=== PATIENT | female | born 1935 | race Caucasian/White ===

== ENCOUNTER 2019-02-21 07:50 | Inpatient (IN) ==
--- NOTE | 2019-02-21 08:10 | Emergency Department Note ---
Female Urogenital HPI - General Chief complaint: Urogenital-Female Stated complaint: Urinary frequency since friday Time Seen by Provider: 02/21/19 07:59 Source: patient Mode of arrival: wheelchair - History of Present Illness HPI Narrative: History of urinary frequency this morning. Symptoms started last night. She does have history of gout., Difficulty getting around. Generalized weakness. Associated nausea this morning she vomited up her tablets that she usually takes every morning. Didn't feel well. Denies abdominal pain but she was up all night every 20 minutes going to the bathroom. Feverish although temperature is normal today. Did have chills. Denies diarrhea, denies abdominal pain except burning with urination. MD Complaint: dysuria - Related Data Home Medications Medication Instructions Recorded Confirmed ketoconazole 2 % topical cream 1 applic TOPICAL BID g 03/09/15 10/02/18 omeprazole 20 mg capsule,delayed 20 mg PO QDAY cap 03/09/15 01/15/19 release spironolactone 25 mg tablet 25 mg PO QDAY tab 03/09/15 01/15/19 Cholesterol Formula See Dose Instructions PO 03/31/15 01/15/19 Flexcin See Dose Instructions PO 03/31/15 01/15/19 black branch See Dose Instructions PO 03/31/15 01/15/19 lactobacillus combination no.8 PO .QD 03/31/15 01/15/19 multivitamin,ik-rxxj-bhiubkar 1 tab PO QDAY 03/31/15 01/15/19 tablet Lou-C tablet PO QDAY 08/13/17 01/15/19 calcium mag d3 See Rx Instructions PO .COMPLEX 08/13/17 01/15/19 clobetasol 0.05 % scalp solution 1 applic TOPICAL ONCE PRN 08/13/17 10/02/18 esterified estrogens 0.625 mg 1 mg PO QDAY tab 08/13/17 01/15/19 tablet fluticasone 250 mcg-salmeterol 50 1 inh INHALATION Q12H PRN 08/13/17 01/15/19 mcg/dose blistr powdr for inhalation garlic lecthin PO BID 08/13/17 01/15/19 acetaminophen 500 mg capsule 1,000 mg PO TID cap 01/09/18 01/15/19 olmesartan 40 mg tablet See Rx Instructions .ROUTE 01/09/18 01/15/19 .COMPLEX tab omega 3 600 mg-dha 216 mg-epa 324 1 cap PO QDAY cap 01/09/18 01/15/19 mg-fish oil 1,200 mg capsule,del rel sennosides 8.6 mg tablet 25.8 mg PO QDAY tab 01/09/18 10/02/18 Previous Rx's Medication Instructions Recorded mupirocin 2 % topical ointment 1 applic TOPICAL BID #22 g 10/09/17 methylprednisolone 4 mg tablets in See Rx Instructions PO PER PKG DIR 06/05/18 a dose pack PRN #21 tab prednisone 5 mg tablet 5 mg PO QDAY #90 tab 01/08/19 febuxostat 80 mg tablet 80 mg PO QDAY #30 tab 01/11/19 Allergies Allergy/AdvReac Type Severity Reaction Status Date / Time MONTY Inhibitors Allergy Severe Unknown Unverified 02/21/19 07:55 albuterol Allergy Severe Unknown Unverified 02/21/19 07:55 [From Proventil HFA] allopurinol Allergy Severe Unknown Unverified 02/21/19 07:55 amlodipine [From Norvasc] Allergy Severe Unknown Unverified 02/21/19 07:55 ARB-Angiotensin Receptor Allergy Severe Unknown Unverified 02/21/19 07:55 Antagonist aspirin Allergy Severe Unknown Unverified 02/21/19 07:55 Beta-Blockers Allergy Severe Unknown Unverified 02/21/19 07:55 (Beta-Adrenergic Bloc Calcium Channel Blocking Allergy Severe Unknown Unverified 02/21/19 07:55 Agents-Chetan Carbetapentane Allergy Severe Unknown Unverified 02/21/19 07:55 [From Carba-XP] celecoxib [From Celebrex] Allergy Severe Unknown Unverified 02/21/19 07:55 clonidine Allergy Severe Unknown Unverified 02/21/19 07:55 codeine Allergy Severe Unknown Unverified 02/21/19 07:55 colchicine Allergy Severe Unknown Unverified 02/21/19 07:55 diltiazem [From Cardizem] Allergy Severe Unknown Unverified 02/21/19 07:55 doxycycline Allergy Severe Unknown Unverified 02/21/19 07:55 enalaprilat [From Vasotec] Allergy Severe Unknown Unverified 02/21/19 07:55 epoxy resin Allergy Severe Unknown Unverified 02/21/19 07:55 formaldehyde Allergy Severe Unknown Unverified 02/21/19 07:55 guaifenesin [From Carba-XP] Allergy Severe Unknown Unverified 02/21/19 07:55 hydrochlorothiazide Allergy Severe Unknown Unverified 02/21/19 07:55 [From Maxzide] hydrocodone Allergy Severe Unknown Unverified 02/21/19 07:55 iodine Allergy Severe Unknown Unverified 02/21/19 07:55 isradipine [From DynaCirc] Allergy Severe Unknown Unverified 02/21/19 07:55 lansoprazole [From Prevacid] Allergy Severe Unknown Unverified 02/21/19 07:55 nadolol [From Corgard] Allergy Severe Unknown Unverified 02/21/19 07:55 naproxen [From Naprosyn] Allergy Severe Unknown Unverified 02/21/19 07:55 Penicillins Allergy Severe Unknown Unverified 02/21/19 07:55 piroxicam [From Feldene] Allergy Severe Unknown Unverified 02/21/19 07:55 potassium Allergy Severe Unknown Unverified 02/21/19 07:55 salmeterol [From Serevent] Allergy Severe Unknown Unverified 02/21/19 07:55 Terazosin [From Hytrin] Allergy Severe Unknown Unverified 02/21/19 07:55 theophylline Allergy Severe Unknown Unverified 02/21/19 07:55 trandolapril [From Mavik] Allergy Severe Unknown Unverified 02/21/19 07:55 Triamterene [From Maxzide] Allergy Severe Unknown Unverified 02/21/19 07:55 Verapamil [From Isoptin] Allergy Severe Unknown Unverified 02/21/19 07:55 acetaminophen [From Vicodin] Allergy Intermediate Unknown Unverified 02/21/19 07:55 methocarbamol Allergy Intermediate Unknown Unverified 02/21/19 07:55 quinapril [From Accupril] Allergy Intermediate Unknown Unverified 02/21/19 07:55 cetirizine [From Zyrtec] Allergy Mild Unknown Unverified 02/21/19 07:55 doxazosin [From Cardura] Allergy Mild Unknown Unverified 02/21/19 07:55 atorvastatin [From Lipitor] Allergy Unknown Unknown Unverified 02/21/19 07:55 olmesartan Allergy Unknown Severe Verified 02/21/19 07:55 Edema Review of Systems Constitutional: Reports: fever, chills ENT ED: Reports: other (dry mouth). Denies: throat pain Cardiovascular: Denies: chest pain, palpitations Respiratory: Denies: shortness of breath Gastrointestinal: Reports: nausea, vomiting. Denies: abdominal pain Genitourinary: Reports: dysuria, urgency, frequency Past Medical History - Past Medical History Source: nursing notes reviewed Medical history: Reports: arthritis, asthma, GERD, hypertension, renal disease, other Surgical history ED: Reports: appendectomy, hysterectomy, tonsillectomy Family history: Reports: no significant family history - Social History smoking status: Never smoker Alcohol use: Reports: None Drug use: Reports: none Physical Exam Limitations: no limitations General appearance: alert, in no apparent distress, lethargic, obese Head: atraumatic, normocephalic, normal inspection Eye: Present: normal appearance, PERRL, EOMI. Absent: conjunctival injection ENT: Present: mucous membranes dry, TM's normal bilaterally, normal external ear exam. Absent: dental caries Neck: Present: normal inspection, full ROM, trachea midline. Absent: tenderness, meningismus Chest: Present: normal inspection, symmetric chest wall rise, tenderness Respiratory: Present: normal lung sounds bilaterally. Absent: respiratory distress, rales/crackles, wheezes Cardiovascular: Present: regular rate, normal rhythm, normal heart sounds Abdominal: Present: soft, normal bowel sounds. Absent: distention, tenderness, guarding Extremities: Present: normal inspection, full ROM, other (deformity of the MCPs both sides.). Absent: tenderness, pedal edema, joint swelling, calf tenderness Back: Present: normal inspection, other (thoracic kyphosis.). Absent: CVA tenderness (R), CVA tenderness (L) Neurological: Present: alert, oriented X3, CN II-XII intact, other (generally weak appearing). Absent: motor sensory deficit Psychiatric: Present: normal affect Skin: Present: warm, dry, normal color. Absent: rash Course - Reevaluation(s) Reevaluation #1: Signed out to Dr. peters 9 AM. Vital Signs Temperature 97.8 F 02/21/19 07:51 Pulse Rate 97 H 02/21/19 07:51 Respiratory Rate 20 02/21/19 07:51 Blood Pressure 154/82 02/21/19 07:51 Pulse Oximetry (%) 94 02/21/19 07:51 Temperature 97.8 F 02/21/19 07:51 Pulse Rate 97 H 02/21/19 07:51 Respiratory Rate 20 02/21/19 07:51 Blood Pressure 154/82 02/21/19 07:51 Pulse Oximetry (%) 94 02/21/19 07:51 Urogenital-Female - Lab Data Result diagrams: 02/21/19 08:23 02/21/19 08:23 Disposition Pt seen by DETECTOR CAR OPERATOR/PA only: No Clinical Impression: Urinary tract infection Disposition: Still a Patient Condition: Undetermined Referrals: Yohana Feliciano MD [Primary Care Provider] -
[2019-02-21] MEDS ORDERED: ONDANSETRON 4 MG/2 ML VIAL IV ONE (08:12)
[2019-02-21] MEDS ORDERED: LACTATED RINGERS 1,000 ML IV ONE (08:12)
[2019-02-21] MEDS ORDERED: ACETAMINOPHEN 325 MG TABLET PO ONE ×2 (08:16→13:17)
[2019-02-21 09:03] LABS: Basophils # (Auto) 0 K/mcL (0.0-0.3); Basophils % (Auto) 0 % (0.0-2.0); Eosinophils # (Auto) 0.1 K/mcL (0.0-0.7); Eosinophils % (Auto) 0.7 % (0.0-7.0); Granulocytes % (Auto) 94.1 % (38.0-78.0); Hematocrit 41.8 % (36.0-48.0); Hemoglobin 14.1 g/dL (12.0-15.0); Lymphocytes # (Auto) 0.5 K/mcL (1.5-4.8); Lymphocytes % (Auto) 4.8 % (15.5-49.0); Mean Cell Volume 90.3 fL (80.0-100.0); Mean Corpuscular HGB Conc 33.8 g/dL (31.0-36.0); Mean Platelet Volume 7.4 fL (7.4-10.4); Monocytes # (Auto) 0 K/mcL (0.1-0.9); Monocytes % (Auto) 0.4 % (1.0-12.0); Platelet Count 121 K/mcL (140-440); RBC 4.63 M/mcL (4.00-5.20); Red Cell Distribution Width 14.4 % (11.5-14.5); WBC 10.4 K/mcL (4.5-11.0)
[2019-02-21 09:12] LABS: ALT/SGPT 29 U/l (0-40); AST/SGOT 35 U/l (0-37); Albumin/Globulin Ratio 1.5 (1.0-2.3); Alkaline Phosphatase 49 U/L (39-117); Bilirubin,Total 1.1 mg/dL (0.0-1.0); Blood Urea Nitrogen 16 mg/dl (8-23); C-Reactive Protein 7.2 mg/dl (0.0-0.8); Calcium 9.5 mg/dl (8.6-10.4); Carbon Dioxide 25 mmol/L (22-30); Chloride 96 mmol/L (96-108); Globulin 2.7 gm/dL (2.2-3.7); Glomerular Filtration Rate 46; Glucose 140 mg/dL (70-105)
[2019-02-21 10:00] LABS: Appearance,Urine CLOUDY; Bacteria,Urine FEW /hpf (0); Bilirubin,Urine NEG (NEG); Color,Urine YELLOW; Culture Indicated,Urine YES; Glucose,Urine (UA) NEGATIVE (NEG); Ketones,Urine 5/TR mg/dL (NEG); Leukocyte Esterase,Urine 500 /uL (NEG); Mucus,Urine FEW /hpf (0); Nitrate,Urine NEG (NEG); Protein,Urine 100 mg/dL (NEG); Specific Gravity,Urine 1.014 (1.000-1.035); Urine Blood >=1.0 mg/dL (<0.03); Urine RBC 110 /hpf (0-1); Urine Squamous Epithelial Cell 1 /hpf (0-4); Urine WBC > 182 /hpf (0-4); Urobilinogen,Urine NEG (NEG)
[2019-02-21] MEDS ORDERED: LEVOFLOXACIN 750 MG/150 ML BAG IV ONE (10:18)
[2019-02-21] MEDS ORDERED: 0.9 % SODIUM CHLORIDE 1,000 ML IV ONE ×2 (12:03→13:44)
--- NOTE | 2019-02-21 13:57 | Emergency Department Note ---
General Adult HPI - General Chief complaint: Urogenital-Female Stated complaint: Urinary frequency since friday Time Seen by Provider: 02/21/19 07:59 Source: patient Mode of arrival: wheelchair Limitations: no limitations - Related Data Home Medications Medication Instructions Recorded Confirmed ketoconazole 2 % topical cream 1 applic TOPICAL BID g 03/09/15 10/02/18 omeprazole 20 mg capsule,delayed 20 mg PO QDAY cap 03/09/15 01/15/19 release spironolactone 25 mg tablet 25 mg PO QDAY tab 03/09/15 01/15/19 Cholesterol Formula See Dose Instructions PO 03/31/15 01/15/19 Flexcin See Dose Instructions PO 03/31/15 01/15/19 black branch See Dose Instructions PO 03/31/15 01/15/19 lactobacillus combination no.8 PO .QD 03/31/15 01/15/19 multivitamin,rm-dmbt-iprbajmw 1 tab PO QDAY 03/31/15 01/15/19 tablet Lou-C tablet PO QDAY 08/13/17 01/15/19 calcium mag d3 See Rx Instructions PO .COMPLEX 08/13/17 01/15/19 clobetasol 0.05 % scalp solution 1 applic TOPICAL ONCE PRN 08/13/17 10/02/18 esterified estrogens 0.625 mg 1 mg PO QDAY tab 08/13/17 01/15/19 tablet fluticasone 250 mcg-salmeterol 50 1 inh INHALATION Q12H PRN 08/13/17 01/15/19 mcg/dose blistr powdr for inhalation garlic lecthin PO BID 08/13/17 01/15/19 acetaminophen 500 mg capsule 1,000 mg PO TID cap 01/09/18 01/15/19 olmesartan 40 mg tablet See Rx Instructions .ROUTE 01/09/18 01/15/19 .COMPLEX tab omega 3 600 mg-dha 216 mg-epa 324 1 cap PO QDAY cap 01/09/18 01/15/19 mg-fish oil 1,200 mg capsule,del rel sennosides 8.6 mg tablet 25.8 mg PO QDAY tab 01/09/18 10/02/18 Previous Rx's Medication Instructions Recorded mupirocin 2 % topical ointment 1 applic TOPICAL BID #22 g 10/09/17 methylprednisolone 4 mg tablets in See Rx Instructions PO PER PKG DIR 06/05/18 a dose pack PRN #21 tab prednisone 5 mg tablet 5 mg PO QDAY #90 tab 01/08/19 febuxostat 80 mg tablet 80 mg PO QDAY #30 tab 01/11/19 Allergies Allergy/AdvReac Type Severity Reaction Status Date / Time MONTY Inhibitors Allergy Severe Unknown Unverified 02/21/19 07:55 albuterol Allergy Severe Unknown Unverified 02/21/19 07:55 [From Proventil HFA] allopurinol Allergy Severe Unknown Unverified 02/21/19 07:55 amlodipine [From Norvasc] Allergy Severe Unknown Unverified 02/21/19 07:55 ARB-Angiotensin Receptor Allergy Severe Unknown Unverified 02/21/19 07:55 Antagonist aspirin Allergy Severe Unknown Unverified 02/21/19 07:55 Beta-Blockers Allergy Severe Unknown Unverified 02/21/19 07:55 (Beta-Adrenergic Bloc Calcium Channel Blocking Allergy Severe Unknown Unverified 02/21/19 07:55 Agents-Chetan Carbetapentane Allergy Severe Unknown Unverified 02/21/19 07:55 [From Carba-XP] celecoxib [From Celebrex] Allergy Severe Unknown Unverified 02/21/19 07:55 clonidine Allergy Severe Unknown Unverified 02/21/19 07:55 codeine Allergy Severe Unknown Unverified 02/21/19 07:55 colchicine Allergy Severe Unknown Unverified 02/21/19 07:55 diltiazem [From Cardizem] Allergy Severe Unknown Unverified 02/21/19 07:55 doxycycline Allergy Severe Unknown Unverified 02/21/19 07:55 enalaprilat [From Vasotec] Allergy Severe Unknown Unverified 02/21/19 07:55 epoxy resin Allergy Severe Unknown Unverified 02/21/19 07:55 formaldehyde Allergy Severe Unknown Unverified 02/21/19 07:55 guaifenesin [From Carba-XP] Allergy Severe Unknown Unverified 02/21/19 07:55 hydrochlorothiazide Allergy Severe Unknown Unverified 02/21/19 07:55 [From Maxzide] hydrocodone Allergy Severe Unknown Unverified 02/21/19 07:55 iodine Allergy Severe Unknown Unverified 02/21/19 07:55 isradipine [From DynaCirc] Allergy Severe Unknown Unverified 02/21/19 07:55 lansoprazole [From Prevacid] Allergy Severe Unknown Unverified 02/21/19 07:55 nadolol [From Corgard] Allergy Severe Unknown Unverified 02/21/19 07:55 naproxen [From Naprosyn] Allergy Severe Unknown Unverified 02/21/19 07:55 Penicillins Allergy Severe Unknown Unverified 02/21/19 07:55 piroxicam [From Feldene] Allergy Severe Unknown Unverified 02/21/19 07:55 potassium Allergy Severe Unknown Unverified 02/21/19 07:55 salmeterol [From Serevent] Allergy Severe Unknown Unverified 02/21/19 07:55 Terazosin [From Hytrin] Allergy Severe Unknown Unverified 02/21/19 07:55 theophylline Allergy Severe Unknown Unverified 02/21/19 07:55 trandolapril [From Mavik] Allergy Severe Unknown Unverified 02/21/19 07:55 Triamterene [From Maxzide] Allergy Severe Unknown Unverified 02/21/19 07:55 Verapamil [From Isoptin] Allergy Severe Unknown Unverified 02/21/19 07:55 acetaminophen [From Vicodin] Allergy Intermediate Unknown Unverified 02/21/19 07:55 methocarbamol Allergy Intermediate Unknown Unverified 02/21/19 07:55 quinapril [From Accupril] Allergy Intermediate Unknown Unverified 02/21/19 07:55 cetirizine [From Zyrtec] Allergy Mild Unknown Unverified 02/21/19 07:55 doxazosin [From Cardura] Allergy Mild Unknown Unverified 02/21/19 07:55 atorvastatin [From Lipitor] Allergy Unknown Unknown Unverified 02/21/19 07:55 olmesartan Allergy Unknown Severe Verified 02/21/19 07:55 Edema Review of Systems Constitutional: Reports: fever, chills ENT ED: Reports: other (dry mouth). Denies: throat pain Cardiovascular: Denies: chest pain, palpitations Respiratory: Denies: shortness of breath Gastrointestinal: Reports: nausea, vomiting. Denies: abdominal pain Genitourinary: Reports: dysuria, urgency, frequency Past Medical History - Past Medical History Medical history: Reports: arthritis, asthma, GERD, hypertension, renal disease, other Surgical history ED: Reports: appendectomy, hysterectomy, tonsillectomy - Social History smoking status: Never smoker Alcohol use: Reports: None Drug use: Reports: none Physical Exam Limitations: no limitations General appearance: alert, in no apparent distress, lethargic, obese Course Vital Signs Temperature 97.8 F 02/21/19 07:51 Pulse Rate 97 H 02/21/19 07:51 Respiratory Rate 20 02/21/19 07:51 Blood Pressure 154/82 02/21/19 07:51 Pulse Oximetry (%) 94 02/21/19 07:51 Temperature 101 F H 02/21/19 13:24 Pulse Rate 78 02/21/19 13:30 Respiratory Rate 21 02/21/19 13:30 Blood Pressure 120/97 02/21/19 13:30 Pulse Oximetry (%) 100 02/21/19 13:50 Medical Decision Making - MDM Narrative Medical decision making narrative: Patient's initial note lab work was suggestive of UTI. He was treated with IV Levaquin. Her lactic acid was slightly elevated at 2.4 and she was hydrated. After receiving the antibiotic she developed fever and chills and her temperature went from 97-101. Her O2 saturation dropped slightly. However chest x-ray looks normal. She will be admitted to the hospital for potential urosepsis. - Lab Data Lab results reviewed: Yes I reviewed the patient's lab results. Result diagrams: 02/21/19 08:23 02/21/19 08:23 Lab Results 02/21/19 02/21/19 02/21/19 Range/Units 08:14 08:23 08:23 WBC 10.4 (4.5-11.0) K/mcL RBC 4.63 (4.00-5.20) M/mcL Hgb 14.1 (12.0-15.0) g/dL Hct 41.8 (36.0-48.0) % MCV 90.3 (80.0-100.0) fL MCH 30.5 (26.0-34.0) pg MCHC 33.8 (31.0-36.0) g/dL RDW 14.4 (11.5-14.5) % Plt Count 121 L (140-440) K/mcL MPV 7.4 (7.4-10.4) fL Gran % 94.1 H (38.0-78.0) % Lymph % (Auto) 4.8 L (15.5-49.0) % Kidder % (Auto) 0.4 L (1.0-12.0) % Eos % (Auto) 0.7 (0.0-7.0) % Baso % (Auto) 0 (0.0-2.0) % Gran # 9.8 H (1.8-8.0) K/mcL Lymph # (Auto) 0.5 L (1.5-4.8) K/mcL Kidder # (Auto) 0 L (0.1-0.9) K/mcL Eos # (Auto) 0.1 (0.0-0.7) K/mcL Baso # (Auto) 0 (0.0-0.3) K/mcL VBG Lactic Acid (0.5-2.0) mmol/L Sodium 137 (133-145) mmol/L Potassium 4.4 (3.3-5.1) mmol/L Chloride 96 (96-108) mmol/L Carbon Dioxide 25 (22-30) mmol/L Anion Gap 16.0 (8-16) BUN 16 (8-23) mg/dl Creatinine 1.1 (0.6-1.1) mg/dl GFR Calculation 46 Glucose 140 H (70-105) mg/dL Calcium 9.5 (8.6-10.4) mg/dl Total Bilirubin 1.1 H (0.0-1.0) mg/dL AST 35 (0-37) U/l ALT 29 (0-40) U/l Alkaline Phosphatase 49 (39-117) U/L C-Reactive Protein 7.2 H (0.0-0.8) mg/dl Total Protein 6.7 (5.9-8.4) gm/dL Albumin 4.0 (3.2-5.2) gm/dL Globulin 2.7 (2.2-3.7) gm/dL Albumin/Globulin Ratio 1.5 (1.0-2.3) Urine Color Yellow Urine Appearance Cloudy Urine pH 5.0 (5.0-9.0) Ur Specific Micro 1.014 (1.000-1.035) Urine Protein 100 A (NEG) mg/dL Urine Glucose (UA) Negative (NEG) mg/dL Urine Ketones 5/tr A (NEG) mg/dL Urine Occult Blood >=1.0 A (<0.03) mg/dL Urine Nitrate Neg (NEG) Urine Bilirubin Neg (NEG) mg/dL Urine Urobilinogen Neg (NEG) mg/dL Ur Leukocyte Esterase 500 A (NEG) /uL Urine RBC 110 H (0-1) /hpf Urine WBC > 182 H (0-4) /hpf Ur Squamous Epith Cells 1 (0-4) /hpf Urine Bacteria Few A (0) /hpf Urine Mucus Few (0) /hpf Ur Culture Indicated? Yes 02/21/19 02/21/19 Range/Units 08:23 12:26 WBC (4.5-11.0) K/mcL RBC (4.00-5.20) M/mcL Hgb (12.0-15.0) g/dL Hct (36.0-48.0) % MCV (80.0-100.0) fL MCH (26.0-34.0) pg MCHC (31.0-36.0) g/dL RDW (11.5-14.5) % Plt Count (140-440) K/mcL MPV (7.4-10.4) fL Gran % (38.0-78.0) % Lymph % (Auto) (15.5-49.0) % Kidder % (Auto) (1.0-12.0) % Eos % (Auto) (0.0-7.0) % Baso % (Auto) (0.0-2.0) % Gran # (1.8-8.0) K/mcL Lymph # (Auto) (1.5-4.8) K/mcL Kidder # (Auto) (0.1-0.9) K/mcL Eos # (Auto) (0.0-0.7) K/mcL Baso # (Auto) (0.0-0.3) K/mcL VBG Lactic Acid 2.4 H 1.8 (0.5-2.0) mmol/L Sodium (133-145) mmol/L Potassium (3.3-5.1) mmol/L Chloride (96-108) mmol/L Carbon Dioxide (22-30) mmol/L Anion Gap (8-16) BUN (8-23) mg/dl Creatinine (0.6-1.1) mg/dl GFR Calculation Glucose (70-105) mg/dL Calcium (8.6-10.4) mg/dl Total Bilirubin (0.0-1.0) mg/dL AST (0-37) U/l ALT (0-40) U/l Alkaline Phosphatase (39-117) U/L C-Reactive Protein (0.0-0.8) mg/dl Total Protein (5.9-8.4) gm/dL Albumin (3.2-5.2) gm/dL Globulin (2.2-3.7) gm/dL Albumin/Globulin Ratio (1.0-2.3) Urine Color Urine Appearance Urine pH (5.0-9.0) Ur Specific Micro (1.000-1.035) Urine Protein (NEG) mg/dL Urine Glucose (UA) (NEG) mg/dL Urine Ketones (NEG) mg/dL Urine Occult Blood (<0.03) mg/dL Urine Nitrate (NEG) Urine Bilirubin (NEG) mg/dL Urine Urobilinogen (NEG) mg/dL Ur Leukocyte Esterase (NEG) /uL Urine RBC (0-1) /hpf Urine WBC (0-4) /hpf Ur Squamous Epith Cells (0-4) /hpf Urine Bacteria (0) /hpf Urine Mucus (0) /hpf Ur Culture Indicated? - Radiology Data Radiology results reviewed: Yes I reviewed the patient's radiology results. Disposition Pt seen by STAMPING BENCH DIE MAKER/PA only: No Clinical Impression: Urinary tract infection Disposition: Xfer As Inpt ([facility]) Condition: Good Referrals: Yohana Feliciano MD [Primary Care Provider] - Time of Disposition: 13:57
--- NOTE | 2019-02-21 14:00 | XRay Report ---
CLINICAL INFORMATION: Hypoxia COMPARISON: 10/07/2018 FINDINGS: Film taken a suboptimal inspiratory result shows normal heart size, mediastinum and pulmonary vessels. Lungs are clear. No effusions. IMPRESSION: Normal Interpreted and Authenticated by: Jovon Ford 02/21/19
--- NOTE | 2019-02-21 14:56 | Internal Med History&Physical ---
Medical - H&P: HPI Patient information: Note initiated : 02/21/19 at 2:53 pm Service Date, if different from initiated Date: [] Patient: Idalia Holloway 83 y/o F admitted on for Urinary Frequency Since Friday. Chief Complaint: [] History of present illness: Ms. Holloway is a 83 year old F Patient presents to the ED with urinary frequency dysuria generalized malaise and chills. Take her morning medication this morning and had episode of nausea and vomiting. In the ED she was evaluated and found to have urinary tract infection. He was given a dose of Levaquin. 15 to 20 minutes after that she developed increased temperature some hypoxia and shaking. Lactate was also elevated initially. There was concern that this was developing sepsis. Hospitalist was contacted blood pressure started trending down towards the end of the ED stay. Patient complains of dysuria and urinary frequency. She was up most of the night last night urinating. Review of Systems: Pertinent positives as above. Denies headache/chest or abdominal pain/cough/dyspnea/diarrhea. Remaining 10 point review of system reviewed negative Medical - H&P: PMH Medical history: Medical History (Last Reviewed 10/02/18 @ 08:11 by Alma Delia Gillespie RN) senior care (current) use of systemic steroids (Acute) Left shoulder pain (Acute) Hyperuricemia (Chronic) Encounter for long-term (current) use of high-risk medication (Acute) Tophaceous gout (Acute) Hypertensive renal disease (Chronic) CKD (chronic kidney disease), stage III (Chronic) History of hysterectomy (Chronic) Hormone replacement therapy (Chronic) GERD (gastroesophageal reflux disease) (Chronic) Asthma (Chronic) Raynaud's syndrome (Chronic) Hyperlipidemia (Chronic) Right shoulder pain (Chronic) Osteoarthritis (Chronic) Tailor's bunion (Chronic) Social History (Last Updated 01/15/19 @ 09:38 by Don Spencer MD) No Social History Section defined Metatarsalgia (Chronic) Hyperkeratosis (Chronic) Porokeratosis (Chronic) 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) Gout (Chronic) Hypertension, essential (Chronic) Dysuria (Chronic) Past Surgical History (Last Reviewed 10/02/18 @ 08:11 by Alma Delia Gillespie RN) History of adenoidectomy (Chronic) History of tonsillectomy (Chronic) History of appendectomy (Chronic) Social history: Never smoker but exposed to secondhand smoke No alcohol use Ambulates independently Lives with daughter Medical - H&P: Meds Home Medications Medication Instructions Recorded Confirmed Type ketoconazole 2 % topical cream 1 applic TOPICAL BID g 03/09/15 10/02/18 History omeprazole 20 mg capsule,delayed 20 mg PO QDAY cap 03/09/15 01/15/19 History release spironolactone 25 mg tablet 25 mg PO QDAY tab 03/09/15 01/15/19 History Cholesterol Formula See Dose Instructions PO 03/31/15 01/15/19 History Flexcin See Dose Instructions PO 03/31/15 01/15/19 History black branch See Dose Instructions PO 03/31/15 01/15/19 History lactobacillus combination no.8 PO .QD 03/31/15 01/15/19 History multivitamin,[id number]-[id number] 1 tab PO QDAY 03/31/15 01/15/19 History tablet Lou-C tablet PO QDAY 08/13/17 01/15/19 History calcium mag d3 See Rx Instructions PO .COMPLEX 08/13/17 01/15/19 History clobetasol 0.05 % scalp solution 1 applic TOPICAL ONCE PRN 08/13/17 10/02/18 History esterified estrogens 0.625 mg 1 mg PO QDAY tab 08/13/17 01/15/19 History tablet fluticasone 250 mcg-salmeterol 50 1 inh INHALATION Q12H PRN 08/13/17 01/15/19 History mcg/dose blistr powdr for inhalation garlic lecthin PO BID 08/13/17 01/15/19 History mupirocin 2 % topical ointment 1 applic TOPICAL BID #22 g 10/09/17 10/02/18 Rx acetaminophen 500 mg capsule 1,000 mg PO TID cap 01/09/18 01/15/19 History olmesartan 40 mg tablet See Rx Instructions .ROUTE 01/09/18 01/15/19 History .COMPLEX tab omega 3 600 mg-dha 216 mg-epa 324 1 cap PO QDAY cap 01/09/18 01/15/19 History mg-fish oil 1,200 mg capsule,del rel sennosides 8.6 mg tablet 25.8 mg PO QDAY tab 01/09/18 10/02/18 History methylprednisolone 4 mg tablets in See Rx Instructions PO PER PKG DIR 06/05/18 01/15/19 Rx a dose pack PRN #21 tab prednisone 5 mg tablet 5 mg PO QDAY #90 tab 01/08/19 Rx febuxostat 80 mg tablet 80 mg PO QDAY #30 tab 01/11/19 01/15/19 Rx Allergies Allergy/AdvReac Type Severity Reaction Status Date / Time MONTY Inhibitors Allergy Severe Unknown Unverified 02/21/19 07:55 albuterol Allergy Severe Unknown Unverified 02/21/19 07:55 [From Proventil HFA] allopurinol Allergy Severe Unknown Unverified 02/21/19 07:55 amlodipine [From Norvasc] Allergy Severe Unknown Unverified 02/21/19 07:55 ARB-Angiotensin Receptor Allergy Severe Unknown Unverified 02/21/19 07:55 Antagonist aspirin Allergy Severe Unknown Unverified 02/21/19 07:55 Beta-Blockers Allergy Severe Unknown Unverified 02/21/19 07:55 (Beta-Adrenergic Bloc Calcium Channel Blocking Allergy Severe Unknown Unverified 02/21/19 07:55 Agents-Chetan Carbetapentane Allergy Severe Unknown Unverified 02/21/19 07:55 [From Carba-XP] celecoxib [From Celebrex] Allergy Severe Unknown Unverified 02/21/19 07:55 clonidine Allergy Severe Unknown Unverified 02/21/19 07:55 codeine Allergy Severe Unknown Unverified 02/21/19 07:55 colchicine Allergy Severe Unknown Unverified 02/21/19 07:55 diltiazem [From Cardizem] Allergy Severe Unknown Unverified 02/21/19 07:55 doxycycline Allergy Severe Unknown Unverified 02/21/19 07:55 enalaprilat [From Vasotec] Allergy Severe Unknown Unverified 02/21/19 07:55 epoxy resin Allergy Severe Unknown Unverified 02/21/19 07:55 formaldehyde Allergy Severe Unknown Unverified 02/21/19 07:55 guaifenesin [From Carba-XP] Allergy Severe Unknown Unverified 02/21/19 07:55 hydrochlorothiazide Allergy Severe Unknown Unverified 02/21/19 07:55 [From Maxzide] hydrocodone Allergy Severe Unknown Unverified 02/21/19 07:55 iodine Allergy Severe Unknown Unverified 02/21/19 07:55 isradipine [From DynaCirc] Allergy Severe Unknown Unverified 02/21/19 07:55 lansoprazole [From Prevacid] Allergy Severe Unknown Unverified 02/21/19 07:55 nadolol [From Corgard] Allergy Severe Unknown Unverified 02/21/19 07:55 naproxen [From Naprosyn] Allergy Severe Unknown Unverified 02/21/19 07:55 Penicillins Allergy Severe Unknown Unverified 02/21/19 07:55 piroxicam [From Feldene] Allergy Severe Unknown Unverified 02/21/19 07:55 potassium Allergy Severe Unknown Unverified 02/21/19 07:55 salmeterol [From Serevent] Allergy Severe Unknown Unverified 02/21/19 07:55 Terazosin [From Hytrin] Allergy Severe Unknown Unverified 02/21/19 07:55 theophylline Allergy Severe Unknown Unverified 02/21/19 07:55 trandolapril [From Mavik] Allergy Severe Unknown Unverified 02/21/19 07:55 Triamterene [From Maxzide] Allergy Severe Unknown Unverified 02/21/19 07:55 Verapamil [From Isoptin] Allergy Severe Unknown Unverified 02/21/19 07:55 acetaminophen [From Vicodin] Allergy Intermediate Unknown Unverified 02/21/19 07:55 methocarbamol Allergy Intermediate Unknown Unverified 02/21/19 07:55 quinapril [From Accupril] Allergy Intermediate Unknown Unverified 02/21/19 07:55 cetirizine [From Zyrtec] Allergy Mild Unknown Unverified 02/21/19 07:55 doxazosin [From Cardura] Allergy Mild Unknown Unverified 02/21/19 07:55 atorvastatin [From Lipitor] Allergy Unknown Unknown Unverified 02/21/19 07:55 olmesartan Allergy Unknown Severe Verified 02/21/19 07:55 Edema Medical - H&P: Exam - Constitutional Vitals: Temp Pulse Resp BP Pulse Ox 99.4 F H 92 H 20 94/70 90 02/21/19 14:09 02/21/19 14:01 02/21/19 14:01 02/21/19 14:39 02/21/19 14:15 Exam: General: Alert, Awake, No acute Distress, obese Eyes/N/T: EOMI, PEERL, DMM Head/Neck: neck supple, normocephalic atraumatic CV: RRR, No murmurs, normal s1/s2 Pulm: Clear b/l, no wheezing/rhonchi/rales Abd: soft, nontender, +BS x4 Ext: no clubbing/cyanosis/edema Neuro: Alert, no focal deficits, moves all extremities, CN 2-12 grossly intact, symmetrical strength b/l upper/lower, sensations intact b/l upper/lower Skin: warm/dry Medical - H&P: Reslt - Labs CBC & Chem 7: 02/21/19 08:23 02/21/19 08:23 Labs: Short CBC 02/21/19 Range/Units 08:23 WBC 10.4 (4.5-11.0) K/mcL Hgb 14.1 (12.0-15.0) g/dL Hct 41.8 (36.0-48.0) % Plt Count 121 L (140-440) K/mcL BMP 02/21/19 08:23 Sodium 137 Potassium 4.4 Chloride 96 Carbon Dioxide 25 BUN 16 Creatinine 1.1 Glucose 140 H Calcium 9.5 Liver Function 02/21/19 Range/Units 08:23 Total Bilirubin 1.1 H (0.0-1.0) mg/dL AST 35 (0-37) U/l ALT 29 (0-40) U/l Alkaline Phosphatase 49 (39-117) U/L Albumin 4.0 (3.2-5.2) gm/dL Urine 02/21/19 Range/Units 08:14 Urine Color Yellow Urine Appearance Cloudy Urine pH 5.0 (5.0-9.0) Ur Specific Loop 1.014 (1.000-1.035) Urine Protein 100 A (NEG) mg/dL Urine Glucose (UA) Negative (NEG) mg/dL - Impressions Chest x-ray unremarkable Medical - H&P: A/P - Narrative A/P Narrative: A: *UTI: *SIRS: *Likely Allergic Rxn to Levaquin *lactic acidosis: improved *CKD III: Follows with nephrology *HTN: *GERD: *Gout: Follows with Dr. Calixto -On prednisone 5mg daily and Uloric *Immunosuppressed: see above *Asthma: P: -Rocephin, pending UC/BC -IVF's -cont ARB -home IH's, prn neb -Continue home prednisone -clarify home meds -ppx: Lovenox/home PPI DNR
[2019-02-21] MEDS ORDERED: ONDANSETRON 4 MG/2 ML VIAL IV PRN (17:09)
[2019-02-21] MEDS ORDERED: PROMETHAZINE 25 MG/ML VIAL IV PRN (17:09)
[2019-02-21] MEDS ORDERED: ALBUTEROL SULFATE 2.5 MG/3 ML NEBULIZER NEB PRN (17:09)
[2019-02-21] MEDS ORDERED: predniSONE 20 MG TABLET PO ONE (17:09)
[2019-02-21] MEDS ORDERED: cefTRIAXone 1 GM in DEXTROSE 5% IN WATER 50 ML IV SCH (17:09)
[2019-02-21] MEDS ORDERED: ACETAMINOPHEN 325 MG TABLET PO PRN (17:09)
[2019-02-21] MEDS ORDERED: BISACODYL 10 MG SUPP.RECT PR PRN (17:09)
[2019-02-21] MEDS ORDERED: 0.9 % SODIUM CHLORIDE 500 ML IV SCH (17:09)
[2019-02-21] MEDS: cefTRIAXone 1 GM VIAL IV SCH (19:07)
[2019-02-21] MEDS: 0.9 % SODIUM CHLORIDE 10 ML SYRINGE IV SCH (21:10)
[2019-02-21] MEDS: FAMOTIDINE 20 MG TABLET PO SCH (21:10)
[2019-02-22] MEDS: 0.9 % SODIUM CHLORIDE 10 ML SYRINGE IV SCH ×3 (06:21→20:19)
[2019-02-22 06:36] LABS: Basophils # (Auto) 0 K/mcL (0.0-0.3); Basophils % (Auto) 0 % (0.0-2.0); Eosinophils # (Auto) 0 K/mcL (0.0-0.7); Eosinophils % (Auto) 0 % (0.0-7.0); Granulocytes % (Auto) 93.4 % (38.0-78.0); Hematocrit 38.9 % (36.0-48.0); Hemoglobin 12.9 g/dL (12.0-15.0); Lymphocytes # (Auto) 0.8 K/mcL (1.5-4.8); Lymphocytes % (Auto) 4.9 % (15.5-49.0); Mean Cell Volume 92.8 fL (80.0-100.0); Mean Corpuscular HGB Conc 33.3 g/dL (31.0-36.0); Monocytes # (Auto) 0.3 K/mcL (0.1-0.9); Monocytes % (Auto) 1.7 % (1.0-12.0); Platelet Count 105 K/mcL (140-440); RBC 4.19 M/mcL (4.00-5.20); Red Cell Distribution Width 14.7 % (11.5-14.5); WBC 16.6 K/mcL (4.5-11.0)
[2019-02-22 06:54] LABS: ALT/SGPT 29 U/l (0-40); AST/SGOT 49 U/l (0-37); Albumin 3.2 gm/dL (3.2-5.2); Albumin/Globulin Ratio 1.1 (1.0-2.3); Alkaline Phosphatase 47 U/L (39-117); Bilirubin,Direct 0.3 mg/dL (0.0-0.3); Bilirubin,Total 0.6 mg/dL (0.0-1.0); Blood Urea Nitrogen 19 mg/dl (8-23); Calcium 8.5 mg/dl (8.6-10.4); Carbon Dioxide 21 mmol/L (22-30); Chloride 107 mmol/L (96-108); Globulin 2.8 gm/dL (2.2-3.7); Glomerular Filtration Rate 41; Glucose 167 mg/dL (70-105); Lactate Dehydrogenase 271 U/L (94-250); Phosphorous 2.3 mg/dL (2.7-4.5); Triglycerides 78 mg/dl (<150); Uric Acid 4.7 mg/dL (2.5-8.0)
[2019-02-22] MEDS ORDERED: CLOBETASOL PROPIONATE TOPICAL PRN (08:05)
--- NOTE | 2019-02-22 08:07 | Internal Med Progress Note ---
Medical - PN: Subj Patient information: Note initiated : 02/22/19 at 8:06 am Service Date, if different from initiated Date: [] Patient: Idalia Holloway 83 y/o F admitted on 02/21/19 for Urinary Frequency Since Friday. Chief Complaint: [] Interval history: Ms. Holloway is a 83 year old F Patient presents to the ED with urinary frequency dysuria generalized malaise and chills. Take her morning medication this morning and had episode of nausea and vomiting. In the ED she was evaluated and found to have urinary tract infection. He was given a dose of Levaquin. 15 to 20 minutes after that she developed increased temperature some hypoxia and shaking. Lactate was also elevated initially. There was concern that this was developing sepsis. Hospitalist was contacted blood pressure started trending down towards the end of the ED stay. Patient complains of dysuria and urinary frequency. She was up most of the night last night urinating. 02/22 Poor sleep is she has occasionally difficulty sleeping anyway. Otherwise no complaints of feeling little better. Review of Systems: denies headache/fever/chills/nausea/vomiting/chest or abdominal pain/cough/dyspnea/diarrhea. Otherwise see above. - Constitutional Vitals: Vital Signs Temp Pulse Resp BP Pulse Ox 97.6 F 60 16 133/61 95 02/22/19 04:00 02/22/19 04:00 02/22/19 04:00 02/22/19 04:00 02/21/19 23:14 Period Temp Pulse Resp BP Sys/Crane Pulse Ox Last 24 Hr 97.6 F-101 F 55-120 16-25 78-163/54-116 83-100 Intake and Output 02/21/19 02/22/19 02/22/19 21:59 05:59 13:59 Intake Total 1240 240 Output Total 200 780 125 Balance 1040 -540 -125 Weight 94.982 kg Intake & Output: Intake & Output 02/21/19 02/22/19 02/22/19 21:59 05:59 13:59 Intake Total 1240 240 Output Total 200 780 125 Balance 1040 -540 -125 Weight 94.982 kg Intake: IV 1000 Sodium Chloride 0.9% 1,000 ml @ 1000 Wide Open IV BOLUS ONE Rx#: [id number] Oral 240 240 Output: Void Amount 200 780 125 Other: Urine Appearance Clear Clear Urine Color Light Rabia Light Rabia Urine Odor Normal Normal Exam: General: Alert, Awake, No acute Distress, obese Eyes/N/T: EOMI, Head/Neck: neck supple, CV: RRR, No murmurs, Pulm: Clear b/l, no wheezing/rhonchi/rales Abd: soft, nontender, +BS x4 Ext: no clubbing/cyanosis/edema Neuro: Alert, no focal deficits, moves all extremities, Skin: warm/dry Medical - PN: Obj Da - Labs CBC & Chem 7: 02/22/19 04:35 02/22/19 04:35 Labs: Abnormal Lab Results 02/22/19 02/22/19 02/21/19 04:35 04:35 08:23 WBC 16.6 H RDW 14.7 H Plt Count 105 L Gran % 93.4 H Lymph % (Auto) 4.9 L [place] % (Auto) Gran # 15.5 H Lymph # (Auto) 0.8 L [place] # (Auto) VBG Lactic Acid 2.4 H Carbon Dioxide 21 L Creatinine 1.2 H Glucose 167 H Calcium 8.5 L Phosphorus 2.3 L Magnesium 1.5 L Total Bilirubin GGT 181 H AST 49 H Lactate Dehydrogenase 271 H C-Reactive Protein Urine Protein Urine Ketones Urine Occult Blood Ur Leukocyte Esterase Urine RBC Urine WBC Urine Bacteria 02/21/19 02/21/19 02/21/19 08:23 08:23 08:14 WBC RDW Plt Count 121 L Gran % 94.1 H Lymph % (Auto) 4.8 L [place] % (Auto) 0.4 L Gran # 9.8 H Lymph # (Auto) 0.5 L [place] # (Auto) 0 L VBG Lactic Acid Carbon Dioxide Creatinine Glucose 140 H Calcium Phosphorus Magnesium Total Bilirubin 1.1 H GGT AST Lactate Dehydrogenase C-Reactive Protein 7.2 H Urine Protein 100 A Urine Ketones 5/tr A Urine Occult Blood >=1.0 A Ur Leukocyte Esterase 500 A Urine RBC 110 H Urine WBC > 182 H Urine Bacteria Few A Meds: Medications Acetaminophen (Tylenol) 650 mg PO Q6HP PRN PRN Reason: PAIN/FEVER > 101 Albuterol Sulfate (Ventolin) 2.5 mg NEB Q2HP PRN PRN Reason: Shortness Of Breath Bisacodyl (Dulcolax) 10 mg [place] Q2-3DAYS PRN PRN Reason: Constipation Ceftriaxone Sodium (Rocephin) 1 gm IV Q24H [facility] Last Admin: 02/21/19 19:07 Dose: 1 gm Documented by: Enoxaparin Sodium (Lovenox) 40 mg SQ DAILY [facility] Famotidine (Pepcid) 20 mg PO BID [facility] Last Admin: 02/21/19 21:10 Dose: 20 mg Documented by: Ondansetron HCl (Zofran) 4 mg IV Q6HP PRN PRN Reason: Nausea And Vomiting Promethazine HCl (Phenergan) 12.5 mg IV Q6HP PRN PRN Reason: Nausea And Vomiting Sodium Chloride (Saline Flush) 10 ml IV Q8 [facility] Last Admin: 02/22/19 06:21 Dose: Not Given Documented by: Medical - PN: A/P - Time Spent With Patient Total time spent is greater than 50% in coordination of care (as documented) at patient's floor/unit and/or counseling patient: - Narrative A/P Narrative: A: *UTI: *SIRS: leukocytosis from steroid effect *Possible Allergic Rxn to Levaquin *lactic acidosis: improved *CKD III: Follows with nephrology *HTN: *GERD: *Gout: Follows with Dr. Calixto -On prednisone 5mg daily and Uloric *Immunosuppressed: see above *Asthma: *Hypo-mag: *Obese P: -Rocephin, pending UC/BC -mag replace -?is on home ARB, -clarify home meds -home IH's, prn neb -Continue home prednisone -ppx: Lovenox/home PPI DNR Medical - PN: Qual - VTE Deep Vein Thrombosis/Pulmonary Embolism Present on Admission: No
[2019-02-22] MEDS ORDERED: MAGNESIUM SULFATE 8.12 MEQ in DEXTROSE 5% IN WATER 50 ML IV ONE (08:09)
[2019-02-22] MEDS ORDERED: FLUTICASONE/SALMETEROL 250/50 INHALER #14 INH SCH (09:00)
[2019-02-22] MEDS: cefTRIAXone 1 GM VIAL IV SCH (09:45)
[2019-02-22] MEDS: ACETAMINOPHEN 500 MG TABLET PO SCH ×3 (09:45→20:17)
[2019-02-22] MEDS: FAMOTIDINE 20 MG TABLET PO SCH ×2 (09:46→20:18)
[2019-02-22] MEDS: SPIRONOLACTONE 25 MG TABLET PO SCH (09:46)
[2019-02-22] MEDS: ENOXAPARIN 40 MG/0.4 ML SYRINGE SQ SCH (09:46)
[2019-02-22] MEDS: ESTROGENS ESTERIFIED PO SCH (10:17)
[2019-02-22] MEDS: Febuxostat [Uloric] 80 mg Tab PO SCH (10:19)
[2019-02-22] MEDS: FLUTICASONE/SALMETEROL 250/50 INHALER #14 INH SCH ×3 (10:19→20:23)
[2019-02-22] MEDS: predniSONE 5 MG TABLET PO SCH (10:19)
[2019-02-22] MEDS: OLMESARTAN MEDOXOMIL 20 MG TABLET PO SCH (10:20)
[2019-02-22] MEDS ORDERED: MELATONIN 3 MG TABLET PO SCH (21:00)
[2019-02-23] MEDS: 0.9 % SODIUM CHLORIDE 10 ML SYRINGE IV SCH (05:10)
[2019-02-23 05:58] LABS: Basophils # (Auto) 0 K/mcL (0.0-0.3); Basophils % (Auto) 0 % (0.0-2.0); Eosinophils # (Auto) 0 K/mcL (0.0-0.7); Eosinophils % (Auto) 0.2 % (0.0-7.0); Granulocytes % (Auto) 84.3 % (38.0-78.0); Hematocrit 37.7 % (36.0-48.0); Hemoglobin 12.5 g/dL (12.0-15.0); Lymphocytes # (Auto) 1.1 K/mcL (1.5-4.8); Lymphocytes % (Auto) 8.9 % (15.5-49.0); Mean Corpuscular HGB Conc 33.1 g/dL (31.0-36.0); Monocytes # (Auto) 0.8 K/mcL (0.1-0.9); Monocytes % (Auto) 6.6 % (1.0-12.0); Platelet Count 119 K/mcL (140-440); RBC 4.05 M/mcL (4.00-5.20); Red Cell Distribution Width 14.9 % (11.5-14.5); WBC 12.6 K/mcL (4.5-11.0)
[2019-02-23 06:34] LABS: ALT/SGPT 34 U/l (0-40); AST/SGOT 53 U/l (0-37); Albumin 3.4 gm/dL (3.2-5.2); Albumin/Globulin Ratio 1.2 (1.0-2.3); Alkaline Phosphatase 55 U/L (39-117); Bilirubin,Direct < 0.2 mg/dL (0.0-0.3); Bilirubin,Total 0.4 mg/dL (0.0-1.0); Blood Urea Nitrogen 27 mg/dl (8-23); Calcium 8.6 mg/dl (8.6-10.4); Carbon Dioxide 26 mmol/L (22-30); Chloride 102 mmol/L (96-108); Globulin 2.8 gm/dL (2.2-3.7); Glomerular Filtration Rate 41; Glucose 105 mg/dL (70-105); Lactate Dehydrogenase 267 U/L (94-250); Phosphorous 2.4 mg/dL (2.7-4.5); Triglycerides 101 mg/dl (<150); Uric Acid 4.7 mg/dL (2.5-8.0)
--- NOTE | 2019-02-23 08:18 | Discharge Summary ---
Medical - DS: Prov Patient information: Note initiated : 02/23/19 at 8:15 am Service Date, if different from initiated Date: [] Patient: Idalia Holloway 83 y/o F admitted on 02/21/19 for Urinary Frequency Since Friday. Chief Complaint: [] Date of admission: 02/21/19 16:31 Discharge date: 02/23/19 Primary care physician: Yohana Feliciano Consults: 02/21/19 Consult to Physician [CONS] Stat Comment: Consulting Provider: Mekhi Lagos Reason For Exam: Physician to Consult Medical - DS: Meds - Discharge Medications Prescriptions: Cephalexin [Keflex] 500 mg PO BID #6 cap Active and Home Medications: Home Medications omeprazole 20 mg capsule,delayed release 20 mg PO QDAY cap 03/09/15 [History Confirmed 02/21/19 Last Taken Unknown] spironolactone 25 mg tablet 25 mg PO QDAY tab 03/09/15 [History Confirmed 02/21/19 Last Taken 02/21/19 25 mg] Cholesterol Formula See Dose Instructions PO BID 03/31/15 [History Confirmed 01/15/19 Last Taken 02/21/19 4 Capsules] Flexcin See Dose Instructions PO DAILY 03/31/15 [History Confirmed 01/15/19 Last Taken 02/21/19 2 Capsules] black branch See Dose Instructions PO 03/31/15 [History Confirmed 01/15/19 Last Taken 02/21/19 4] lactobacillus combination no.8 1 PO DAILY 03/31/15 [History Confirmed 01/15/19 Last Taken 02/21/19] Lou-C tablet 1 PO DAILY 08/13/17 [History Confirmed 01/15/19 Last Taken 02/21/19 1] calcium mag d3 See Rx Instructions PO DAILY 08/13/17 [History Confirmed 02/21/19 Last Taken 02/21/19 2 Tabs] clobetasol 0.05 % scalp solution 1 applic TOPICAL ONCE PRN 08/13/17 [History Confirmed 02/21/19 Last Taken Unknown] esterified estrogens 0.625 mg tablet 1 mg PO QDAY tab 08/13/17 [History Confirmed 02/21/19 Last Taken 02/21/19 1 mg] fluticasone 250 mcg-salmeterol 50 mcg/dose blistr powdr for inhalation 1 inh INHALATION DAILY 08/13/17 [History Confirmed 02/21/19 Last Taken 02/21/19 1 Puff] garlic lecthin PO BID 08/13/17 [History Confirmed 01/15/19 Last Taken 02/21/19 4 capsules] acetaminophen 500 mg capsule 1,000 mg PO TID cap 01/09/18 [History Confirmed 02/21/19 Last Taken 02/21/19 1000] sennosides 8.6 mg tablet 25.8 mg PO QDAY tab 01/09/18 [History Confirmed 02/21/19 Last Taken 02/21/19 4 Tabs] prednisone 5 mg tablet 5 mg PO QDAY #90 tab 01/08/19 [Rx Confirmed 02/21/19 Last Taken Unknown] Benicar 20 mg PO DAILY 02/21/19 [History Confirmed 02/21/19 Last Taken 02/21/19 20 mg] Gray-3 Fish Oil 1,000 mg Sfgl 1,000 mg PO BID 02/21/19 [History Confirmed 02/21/19 Last Taken Unknown] One Daily Womens 50 Plus Tab 1 tab PO DAILY 02/21/19 [History Confirmed 02/21/19 Last Taken 02/21/19 1 Tab] Vitamin D3 800 mg PO DAILY 02/21/19 [History Confirmed 02/21/19 Last Taken 02/21/19 800 mg] febuxostat 80 mg tablet 80 mg PO QDAY #90 tab 02/22/19 [Rx Last Taken Unknown] Medical - DS: Hosp Hospital Course: Ms. Holloway is a 83 year old F Patient presents to the ED with urinary frequency dysuria generalized malaise and chills. Take her morning medication this morning and had episode of nausea and vomiting. In the ED she was evaluated and found to have urinary tract infection. He was given a dose of Levaquin. 15 to 20 minutes after that she developed increased temperature some hypoxia and shaking. Lactate was also elevated initially. There was concern that this was developing sepsis. Hospitalist was contacted blood pressure started trending down towards the end of the ED stay. Patient complains of dysuria and urinary frequency. She was up most of the night last night urinating. 02/22 Poor sleep is she has occasionally difficulty sleeping anyway. Otherwise no complaints of feeling little better. 02/23 Well. No new complaints. Urine culture growing E. coli. She grew E. coli out in July as well that was pansensitive. Patient stable for discharge Discharge diagnosis: UTI Sirs possible allergic reaction Levaquin lactic acidosis chronic kidney Secondary discharge diagnosis: GERD gout immunosuppression with prednisone asthma obesity - Time Spent with Patient Total time spent providing and/or coordinating discharge services: Greater than 30 minutes Medical - DS: Exam - Constitutional Vitals: Vital Signs Temp Pulse Resp BP Pulse Ox 02/23/19 08:00 97.4 F 56 L 18 136/65 94 02/23/19 03:07 97.1 F 58 L 20 159/73 97 02/22/19 23:27 97.5 F 62 18 139/76 95 02/22/19 20:00 66 16 94 02/22/19 19:02 97.3 F 66 16 129/73 94 02/22/19 16:00 97.7 F 58 L 18 115/62 94 02/22/19 12:00 98.0 F 64 18 141/64 93 Intake and Output 02/22/19 02/23/19 02/23/19 21:59 05:59 13:59 Intake Total 1000 350 Output Total 251 875 101 Balance 749 -525 -101 Intake: Oral 1000 350 Output: Void Amount 250 875 100 # of times incontinent of urine 1 1 Other: Meal Lunch Percent of Meal Consumed 100% Feeding Ability Assist with Tray Set Up Urine Appearance Clear Clear Urine Color Dark Yellow Dark Yellow Urine Odor Normal Normal # Voids 2 1 Weight 94.982 kg 94.665 kg Medical - DS: Data Labs on day of discharge: Labs from last 24 hours 02/23/19 02/23/19 04:27 04:27 WBC 12.6 H RBC 4.05 Hgb 12.5 Hct 37.7 MCV 93.0 MCH 30.8 MCHC 33.1 RDW 14.9 H Plt Count 119 L MPV 8.0 Gran % 84.3 H Lymph % (Auto) 8.9 L [place] % (Auto) 6.6 Eos % (Auto) 0.2 Baso % (Auto) 0 Gran # 10.7 H Lymph # (Auto) 1.1 L [place] # (Auto) 0.8 Eos # (Auto) 0 Baso # (Auto) 0 Sodium 139 Potassium 4.2 Chloride 102 Carbon Dioxide 26 Anion Gap 11.0 BUN 27 H Creatinine 1.2 H GFR Calculation 41 Glucose 105 Uric Acid 4.7 Calcium 8.6 Phosphorus 2.4 L Magnesium 2.0 Total Bilirubin 0.4 Direct Bilirubin < 0.2 GGT 190 H AST 53 H ALT 34 Alkaline Phosphatase 55 Lactate Dehydrogenase 267 H Total Protein 6.2 Albumin 3.4 Globulin 2.8 Albumin/Globulin Ratio 1.2 Triglycerides 101 Preliminary micro results at discharge 02/21/19 20:30 Blood Culture - Preliminary Blood 02/21/19 18:20 Blood Culture - Preliminary Blood 02/21/19 08:14 Urine Culture - Preliminary Urine - Catheterized Escherichia coli Medical - DS: A/P - Patient/Caregiver Discharge Instructions Activity: increase activity as tolerated Diet: Regular Diet Prescriptions: Cephalexin [Keflex] 500 mg PO BID #6 cap - Follow up Plan Follow up with: Yohana Feliciano MD [Primary Care Provider] - Disposition: Home, Self-Care Prognosis: Good Rehab Potential: Good Overall status at discharge: patient is back to baseline Medical - DS: Qual - VTE Deep Vein Thrombosis/Pulmonary Embolism Present on Admission: No
[2019-02-23] MEDS: ACETAMINOPHEN 500 MG TABLET PO SCH (08:21)
[2019-02-23] MEDS: OLMESARTAN MEDOXOMIL 20 MG TABLET PO SCH (08:22)
[2019-02-23] MEDS: Febuxostat [Uloric] 80 mg Tab PO SCH (08:22)
[2019-02-23] MEDS: ESTROGENS ESTERIFIED PO SCH (08:23)
[2019-02-23] MEDS: SPIRONOLACTONE 25 MG TABLET PO SCH (08:24)
[2019-02-23] MEDS: FAMOTIDINE 20 MG TABLET PO SCH (08:24)
[2019-02-23] MEDS: predniSONE 5 MG TABLET PO SCH (08:24)
[2019-02-23] MEDS: ENOXAPARIN 40 MG/0.4 ML SYRINGE SQ SCH (08:26)
[2019-02-23] MEDS: FLUTICASONE/SALMETEROL 250/50 INHALER #14 INH SCH (08:38)
[2019-02-23] MEDS ORDERED: cefTRIAXone 1 GM VIAL IM SCH ×2 (08:54→09:15)
== END 2019-02-23 13:05 | disposition home or self-care (01) | DRG 690 ==
LOC: ED 07:50 → MEDSUR 16:20
PROVIDERS: ADMIT Internal Medicine; ATTEND Internal Medicine

== ENCOUNTER 2019-06-28 17:56 | Inpatient (IN) ==
[2019-06-28] MEDS ORDERED: ATROPINE SULFATE 1 MG/10 ML SYRINGE IV ONE (18:51)
[2019-06-28] MEDS ORDERED: 0.9 % SODIUM CHLORIDE 1,000 ML IV ONE (18:52)
--- NOTE | 2019-06-28 19:15 | Emergency Department Note ---
General Adult HPI - General Chief complaint: Arrhythmia/Palpitations Stated complaint: Decreased Heart Rate Time Seen by Provider: 06/28/19 18:04 Source: patient, EMS Mode of arrival: ambulatory Limitations: no limitations - History of Present Illness HPI Narrative: This pleasant 83-year-old female is here with her daughter, Carolyn, who lives with her. New onset right hip discomfort. She is always a little bit unsteady. It feels like she pulled it or it is going to give out and this happened about 2 hours prior to coming here. This occurs with walking. There is no dizziness. EMS was summoned and helped to get her in the car and then helped her get out of the car and into the emergency room. She also has a yeast infection that is being treated that is quite sore that even was so severe that there was bleeding. Was seen for this yesterday. 5 days ago was also seen here due to weeping fluid and fluid overload/edema above her compression hose that was weeping downward. She does drink water regularly sometimes or often 316 o unces per day. Is on furosemide since 5 days ago. Also takes salmeterol/fluticasone for asthma. Is on omeprazole for GERD. Is on olmesartan for blood pressure. Takes prednisone 5 mg once daily. Takes estradiol 1 mg daily. REVIEW OF SYSTEMS: Has poor appetite. No fevers, chills, sweats. No chest pain or palpitations No cough or shortness of breath Has had some mild nausea. No vomiting No dysuria or frequency urgency Has generally felt weak. No dizziness No anxiety but has some depression partially related or mostly related to her inabilities to do things she used to be able to do. Has an ecchymosis or bruise on the left flank area that she is uncertain how she got it. No falls. - Related Data Home Medications Medication Instructions Recorded Confirmed omeprazole 20 mg capsule,delayed 20 mg PO QDAY cap 03/09/15 06/28/19 release spironolactone 25 mg tablet 25 mg PO QDAY tab 03/09/15 06/28/19 Cholesterol Formula See Dose Instructions PO BID 03/31/15 05/21/19 Flexcin See Dose Instructions PO DAILY 03/31/15 05/21/19 lactobacillus combination no.8 1 PO DAILY 03/31/15 05/21/19 Lou-C tablet 1 PO DAILY 08/13/17 05/21/19 calcium mag d3 See Rx Instructions PO DAILY 08/13/17 05/21/19 clobetasol 0.05 % scalp solution 1 applic TOPICAL ONCE PRN 08/13/17 05/21/19 esterified estrogens 0.625 mg 1 mg PO QDAY tab 08/13/17 05/21/19 tablet garlic lecthin PO BID 08/13/17 05/21/19 acetaminophen 500 mg capsule 1,000 mg PO TID cap 01/09/18 05/21/19 sennosides 8.6 mg tablet 25.8 mg PO QDAY tab 01/09/18 05/21/19 Benicar 20 mg PO DAILY 02/21/19 05/21/19 Leland-3 Fish Oil 1,000 mg Sfgl 1,000 mg PO BID 02/21/19 05/21/19 One Daily Womens 50 Plus Tab 1 tab PO DAILY 02/21/19 05/21/19 cholecalciferol (vitamin D3) 400 800 unit PO QDAY cap 05/21/19 unit capsule estradiol 1 mg tablet 1 mg PO QDAY tab 05/21/19 06/28/19 fluticasone 250 mcg-salmeterol 50 1 inh INHALATION BID 05/21/19 06/28/19 mcg/dose blistr powdr for inhalation furosemide 20 mg tablet 20 mg PO QDAY tab 05/21/19 06/28/19 ketoconazole 2 % topical cream 1 applic TOPICAL QDAY 05/21/19 05/21/19 Previous Rx's Medication Instructions Recorded prednisone 5 mg tablet See Rx Instructions .ROUTE 04/05/19 .COMPLEX #90 tablet Uloric 80 mg tablet See Rx Instructions .ROUTE 05/03/19 .COMPLEX #30 tablet NS Fluconazole [Diflucan] 100 mg PO DAILY #5 tab 06/27/19 Allergies Allergy/AdvReac Type Severity Reaction Status Date / Time MONTY Inhibitors Allergy Severe Unknown Verified 06/23/19 16:37 albuterol Allergy Severe Unknown Verified 06/23/19 16:37 [facility] allopurinol Allergy Severe Unknown Verified 06/23/19 16:37 ARB-Angiotensin Receptor Allergy Severe Unknown Verified 06/23/19 16:37 Antagonist aspirin Allergy Severe Unknown Verified 06/23/19 16:37 Beta-Blockers Allergy Severe Unknown Verified 06/23/19 16:37 (Beta-Adrenergic Bloc Calcium Channel Blocking Allergy Severe Unknown Verified 06/23/19 16:37 Agents-Chetan Carbetapentane Allergy Severe Unknown Verified 06/23/19 16:37 [From Carba-XP] clonidine Allergy Severe Unknown Verified 06/23/19 16:37 colchicine Allergy Severe Unknown Verified 06/23/19 16:37 doxycycline Allergy Severe Unknown Verified 06/23/19 16:37 epoxy resin Allergy Severe Unknown Verified 06/23/19 16:37 formaldehyde Allergy Severe Unknown Verified 06/23/19 16:37 guaifenesin [From Carba-XP] Allergy Severe Unknown Verified 06/23/19 16:37 hydrochlorothiazide Allergy Severe Unknown Verified 06/23/19 16:37 [From Maxzide] iodine Allergy Severe Unknown Verified 06/23/19 16:37 isradipine [From DynaCirc] Allergy Severe Unknown Verified 06/23/19 16:37 NSAIDS (Non-Steroidal Allergy Severe Unknown Verified 06/23/19 16:37 Anti-Inflamma Opioids - Morphine Analogues Allergy Severe Unknown Verified 06/23/19 16:37 Penicillins Allergy Severe Unknown Verified 06/23/19 16:37 piroxicam [From Feldene] Allergy Severe Unknown Verified 06/23/19 16:37 potassium Allergy Severe Unknown Verified 06/23/19 16:37 Proton Pump Inhibitors Allergy Severe Unknown Verified 06/23/19 16:37 salmeterol [From Serevent] Allergy Severe Unknown Verified 06/23/19 16:37 Terazosin [From Hytrin] Allergy Severe Unknown Verified 06/23/19 16:37 theophylline Allergy Severe Unknown Verified 06/23/19 16:37 Triamterene [From Maxzide] Allergy Severe Unknown Verified 06/23/19 16:37 acetaminophen [From Vicodin] Allergy Intermediate Unknown Verified 06/23/19 16:37 methocarbamol Allergy Intermediate Unknown Verified 06/23/19 16:37 cetirizine [From Zyrtec] Allergy Mild Unknown Verified 06/23/19 16:37 doxazosin [From Cardura] Allergy Mild Unknown Verified 06/23/19 16:37 Pvssbtt-Tnp-Qsg Reductase Allergy Unknown Unknown Verified 06/23/19 16:37 Inhibitor Past Medical History - Past Medical History Medical history: Reports: arthritis, asthma, GERD, hypertension, renal disease, other (gout) Surgical history ED: Reports: appendectomy, hysterectomy, tonsillectomy - Social History smoking status: Never smoker Alcohol use: Reports: None Drug use: Reports: none Physical Exam Limitations: no limitations General appearance: alert, in no apparent distress Head: atraumatic, normocephalic Eye: Present: PERRL, EOMI Neck: Present: trachea midline. Absent: lymphadenopathy, thyromegaly Chest: Present: symmetric chest wall rise Respiratory: Present: normal lung sounds bilaterally. Absent: respiratory distress, wheezes, stridor, accessory muscle use, prolonged expiratory phase Cardiovascular: Present: regular rate, bradycardia. Absent: systolic murmur, diastolic murmur Abdominal: Present: soft. Absent: distention, tenderness, guarding, rebound, rigidity, organomegaly, mass Extremities: Present: pretibial edema, other (On the right anterior tibial region is a trapezoidal appearing skin defect superficial with moist yellow- white base. There is no surrounding significant erythema.). Absent: calf tenderness (Trace bilaterally.) Back: Absent: CVA tenderness (R), CVA tenderness (L) Neurological: Present: alert, oriented X3 Psychiatric: Present: anxious (Later became a little bit tremulous and agitated.), flat affect. Absent: agitated Skin: Present: cool, dry Course Vital Signs Pulse Rate 55 L 06/28/19 18:00 Respiratory Rate 18 06/28/19 18:00 Blood Pressure 127/105 06/28/19 18:00 Pulse Oximetry (%) 98 06/28/19 18:00 Pulse Rate 63 06/28/19 23:47 Respiratory Rate 16 06/28/19 23:47 Blood Pressure 111/53 06/28/19 23:47 Pulse Oximetry (%) 100 06/28/19 23:47 Medical Decision Making - [facility] Narrative Medical decision making narrative: 6:05 PM - patient interviewed and examined. Progressive weakness with left hip pain. Will do imaging and multiple labs. Labs demonstrate elevated BUN of over 100 with creatinine 2.3 and potassium 7.3. 5 units of insulin and 1 amp of D50 ordered. Repeat Chem-8 ordered as well. Repeat Chem-8 demonstrates some her BUN at 102, creatinine down to 2.0, potassium down to 6.5. BNP 2096 (no prior for comparison). 9:01 PM - asked by nursing staff to reevaluate this patient due to shaky/agitation and not seeming to be doing all that well on exam she has some red eyes from crying. She reports that they blood pressure cuff on her right upper extremity was uncomfortable and cutting into her and was moved to her right forearm and this seems to improve but she seems still somewhat shaky and emotional. She was nauseated but not now. She has a little bit of a crackle in the right base. Will do chest x-ray and add troponin. Chest x-ray without specific infiltrate, pleural fluid, or CHF. Troponin 0.04. 10:28 PM approximately - I spoke with Dr. Jane, who is willing to accept this patient for acute renal failure, hyperkalemia, etc. He request that I speak with private mortgage banker safe, Dr. Spencer, regarding management of patient's fluids, potassium, renal function with the uremic BUN of 103, etc. 10:35 PM approximately - I spoke with Dr. Spencer. He reviews the information given and recommends going ahead with bicarbonate 3 amps in 1 L of D5 at 100 cc/h. He asked for Kayexalate 30 g. Labs to be repeated at 4 AM. No spironolactone (pt was also on this), of course, because of the hyperkalemia. Not necessary at this point to use albuterol or furosemide. 10:40 PM approximately - second troponin was requested by Dr. Jane and is to be drawn in 20 minutes. 12:26 AM - repeat troponin is 0.05, minimal change from 0.04. 12:27 AM - chest x-ray preliminary read from [facility] is unremarkable. 12:45 AM approximately - repeat troponin comes back 0.05. This was communicated to hospitalist who requests that there be a consultation with cardiology for consideration of transfer versus reassurance. 1:31 AM - I spoke with Dr. rAenas, breaker hand, [facility], who believes that the change from 0.04-0.05 the creatinine of 2.3 with prerenal azotemia is insignificant, does not represent myocardial damage and can be safely monitored. - Lab Data Lab results reviewed: Yes I reviewed the patient's lab results. Result diagrams: 06/28/19 19:28 06/28/19 19:28 Lab Results 06/28/19 06/28/19 06/28/19 Range/Units 19:28 19:28 19:28 WBC 14.2 H (4.50-11.00) K/mcL RBC 4.45 (3.59-5.38) M/mcL Hgb 13.2 (11.2-15.7) g/dL Hct 40.4 (34.1-44.9) % POC Hct (36.0-48.0) % MCV 90.8 (80.0-100.0) fL MCH 29.7 (26.0-34.0) pg MCHC 32.7 (31.0-36.0) g/dL RDW 15.2 H (11.5-14.5) % Plt Count 173 (140-440) K/mcL MPV 11.1 H (7.4-10.4) fL Gran % 81.8 H (38.0-78.0) % Lymph % (Auto) 11.3 L (15.5-49.0) % [place] % (Auto) 6.6 (1.0-12.0) % Eos % (Auto) 0.1 (0.0-7.0) % Baso % (Auto) 0.2 (0.0-2.0) % Gran # 11.57 H (1.80-8.00) K/mcL Lymph # (Auto) 1.60 (1.50-4.80) K/mcL [place] # (Auto) 0.94 H (0.10-0.90) K/mcL Eos # (Auto) 0.01 (0.00-0.70) K/mcL Baso # (Auto) 0.03 (0.00-0.30) K/mcL POC Sodium (133-145) mmol/L Sodium 129 L (133-145) mmol/L POC Potassium (3.3-5.1) mmol/L Potassium 7.3 H* (3.3-5.1) mmol/L POC Chloride (96-108) mmol/L Chloride 99 (96-108) mmol/L Carbon Dioxide 15 L (22-30) mmol/L POC Total CO2 (22-30) mmol/L Anion Gap 15.0 (8-16) POC BUN (8-23) mg/dl BUN 103 H* (8-23) mg/dl Creatinine 2.3 H (0.6-1.1) mg/dl POC Creatinine (0.6-1.1) mg/dl GFR Calculation 19 Glucose 157 H (70-105) mg/dL POC Glucose (70-105) mg/dL Calcium 9.6 (8.6-10.4) mg/dl POC WB Ioniz Calcium (1.16-1.32) mmol/L Total Bilirubin 0.3 (0.0-1.0) mg/dL AST 61 H (0-37) U/l ALT 51 H (0-40) U/l Alkaline Phosphatase 46 (39-117) U/L Troponin T (0-0.03) ng/ml C-Reactive Protein 2.6 H (0.0-0.8) mg/dl NT-Pro-B Natriuret Pep 2096.0 H (0-450) pg/ml Total Protein 7.5 (5.9-8.4) gm/dL Albumin 4.3 (3.2-5.2) gm/dL Globulin 3.2 (2.2-3.7) gm/dL Albumin/Globulin Ratio 1.3 (1.0-2.3) TSH 4.14 (0.27-5.01) uIU/ml Urine Color Urine Appearance Urine pH (5.0-9.0) Ur Specific [place] (1.000-1.035) Urine Protein (NEG) mg/dL Urine Glucose (UA) (NEG) mg/dL Urine Ketones (NEG) mg/dL Urine Occult Blood (<0.03) mg/dL Urine Nitrate (NEG) Urine Bilirubin (NEG) mg/dL Urine Urobilinogen (NEG) mg/dL Ur Leukocyte Esterase (NEG) /uL Urine RBC (0-1) /hpf Urine WBC (0-4) /hpf Ur Squamous Epith Cells (0-4) /hpf Urine Bacteria (0) /hpf Urine Mucus (0) /hpf Ur Culture Indicated? 06/28/19 06/28/19 06/28/19 Range/Units 19:28 21:00 21:34 WBC (4.50-11.00) K/mcL RBC (3.59-5.38) M/mcL Hgb (11.2-15.7) g/dL Hct (34.1-44.9) % POC Hct 34.0 L (36.0-48.0) % MCV (80.0-100.0) fL MCH (26.0-34.0) pg MCHC (31.0-36.0) g/dL RDW (11.5-14.5) % Plt Count (140-440) K/mcL MPV (7.4-10.4) fL Gran % (38.0-78.0) % Lymph % (Auto) (15.5-49.0) % [place] % (Auto) (1.0-12.0) % Eos % (Auto) (0.0-7.0) % Baso % (Auto) (0.0-2.0) % Gran # (1.80-8.00) K/mcL Lymph # (Auto) (1.50-4.80) K/mcL [place] # (Auto) (0.10-0.90) K/mcL Eos # (Auto) (0.00-0.70) K/mcL Baso # (Auto) (0.00-0.30) K/mcL POC Sodium 134 (133-145) mmol/L Sodium (133-145) mmol/L POC Potassium 6.5 H* (3.3-5.1) mmol/L Potassium (3.3-5.1) mmol/L POC Chloride 111 H (96-108) mmol/L Chloride (96-108) mmol/L Carbon Dioxide (22-30) mmol/L POC Total CO2 17 L (22-30) mmol/L Anion Gap (8-16) POC BUN 102 H* (8-23) mg/dl BUN (8-23) mg/dl Creatinine (0.6-1.1) mg/dl POC Creatinine 2.0 H (0.6-1.1) mg/dl GFR Calculation Glucose (70-105) mg/dL POC Glucose 128 H (70-105) mg/dL Calcium (8.6-10.4) mg/dl POC WB Ioniz Calcium 1.12 L (1.16-1.32) mmol/L Total Bilirubin (0.0-1.0) mg/dL AST (0-37) U/l ALT (0-40) U/l Alkaline Phosphatase (39-117) U/L Troponin T 0.04 H* (0-0.03) ng/ml C-Reactive Protein (0.0-0.8) mg/dl NT-Pro-B Natriuret Pep (0-450) pg/ml Total Protein (5.9-8.4) gm/dL Albumin (3.2-5.2) gm/dL Globulin (2.2-3.7) gm/dL Albumin/Globulin Ratio (1.0-2.3) TSH (0.27-5.01) uIU/ml Urine Color Yellow Urine Appearance Hazy Urine pH 5.0 (5.0-9.0) Ur Specific [place] 1.013 (1.000-1.035) Urine Protein Neg (NEG) mg/dL Urine Glucose (UA) Negative (NEG) mg/dL Urine Ketones Neg (NEG) mg/dL Urine Occult Blood Neg (<0.03) mg/dL Urine Nitrate Neg (NEG) Urine Bilirubin Neg (NEG) mg/dL Urine Urobilinogen Neg (NEG) mg/dL Ur Leukocyte Esterase 25 A (NEG) /uL Urine RBC < 1 (0-1) /hpf Urine WBC 5 H (0-4) /hpf Ur Squamous Epith Cells 16 H (0-4) /hpf Urine Bacteria Mod A (0) /hpf Urine Mucus Few (0) /hpf Ur Culture Indicated? No 06/28/19 Range/Units 23:00 WBC (4.50-11.00) K/mcL RBC (3.59-5.38) M/mcL Hgb (11.2-15.7) g/dL Hct (34.1-44.9) % POC Hct (36.0-48.0) % MCV (80.0-100.0) fL MCH (26.0-34.0) pg MCHC (31.0-36.0) g/dL RDW (11.5-14.5) % Plt Count (140-440) K/mcL MPV (7.4-10.4) fL Gran % (38.0-78.0) % Lymph % (Auto) (15.5-49.0) % [place] % (Auto) (1.0-12.0) % Eos % (Auto) (0.0-7.0) % Baso % (Auto) (0.0-2.0) % Gran # (1.80-8.00) K/mcL Lymph # (Auto) (1.50-4.80) K/mcL [place] # (Auto) (0.10-0.90) K/mcL Eos # (Auto) (0.00-0.70) K/mcL Baso # (Auto) (0.00-0.30) K/mcL POC Sodium (133-145) mmol/L Sodium (133-145) mmol/L POC Potassium (3.3-5.1) mmol/L Potassium (3.3-5.1) mmol/L POC Chloride (96-108) mmol/L Chloride (96-108) mmol/L Carbon Dioxide (22-30) mmol/L POC Total CO2 (22-30) mmol/L Anion Gap (8-16) POC BUN (8-23) mg/dl BUN (8-23) mg/dl Creatinine (0.6-1.1) mg/dl POC Creatinine (0.6-1.1) mg/dl GFR Calculation Glucose (70-105) mg/dL POC Glucose (70-105) mg/dL Calcium (8.6-10.4) mg/dl POC WB Ioniz Calcium (1.16-1.32) mmol/L Total Bilirubin (0.0-1.0) mg/dL AST (0-37) U/l ALT (0-40) U/l Alkaline Phosphatase (39-117) U/L Troponin T 0.05 H* (0-0.03) ng/ml C-Reactive Protein (0.0-0.8) mg/dl NT-Pro-B Natriuret Pep (0-450) pg/ml Total Protein (5.9-8.4) gm/dL Albumin (3.2-5.2) gm/dL Globulin (2.2-3.7) gm/dL Albumin/Globulin Ratio (1.0-2.3) TSH (0.27-5.01) uIU/ml Urine Color Urine Appearance Urine pH (5.0-9.0) Ur Specific [place] (1.000-1.035) Urine Protein (NEG) mg/dL Urine Glucose (UA) (NEG) mg/dL Urine Ketones (NEG) mg/dL Urine Occult Blood (<0.03) mg/dL Urine Nitrate (NEG) Urine Bilirubin (NEG) mg/dL Urine Urobilinogen (NEG) mg/dL Ur Leukocyte Esterase (NEG) /uL Urine RBC (0-1) /hpf Urine WBC (0-4) /hpf Ur Squamous Epith Cells (0-4) /hpf Urine Bacteria (0) /hpf Urine Mucus (0) /hpf Ur Culture Indicated? - Radiology Data Radiology results reviewed: Yes I reviewed the patient's radiology results. Disposition Pt seen by SNOWBOARDER/PA only: No Clinical Impression: Hyperkalemia, Acute prerenal azotemia, Bradycardia, Hyponatremia Disposition: Xfer As Inpt ([facility]) Condition: Serious Referrals: Yohana Feliciano MD [Primary Care Provider] -
[2019-06-28 20:36] LABS: Basophils # (Auto) 0.03 K/mcL (0.00-0.30); Basophils % (Auto) 0.2 % (0.0-2.0); Eosinophils # (Auto) 0.01 K/mcL (0.00-0.70); Eosinophils % (Auto) 0.1 % (0.0-7.0); Granulocytes % (Auto) 81.8 % (38.0-78.0); Hematocrit 40.4 % (34.1-44.9); Hemoglobin 13.2 g/dL (11.2-15.7); Lymphocytes % (Auto) 11.3 % (15.5-49.0); Mean Cell Volume 90.8 fL (80.0-100.0); Mean Corpuscular HGB Conc 32.7 g/dL (31.0-36.0); Mean Platelet Volume 11.1 fL (7.4-10.4); Monocytes # (Auto) 0.94 K/mcL (0.10-0.90); Monocytes % (Auto) 6.6 % (1.0-12.0); Platelet Count 173 K/mcL (140-440); RBC 4.45 M/mcL (3.59-5.38); Red Cell Distribution Width 15.2 % (11.5-14.5); WBC 14.2 K/mcL (4.50-11.00)
[2019-06-28 21:15] LABS: ALT/SGPT 51 U/l (0-40); AST/SGOT 61 U/l (0-37); Albumin 4.3 gm/dL (3.2-5.2); Albumin/Globulin Ratio 1.3 (1.0-2.3); Alkaline Phosphatase 46 U/L (39-117); Bilirubin,Total 0.3 mg/dL (0.0-1.0); C-Reactive Protein 2.6 mg/dl (0.0-0.8); Calcium 9.6 mg/dl (8.6-10.4); Carbon Dioxide 15 mmol/L (22-30); Chloride 99 mmol/L (96-108); Globulin 3.2 gm/dL (2.2-3.7); Glomerular Filtration Rate 19; Glucose 157 mg/dL (70-105); Thyroid Stimulating Hormone 4.14 uIU/ml (0.27-5.01)
[2019-06-28 21:23] LABS: Blood Urea Nitrogen 103 mg/dl (8-23)
[2019-06-28 21:27] LABS: Appearance,Urine HAZY; Bacteria,Urine MOD /hpf (0); Bilirubin,Urine NEG (NEG); Color,Urine YELLOW; Culture Indicated,Urine NO; Glucose,Urine (UA) NEGATIVE (NEG); Ketones,Urine NEG (NEG); Leukocyte Esterase,Urine 25 /uL (NEG); Mucus,Urine FEW /hpf (0); Nitrate,Urine NEG (NEG); Protein,Urine NEG (NEG); Specific Gravity,Urine 1.013 (1.000-1.035); Urine Blood NEG mg/dL (<0.03); Urine RBC < 1 /hpf (0-1); Urine Squamous Epithelial Cell 16 /hpf (0-4); Urine WBC 5 /hpf (0-4); Urobilinogen,Urine NEG (NEG)
[2019-06-28] MEDS ORDERED: INSULIN REGULAR, HUMAN 1 UNIT/0.01 ML UNIT IV ONE (21:31)
[2019-06-28] MEDS ORDERED: DEXTROSE 50% 50 ML VIAL IV ONE (21:31)
[2019-06-28 21:47] LABS: POC Blood Urea Nitrogen 102 mg/dl (8-23); POC CO2 17 mmol/L (22-30); POC Calcium, Ionized 1.12 mmol/L (1.16-1.32); POC Chloride 111 mmol/L (96-108); POC Glucose, Random 128 mg/dL (70-105); POC Potassium 6.5 mmol/L (3.3-5.1); POC Sodium 134 mmol/L (133-145)
[2019-06-28] MEDS ORDERED: SODIUM POLYSTYRENE SULFONATE 15 GM/60 ML SUSPENSION PO ONE (22:36)
[2019-06-28] MEDS ORDERED: SODIUM BICARBONATE VIAL 150 MEQ in DEXTROSE 5% IN WATER 850 ML IV STA (22:37)
[2019-06-28] MEDS ORDERED: SODIUM BICARBONATE 50 MEQ/50 ML VIAL ONE (22:44)
[2019-06-29] MEDS ORDERED: ACETAMINOPHEN 325 MG TABLET PO ONE (02:02)
--- NOTE | 2019-06-29 02:18 | XRay Report ---
CLINICAL INFORMATION: pain, new COMPARISON: None. FINDINGS: There is mild degenerative change both SI and hip joints. Moderate L4-5 and L5-S1 degenerative disc disease also noted. No osseous abnormality. Soft tissues are normal. IMPRESSION: Mild bilateral hip and SI degenerative change. Moderate L4-5 and L5-S1 degenerative disc disease. Interpreted and Authenticated by: Jovon Ford 06/29/19
--- NOTE | 2019-06-29 02:24 | XRay Report ---
CLINICAL INFORMATION: agitation, short of breath, crackles right base COMPARISON: 02/21/2019 FINDINGS: Heart size, mediastinum and pulmonary vessels are normal. Lungs are there are. No effusions. Marked bilateral humeral head superior subluxation is compatible with chronic rotator cuff tear/impingement IMPRESSION: No acute disease Interpreted and Authenticated by: Jovon Ford 06/29/19
[2019-06-29 05:19] LABS: ALT/SGPT 45 U/l (0-40); AST/SGOT 50 U/l (0-37); Albumin/Globulin Ratio 1.3 (1.0-2.3); Alkaline Phosphatase 44 U/L (39-117); Bilirubin,Total 0.4 mg/dL (0.0-1.0); Blood Urea Nitrogen 86 mg/dl (8-23); Calcium 9.5 mg/dl (8.6-10.4); Carbon Dioxide 20 mmol/L (22-30); Chloride 105 mmol/L (96-108); Glomerular Filtration Rate 25; Glucose 151 mg/dL (70-105)
--- NOTE | 2019-06-29 07:33 | Nephrology Consult Note ---
History of Present Illness - Reason for Consult Patient information: Note initiated : 06/29/19 at 7:31 am Service Date, if different from initiated Date: [] Patient: Idalia Holloway 83 y/o F admitted on 06/29/19 for Decreased Heart Rate. Chief Complaint: [] Consult date: 06/28/19 acute renal failure, chronic renal failure, hyperkalemia - Chief Complaint Weakness - History of Present Illness This patient is well-known to me. She is an 83-year-old woman with chronic kidney disease level 3, chronic lower extremity edema, admitted with hyperkalemia, weakness, bradycardia and ARF on CKD3. I last saw the patient on 05/21/2019 and she had a stable GFR, HCO3 and K level on benicar and aldactone. My notes were are as follows: "Ms Holloway is a 82 y/o pleasant white female with PMH of HTN, Gout, asthma, dyslipidemia and other medical issues who is here for follow up She has h/o non proteinuric CKD in the context of HTN She also has issues with gout in the setting of allergy to allopurinol and colcrys states had gout flare again, uloric dose increased to 80mg and prednisone ct at 5mg pod aily, symptoms better, continues to follow with rheumatology LE edema stable BP control good, states home readings fine, home cuff checked in the past compared fine, she will get this checked again, ensure she brings BP log no SOB, CP no new urinary symptoms states has been feeling better Labs for today's visit are as follows: Laboratory Tests 05/11/19 05/11/19 05/11/19 09:07 09:07 09:20 WBC 9.0 Hgb 12.6 Hct 38.1 MCV 91.6 Plt Count 159 Sodium 139 Potassium 5.0 Chloride 102 Carbon Dioxide 24 BUN 41 H Creatinine 1.2 H GFR Calculation 41 Glucose 141 H Uric Acid 5.4 Calcium 9.8 Phosphorus 2.9 Albumin 4.3 U [place] Prot/Creat Ratio 0.07 UTI with sepsis earlier in the year. Followed 3 weeks later by a fall and avulsion injury of right leg requiring wound care and skin graft of leg. On dual RASSI therapy and furosemide. Selected Entries Blood Pressure 150/80 127/74 176/95 I discussed blood pressure control with the patient we agreed to continue to monitor at this time as she is undergoing further wound care and skin grafting. She does have some evidence of volume expansion and lower extremity edema on just once a day low-dose furosemide. At follow-up I will consider increasing the furosemide to twice a day dosing to maintain a day long diuresis and aid in blood pressure control. There is been no significant change in her GFR despite an episode of urinary tract related infection her sepsis the fall at home with a evulsion of a rather large section of skin and subcutaneous tissue in her right leg that is taking quite well to heal. Laboratory Tests 06/28/19 06/28/19 06/28/19 19:28 19:28 19:28 Sodium 129 L Potassium 7.3 H* Chloride 99 Carbon Dioxide 15 L Anion Gap 15.0 BUN 103 H* Creatinine 2.3 H GFR Calculation 19 Glucose 157 H Calcium 9.6 AST 61 H ALT 51 H Troponin T 0.04 H* NT-Pro-B Natriuret Pep 2096.0 H Total Protein 7.5 Albumin 4.3 Globulin 3.2 TSH 4.14 06/28/19 06/29/19 06/29/19 23:00 04:12 04:12 Sodium 140 Potassium 5.8 H Chloride 105 Carbon Dioxide 20 L Anion Gap 15.0 BUN 86 H Creatinine 1.8 H GFR Calculation 25 Glucose 151 H Calcium 9.5 AST ALT Troponin T 0.05 H* 0.04 H* NT-Pro-B Natriuret Pep Total Protein Albumin Globulin TSH What appears hifferert is the development of an acidosis and ARF on CKD 3 leading to a marked elevation in serum potassium and probably bradycardia, leading to decreased cardiac output and worsening renal failure and hyperkalemia. This was treated in the standard fashion with insulin and glucose containing fluids and 1 amp of atropine prior to knowing what the serum potassium was above 7. I recommended IV bicarbonate to correct the acid-base status and 1 dose of oral Kayexalate. Since she was on Benicar and spironolactone I would expect that in 24 to 72 hours her GFR and her potassium should both normalized. As shown above her baseline creatinine is 1.2 mg/dL, GFR is 40 cc/min, and potassium was 5.0 on losartan and spironolactone and has been that way for quite some time. serum creatinine Looking through the EMR I do not see a recent echocardiogram. Review of Systems Constitutional: anorexia, fatigue, weight gain Cardiovascular: edema, leg edema, leg ulcers, slow heart rate Respiratory: cough Gastrointestinal: nausea Genitourinary: difficulty voiding Musculoskeletal: muscle weakness Integumentary: sores, swelling Neurological: dizziness Hematologic/Lymphatic: easy bruising Past History Past medical history: Past Medical History Medical history: Reports: arthritis, asthma, GERD, hypertension, renal disease, other (gout) Surgical history ED: Reports: appendectomy, hysterectomy, tonsillectomy - Social History smoking status: Never smoker Alcohol use: Reports: None Drug use: Reports: none Medications and Allergies Home Medications Medication Instructions Recorded Confirmed Type omeprazole 20 mg capsule,delayed 20 mg PO QDAY cap 03/09/15 06/29/19 History release spironolactone 25 mg tablet 25 mg PO QDAY tab 03/09/15 06/29/19 History Cholesterol Formula See Dose Instructions PO BID 03/31/15 05/21/19 History Flexcin See Dose Instructions PO DAILY 03/31/15 05/21/19 History lactobacillus combination no.8 1 PO DAILY 03/31/15 05/21/19 History Lou-C tablet 1 PO DAILY 08/13/17 05/21/19 History calcium mag d3 See Rx Instructions PO DAILY 08/13/17 05/21/19 History clobetasol 0.05 % scalp solution 1 applic TOPICAL ONCE PRN 08/13/17 05/21/19 History esterified estrogens 0.625 mg 1 mg PO QDAY tab 08/13/17 05/21/19 History tablet garlic lecthin PO BID 08/13/17 05/21/19 History sennosides 8.6 mg tablet 25.8 mg PO QDAY tab 01/09/18 05/21/19 History [place]-3 Fish Oil 1,000 mg Sfgl 1,000 mg PO BID 02/21/19 05/21/19 History One Daily Womens 50 Plus Tab 1 tab PO DAILY 02/21/19 05/21/19 History prednisone 5 mg tablet See Rx Instructions .ROUTE 04/05/19 06/29/19 Rx .COMPLEX #90 tablet Uloric 80 mg tablet See Rx Instructions .ROUTE 05/03/19 06/29/19 Rx .COMPLEX #30 tablet NS estradiol 1 mg tablet 1 mg PO QDAY tab 05/21/19 06/29/19 History fluticasone 250 mcg-salmeterol 50 1 inh INHALATION BID 05/21/19 06/29/19 History mcg/dose blistr powdr for inhalation furosemide 20 mg tablet 20 mg PO QDAY tab 05/21/19 06/29/19 History ketoconazole 2 % topical cream 1 applic TOPICAL QDAY 05/21/19 05/21/19 History Fluconazole [Diflucan] 100 mg PO DAILY #5 tab 06/27/19 06/29/19 Rx Acetaminophen [Pain Reliever] 1,000 mg PO TID 06/29/19 06/29/19 History Olmetec 20 mg PO DAILY 06/29/19 06/29/19 History Allergies Allergy/AdvReac Type Severity Reaction Status Date / Time MONTY Inhibitors Allergy Unknown Unknown Verified 06/29/19 06:51 albuterol Allergy Unknown Unknown Verified 06/29/19 06:51 [From Proventil HFA] allopurinol Allergy Unknown Unknown Verified 06/29/19 06:51 Beta-Blockers Allergy Unknown Unknown Verified 06/29/19 06:51 (Beta-Adrenergic Bloc Calcium Channel Blocking Allergy Unknown Unknown Verified 06/29/19 06:51 Agents-Chetan Carbetapentane Allergy Unknown Unknown Verified 06/29/19 06:51 [From Carba-XP] cetirizine [From Zyrtec] Allergy Unknown Unknown Verified 06/29/19 06:51 clonidine Allergy Unknown Unknown Verified 06/29/19 06:51 colchicine Allergy Unknown Unknown Verified 06/29/19 06:51 doxazosin [From Cardura] Allergy Unknown Unknown Verified 06/29/19 06:51 doxycycline Allergy Unknown Unknown Verified 06/29/19 06:51 epoxy resin Allergy Unknown Unknown Verified 06/29/19 06:51 formaldehyde Allergy Unknown Unknown Verified 06/29/19 06:51 guaifenesin [From Carba-XP] Allergy Unknown Unknown Verified 06/29/19 06:51 hydrochlorothiazide Allergy Unknown Unknown Verified 06/29/19 06:51 [From Maxzide] iodine Allergy Unknown Unknown Verified 06/29/19 06:51 isradipine [From DynaCirc] Allergy Unknown Unknown Verified 06/29/19 06:51 methocarbamol Allergy Unknown Unknown Verified 06/29/19 06:51 NSAIDS (Non-Steroidal Allergy Unknown Unknown Verified 06/29/19 06:51 Anti-Inflamma Opioids - Morphine Analogues Allergy Unknown Unknown Verified 06/29/19 06:51 Penicillins Allergy Unknown Unknown Verified 06/29/19 06:51 potassium Allergy Unknown Unknown Verified 06/29/19 06:51 salmeterol [From Serevent] Allergy Unknown Unknown Verified 06/29/19 06:51 Zouglkk-Dwc-Ues Reductase Allergy Unknown Unknown Verified 06/23/19 16:37 Inhibitor Terazosin [From Hytrin] Allergy Unknown Unknown Verified 06/29/19 06:51 theophylline Allergy Unknown Unknown Verified 06/29/19 06:51 Triamterene [From Maxzide] Allergy Unknown Unknown Verified 06/29/19 06:51 Exam - Vital Signs Vital signs: Temp Pulse Resp BP Pulse Ox 36.8 C 76 13 128/102 98 06/29/19 04:01 06/29/19 04:01 06/29/19 06:14 06/29/19 05:01 06/29/19 04:01 - General Appearance General appearance: moderate distress, chronically ill EENT: ATNC, PERRL Neck: JVD Respiratory: kyphosis, course breath sounds, rhonchi Cardiology: no rub, no gallops, edema, regular rhythm, normal S1, normal S2 Gastrointestinal: normoactive bowel sounds, no tenderness, no guarding, no organomegaly Integumentary: warm and dry, ulcer, ecchymotic Neurologic: no focal deficit Musculoskeletal: erythema Psychiatric: mood/affect appropriate Results - Lab Results 06/28/19 19:28 06/29/19 04:12 Most recent lab results Calcium 9.5 mg/dl (8.6-10.4) 06/29/19 04:12 Assessment and Plan (1) Acute prerenal azotemia 1. prerenal azotemia superimposed on CKD 3 with baseline SCr 1.2-1.4 mg/dl Diuretics Decreased po intake 2. Improving with volume and holding ARB/loop and aldosterone antagonist Tomorrow, based on clinical exam, Echo and proBNP will restart loop diuretic +/- aldactone. I'd avoid other RAASI like olmsartan. Status: Acute Priority: High (2) Bradycardia 1. Metabolic in origin (high K+) 2. Monitor / tele 3. No B-blockers / NDHP-CCB / digoxin / or agents which promote elevation in K levels Status: Acute Priority: High (3) Hyperkalemia 1. With EKG changes of QRS wide and bradycardia 2. Appropriate treatment emergently by staff in ED 3. Avoid MORE THAN ONE RAASI Rx at a time even though she tolerated B4. GFR improvingenicar and Aldactone for yrs. 4. GFR improving Status: Acute Priority: High (4) Hyponatremia 1. Too much free water with combination loop and aldactone antagonist diuretics 2. Do not force fluids Status: Acute Priority: High (5) Hypertensive renal disease 1. Has an impressive list of Rx "allergies" 2. Cannot combine 2 different RASSI in the patient 3. If EF is low, SILVIO may be useful as the dose of ARB is low Status: Chronic Priority: Medium (6) CHF (congestive heart failure) 1. Echo and proBNP levels are pending 2. Restart loop diuretics BID tomorrow 3. SODIUM RESTRICTION IS SUAZO Status: Acute Priority: High Qualifiers: Heart failure type: unspecified Heart failure chronicity: acute on chronic Qualified Code(s): I50.9 - Heart failure, unspecified - Narrative A/P Narrative: Improved with appropriate management of brandycardia, hyperkalemia and acute on chronic renal failure Need to know what the LVEF is and the degree of diastolic dysfunction Med changes in AM based on todays studies.
--- NOTE | 2019-06-29 09:23 | Internal Med History&Physical ---
Medical - H&P: HPI Patient information: Note initiated : 06/29/19 at 9:20 am Service Date, if different from initiated Date: [] Patient: Idalia Holloway 83 y/o F admitted on 06/29/19 for Decreased Heart Rate. Chief Complaint: [] Chief complaint: Weakness fatigue History of present illness: Ms. Holloway is a 83 year old F with known history of chronic kidney disease stage III, lower external lymphedema who presents to the ER with progressive weakness/fatigue. During initial evaluation in the ER work-up was consistent with hyperkalemia at 7.3, BUN over 100, patient was promptly started on hyperkalemia protocol and nephrology was consulted. Subsequently hospitalist service was requested for admission At the time of my evaluation patient is alert and oriented. She denies recent NSAID intake or changes in medication. She has been on spironolactone/ARB. She also has been on diuretic for lower extremity swelling which in the recent past has been oozing fluid due to extensive lymphedema however with diuretics her symptoms have improved and lymphedema has since been in control. She denies lightheadedness dizziness, fever, diarrhea, dysuria. She was recently diagnosed with UTI. She regularly follows up with nephrology for management of CKD. She endorses to loss of appetite. She has not been able to function over the last couple of days due to profound weakness and lethargy. Review of systems A 10 point review of system was performed and is negative except for ones cussed above Medical - H&P: PMH Medical history: senior care (current) use of systemic steroids (Acute) Left shoulder pain (Acute) Hyperuricemia (Chronic) Encounter for long-term (current) use of high-risk medication (Acute) Tophaceous gout (Acute) Intolerant of colchicine and allopurinol Tolerates Uloric at 80 mg a day Prednisone for acute flare of the gout and to decrease inflammation Hypertensive renal disease (Chronic) CKD (chronic kidney disease), stage III (Chronic) Stable and probably due to hypertension and/or hyperuricemia Hormone replacement therapy (Chronic) GERD (gastroesophageal reflux disease) (Chronic) Asthma (Chronic) Raynaud's syndrome (Chronic) Hyperlipidemia (Chronic) Right shoulder pain (Chronic) Osteoarthritis (Chronic) Tailor's bunion (Chronic) Metatarsalgia (Chronic) Hyperkeratosis (Chronic) Porokeratosis (Chronic) 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) Gout (Chronic) Hypertension, essential (Chronic) well controlled ct olemsartan and spironolactone follow low sodium diet Dysuria (Chronic) Surgical History History of adenoidectomy (Chronic) History of tonsillectomy (Chronic) History of hysterectomy (Chronic) History of appendectomy (Chronic) Social History smoking status: Never smoker alcohol intake frequency: does not drink substance use type: does not use Medical - H&P: Meds Home Medications Medication Instructions Recorded Confirmed Type omeprazole 20 mg capsule,delayed 20 mg PO QDAY cap 03/09/15 06/29/19 History release spironolactone 25 mg tablet 25 mg PO QDAY tab 03/09/15 06/29/19 History Cholesterol Formula See Dose Instructions PO BID 03/31/15 05/21/19 History Flexcin See Dose Instructions PO DAILY 03/31/15 05/21/19 History lactobacillus combination no.8 1 PO DAILY 03/31/15 05/21/19 History Lou-C tablet 1 PO DAILY 08/13/17 05/21/19 History calcium mag d3 See Rx Instructions PO DAILY 08/13/17 05/21/19 History clobetasol 0.05 % scalp solution 1 applic TOPICAL ONCE PRN 08/13/17 05/21/19 History esterified estrogens 0.625 mg 1 mg PO QDAY tab 08/13/17 05/21/19 History tablet garlic lecthin PO BID 08/13/17 05/21/19 History sennosides 8.6 mg tablet 25.8 mg PO QDAY tab 01/09/18 05/21/19 History [place]-3 Fish Oil 1,000 mg Sfgl 1,000 mg PO BID 02/21/19 05/21/19 History One Daily Womens 50 Plus Tab 1 tab PO DAILY 02/21/19 05/21/19 History prednisone 5 mg tablet See Rx Instructions .ROUTE 04/05/19 06/29/19 Rx .COMPLEX #90 tablet Uloric 80 mg tablet See Rx Instructions .ROUTE 05/03/19 06/29/19 Rx .COMPLEX #30 tablet NS estradiol 1 mg tablet 1 mg PO QDAY tab 05/21/19 06/29/19 History fluticasone 250 mcg-salmeterol 50 1 inh INHALATION BID 05/21/19 06/29/19 History mcg/dose blistr powdr for inhalation furosemide 20 mg tablet 20 mg PO QDAY tab 05/21/19 06/29/19 History ketoconazole 2 % topical cream 1 applic TOPICAL QDAY 05/21/19 05/21/19 History Fluconazole [Diflucan] 100 mg PO DAILY #5 tab 06/27/19 06/29/19 Rx Acetaminophen [Pain Reliever] 1,000 mg PO TID 06/29/19 06/29/19 History Olmetec 20 mg PO DAILY 06/29/19 06/29/19 History Allergies Allergy/AdvReac Type Severity Reaction Status Date / Time MONTY Inhibitors Allergy Unknown Unknown Verified 06/29/19 06:51 albuterol Allergy Unknown Unknown Verified 06/29/19 06:51 [From Proventil HFA] allopurinol Allergy Unknown Unknown Verified 06/29/19 06:51 Beta-Blockers Allergy Unknown Unknown Verified 06/29/19 06:51 (Beta-Adrenergic Bloc Calcium Channel Blocking Allergy Unknown Unknown Verified 06/29/19 06:51 Agents-Chetan Carbetapentane Allergy Unknown Unknown Verified 06/29/19 06:51 [From Carba-XP] cetirizine [From Zyrtec] Allergy Unknown Unknown Verified 06/29/19 06:51 clonidine Allergy Unknown Unknown Verified 06/29/19 06:51 colchicine Allergy Unknown Unknown Verified 06/29/19 06:51 doxazosin [From Cardura] Allergy Unknown Unknown Verified 06/29/19 06:51 doxycycline Allergy Unknown Unknown Verified 06/29/19 06:51 epoxy resin Allergy Unknown Unknown Verified 06/29/19 06:51 formaldehyde Allergy Unknown Unknown Verified 06/29/19 06:51 guaifenesin [From Carba-XP] Allergy Unknown Unknown Verified 06/29/19 06:51 hydrochlorothiazide Allergy Unknown Unknown Verified 06/29/19 06:51 [From Maxzide] iodine Allergy Unknown Unknown Verified 06/29/19 06:51 isradipine [From DynaCirc] Allergy Unknown Unknown Verified 06/29/19 06:51 methocarbamol Allergy Unknown Unknown Verified 06/29/19 06:51 NSAIDS (Non-Steroidal Allergy Unknown Unknown Verified 06/29/19 06:51 Anti-Inflamma Opioids - Morphine Analogues Allergy Unknown Unknown Verified 06/29/19 06:51 Penicillins Allergy Unknown Unknown Verified 06/29/19 06:51 potassium Allergy Unknown Unknown Verified 06/29/19 06:51 salmeterol [From Serevent] Allergy Unknown Unknown Verified 06/29/19 06:51 Kjgecjv-Vfh-Gbr Reductase Allergy Unknown Unknown Verified 06/23/19 16:37 Inhibitor Terazosin [From Hytrin] Allergy Unknown Unknown Verified 06/29/19 06:51 theophylline Allergy Unknown Unknown Verified 06/29/19 06:51 Triamterene [From Maxzide] Allergy Unknown Unknown Verified 06/29/19 06:51 Medical - H&P: Exam - Constitutional Vitals: Temp Pulse Resp BP Pulse Ox 98.2 F 76 20 148/87 98 06/29/19 04:01 06/29/19 04:01 06/29/19 06:22 06/29/19 07:17 06/29/19 04:01 General appearance: morbidly obese Exam: Alert and oriented Head normocephalic Oral cavity dry No ear nose discharge Neck no lymphadenopathy Eye movement symmetrical S1-S2 regular rhythm, ESM grade 1 Bilateral symmetrical breath sounds, diminished at bases Abdomen soft nontender Lower extremity lymphedema noted but no evidence of cellulitis Skin no suspicious lesion Psych alert cooperative Neuro nonfocal Medical - H&P: Reslt - Labs CBC & Chem 7: 06/30/19 04:46 06/30/19 04:46 Labs: Short CBC 06/28/19 Range/Units 19:28 WBC 14.2 H (4.50-11.00) K/mcL Hgb 13.2 (11.2-15.7) g/dL Hct 40.4 (34.1-44.9) % Plt Count 173 (140-440) K/mcL BMP 06/28/19 06/29/19 19:28 04:12 Sodium 129 L 140 Potassium 7.3 H* 5.8 H Chloride 99 105 Carbon Dioxide 15 L 20 L BUN 103 H* 86 H Creatinine 2.3 H 1.8 H Glucose 157 H 151 H Calcium 9.6 9.5 Cardiac Enzymes 06/28/19 06/28/19 06/29/19 Range/Units 19:28 23:00 04:12 Troponin T 0.04 H* 0.05 H* 0.04 H* (0-0.03) ng/ml Liver Function 06/28/19 06/29/19 Range/Units 19:28 04:12 Total Bilirubin 0.3 0.4 (0.0-1.0) mg/dL AST 61 H 50 H (0-37) U/l ALT 51 H 45 H (0-40) U/l Alkaline Phosphatase 46 44 (39-117) U/L Albumin 4.3 4.0 (3.2-5.2) gm/dL Urine 06/28/19 Range/Units 21:00 Urine Color Yellow Urine Appearance Hazy Urine pH 5.0 (5.0-9.0) Ur Specific [place] 1.013 (1.000-1.035) Urine Protein Neg (NEG) mg/dL Urine Glucose (UA) Negative (NEG) mg/dL Medical - H&P: A/P (1) Hyperkalemia Current visit: Yes Status: Acute * Acute hyperkalemia in the setting of CKD/spironolactone/ARB use. Started on hyperkalemia protocol. Nephrology consulted * Acute on chronic disease with prerenal azotemia greater than 100, nephrology consulted. * Weakness and fatigue secondary to overdiuresis. 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 Use as needed steroid for flare * Hypertension usually on home dose spironolactone/Benicar/Lasix , spironolactone and ARB held in light of hyperkalemia. Will be managed per nephrology * DNR * Prophylaxis heparin Plan * Inpatient telemetry admission * Hyperkalemia management per nephrology * Renal failure management per nephrology * Pre-existing medical condition management and home meds * PT OT/nutrition support * Discharge planning Medical - H&P: Qual - VTE Deep Vein Thrombosis/Pulmonary Embolism Present on Admission: No
[2019-06-29] MEDS: ACETAMINOPHEN 500 MG TABLET PO SCH ×2 (14:32→20:20)
--- NOTE | 2019-06-29 17:38 | General Surgery Consult Note ---
History of Present Illness Patient information: Note initiated : 06/29/19 at 5:33 pm Service Date, if different from initiated Date: [] Patient: Idalia Holloway 83 y/o F admitted on 06/29/19 for Decreased Heart Rate. Chief Complaint: [] Consult date: 06/29/19 Requesting physician: Wallace Smart (Wound Care / Management) History of present illness: I saw this patient in room 118 ( telemetry ) along with LEE ANN Heath Inpatient wound care nurse. I know this patient from before. She is an established patient at wound care center for treatment of wounds to RIGHT leg. I reviewed the notes of Hospitalist Physician, Site Leader. Following her current progress since emergency hospitalization for Acid-Base Imbalance, ARF and EKG abnormalities. She is improving clinically. and her Electrolyte abnormalities ( Hyperkalemia ) and Acidosis is resolving. I examined her wounds. See detailed wound care orders by wound care nurse. Medications and Allergies Home Medications Medication Instructions Recorded Confirmed Type omeprazole 20 mg capsule,delayed 20 mg PO QDAY cap 03/09/15 06/29/19 History release spironolactone 25 mg tablet 25 mg PO QDAY tab 03/09/15 06/29/19 History Cholesterol Formula See Dose Instructions PO BID 03/31/15 05/21/19 History Flexcin See Dose Instructions PO DAILY 03/31/15 05/21/19 History lactobacillus combination no.8 1 PO DAILY 03/31/15 05/21/19 History Lou-C tablet 1 PO DAILY 08/13/17 05/21/19 History calcium mag d3 See Rx Instructions PO DAILY 08/13/17 05/21/19 History clobetasol 0.05 % scalp solution 1 applic TOPICAL ONCE PRN 08/13/17 05/21/19 History esterified estrogens 0.625 mg 1 mg PO QDAY tab 08/13/17 05/21/19 History tablet garlic lecthin PO BID 08/13/17 05/21/19 History sennosides 8.6 mg tablet 25.8 mg PO QDAY tab 01/09/18 05/21/19 History [place]-3 Fish Oil 1,000 mg Sfgl 1,000 mg PO BID 02/21/19 05/21/19 History One Daily Womens 50 Plus Tab 1 tab PO DAILY 02/21/19 05/21/19 History prednisone 5 mg tablet See Rx Instructions .ROUTE 04/05/19 06/29/19 Rx .COMPLEX #90 tablet Uloric 80 mg tablet See Rx Instructions .ROUTE 05/03/19 06/29/19 Rx .COMPLEX #30 tablet NS estradiol 1 mg tablet 1 mg PO QDAY tab 05/21/19 06/29/19 History fluticasone 250 mcg-salmeterol 50 1 inh INHALATION BID 05/21/19 06/29/19 History mcg/dose blistr powdr for inhalation furosemide 20 mg tablet 20 mg PO QDAY tab 05/21/19 06/29/19 History ketoconazole 2 % topical cream 1 applic TOPICAL QDAY 05/21/19 05/21/19 History Fluconazole [Diflucan] 100 mg PO DAILY #5 tab 06/27/19 06/29/19 Rx Acetaminophen [Pain Reliever] 1,000 mg PO TID 06/29/19 06/29/19 History Olmetec 20 mg PO DAILY 06/29/19 06/29/19 History Allergies Allergy/AdvReac Type Severity Reaction Status Date / Time MONTY Inhibitors Allergy Unknown Unknown Verified 06/29/19 06:51 albuterol Allergy Unknown Unknown Verified 06/29/19 06:51 [From Proventil HFA] allopurinol Allergy Unknown Unknown Verified 06/29/19 06:51 Beta-Blockers Allergy Unknown Unknown Verified 06/29/19 06:51 (Beta-Adrenergic Bloc Calcium Channel Blocking Allergy Unknown Unknown Verified 06/29/19 06:51 Agents-Chetan Carbetapentane Allergy Unknown Unknown Verified 06/29/19 06:51 [From Carba-XP] cetirizine [From Zyrtec] Allergy Unknown Unknown Verified 06/29/19 06:51 clonidine Allergy Unknown Unknown Verified 06/29/19 06:51 colchicine Allergy Unknown Unknown Verified 06/29/19 06:51 doxazosin [From Cardura] Allergy Unknown Unknown Verified 06/29/19 06:51 doxycycline Allergy Unknown Unknown Verified 06/29/19 06:51 epoxy resin Allergy Unknown Unknown Verified 06/29/19 06:51 formaldehyde Allergy Unknown Unknown Verified 06/29/19 06:51 guaifenesin [From Carba-XP] Allergy Unknown Unknown Verified 06/29/19 06:51 hydrochlorothiazide Allergy Unknown Unknown Verified 06/29/19 06:51 [From Maxzide] iodine Allergy Unknown Unknown Verified 06/29/19 06:51 isradipine [From DynaCirc] Allergy Unknown Unknown Verified 06/29/19 06:51 methocarbamol Allergy Unknown Unknown Verified 06/29/19 06:51 NSAIDS (Non-Steroidal Allergy Unknown Unknown Verified 06/29/19 06:51 Anti-Inflamma Opioids - Morphine Analogues Allergy Unknown Unknown Verified 06/29/19 06:51 Penicillins Allergy Unknown Unknown Verified 06/29/19 06:51 potassium Allergy Unknown Unknown Verified 06/29/19 06:51 salmeterol [From Serevent] Allergy Unknown Unknown Verified 06/29/19 06:51 Chqeqxs-Hse-Aqj Reductase Allergy Unknown Unknown Verified 06/23/19 16:37 Inhibitor Terazosin [From Hytrin] Allergy Unknown Unknown Verified 06/29/19 06:51 theophylline Allergy Unknown Unknown Verified 06/29/19 06:51 Triamterene [From Maxzide] Allergy Unknown Unknown Verified 06/29/19 06:51 Exam Temp Pulse Resp BP Pulse Ox 96.9 F L 71 18 128/71 97 06/29/19 16:02 06/29/19 12:46 06/29/19 16:02 06/29/19 16:02 06/29/19 16:02 - General physical appearance well developed, no distress, chronically ill - Eyes PERRL, normal ocular movement - ENT normal pinna, normal mucosa, no congestion - Head Head exam IM: Present: atraumatic, normal inspection - Neck trachea midline, no venous distension - Cardiovascular Cardiovascular exam IM: Present: irregular rhythm - Respiratory clear to auscultation - Abdomen Abdomen: Present: non tender, bowel sounds - Integumentary Present: other (Stable skin ulcers Grade 2, Right leg lower hernández and calf region.) - Neurologic Present: normal coordination, other (No focal neurological deficits.) - Musculoskeletal Present: normal posture - Psychiatric Present: oriented to time, oriented to person, oriented to place, speech is normal, memory intact Results - Labs 06/30/19 04:46 06/30/19 04:46 Abnormal lab results 06/28/19 06/28/19 06/28/19 Range/Units 19:28 19:28 19:28 WBC 14.2 H (4.50-11.00) K/mcL POC Hct (36.0-48.0) % RDW 15.2 H (11.5-14.5) % MPV 11.1 H (7.4-10.4) fL Gran % 81.8 H (38.0-78.0) % Lymph % (Auto) 11.3 L (15.5-49.0) % Gran # 11.57 H (1.80-8.00) K/mcL Finney # (Auto) 0.94 H (0.10-0.90) K/mcL Sodium 129 L (133-145) mmol/L POC Potassium (3.3-5.1) mmol/L Potassium 7.3 H* (3.3-5.1) mmol/L POC Chloride (96-108) mmol/L Carbon Dioxide 15 L (22-30) mmol/L POC Total CO2 (22-30) mmol/L POC BUN (8-23) mg/dl BUN 103 H* (8-23) mg/dl Creatinine 2.3 H (0.6-1.1) mg/dl POC Creatinine (0.6-1.1) mg/dl Glucose 157 H (70-105) mg/dL POC Glucose (70-105) mg/dL POC WB Ioniz Calcium (1.16-1.32) mmol/L AST 61 H (0-37) U/l ALT 51 H (0-40) U/l Troponin T (0-0.03) ng/ml C-Reactive Protein 2.6 H (0.0-0.8) mg/dl NT-Pro-B Natriuret Pep 2096.0 H (0-450) pg/ml Ur Leukocyte Esterase (NEG) /uL Urine WBC (0-4) /hpf Ur Squamous Epith Cells (0-4) /hpf Urine Bacteria (0) /hpf 06/28/19 06/28/19 06/28/19 Range/Units 19:28 21:00 21:34 WBC (4.50-11.00) K/mcL POC Hct 34.0 L (36.0-48.0) % RDW (11.5-14.5) % MPV (7.4-10.4) fL Gran % (38.0-78.0) % Lymph % (Auto) (15.5-49.0) % Gran # (1.80-8.00) K/mcL Finney # (Auto) (0.10-0.90) K/mcL Sodium (133-145) mmol/L POC Potassium 6.5 H* (3.3-5.1) mmol/L Potassium (3.3-5.1) mmol/L POC Chloride 111 H (96-108) mmol/L Carbon Dioxide (22-30) mmol/L POC Total CO2 17 L (22-30) mmol/L POC BUN 102 H* (8-23) mg/dl BUN (8-23) mg/dl Creatinine (0.6-1.1) mg/dl POC Creatinine 2.0 H (0.6-1.1) mg/dl Glucose (70-105) mg/dL POC Glucose 128 H (70-105) mg/dL POC WB Ioniz Calcium 1.12 L (1.16-1.32) mmol/L AST (0-37) U/l ALT (0-40) U/l Troponin T 0.04 H* (0-0.03) ng/ml C-Reactive Protein (0.0-0.8) mg/dl NT-Pro-B Natriuret Pep (0-450) pg/ml Ur Leukocyte Esterase 25 A (NEG) /uL Urine WBC 5 H (0-4) /hpf Ur Squamous Epith Cells 16 H (0-4) /hpf Urine Bacteria Mod A (0) /hpf 06/28/19 06/29/19 06/29/19 Range/Units 23:00 04:12 04:12 WBC (4.50-11.00) K/mcL POC Hct (36.0-48.0) % RDW (11.5-14.5) % MPV (7.4-10.4) fL Gran % (38.0-78.0) % Lymph % (Auto) (15.5-49.0) % Gran # (1.80-8.00) K/mcL Finney # (Auto) (0.10-0.90) K/mcL Sodium (133-145) mmol/L POC Potassium (3.3-5.1) mmol/L Potassium 5.8 H (3.3-5.1) mmol/L POC Chloride (96-108) mmol/L Carbon Dioxide 20 L (22-30) mmol/L POC Total CO2 (22-30) mmol/L POC BUN (8-23) mg/dl BUN 86 H (8-23) mg/dl Creatinine 1.8 H (0.6-1.1) mg/dl POC Creatinine (0.6-1.1) mg/dl Glucose 151 H (70-105) mg/dL POC Glucose (70-105) mg/dL POC WB Ioniz Calcium (1.16-1.32) mmol/L AST 50 H (0-37) U/l ALT 45 H (0-40) U/l Troponin T 0.05 H* 0.04 H* (0-0.03) ng/ml C-Reactive Protein (0.0-0.8) mg/dl NT-Pro-B Natriuret Pep (0-450) pg/ml Ur Leukocyte Esterase (NEG) /uL Urine WBC (0-4) /hpf Ur Squamous Epith Cells (0-4) /hpf Urine Bacteria (0) /hpf Diabetes panel 06/28/19 06/29/19 Range/Units 19:28 04:12 Sodium 129 L 140 (133-145) mmol/L Potassium 7.3 H* 5.8 H (3.3-5.1) mmol/L Chloride 99 105 (96-108) mmol/L Carbon Dioxide 15 L 20 L (22-30) mmol/L BUN 103 H* 86 H (8-23) mg/dl Creatinine 2.3 H 1.8 H (0.6-1.1) mg/dl Glucose 157 H 151 H (70-105) mg/dL Calcium 9.6 9.5 (8.6-10.4) mg/dl AST 61 H 50 H (0-37) U/l ALT 51 H 45 H (0-40) U/l Alkaline Phosphatase 46 44 (39-117) U/L Total Protein 7.5 7.0 (5.9-8.4) gm/dL Albumin 4.3 4.0 (3.2-5.2) gm/dL Thyroid panel 06/28/19 Range/Units 19:28 TSH 4.14 (0.27-5.01) uIU/ml Calcium panel 06/28/19 06/29/19 Range/Units 19:28 04:12 Calcium 9.6 9.5 (8.6-10.4) mg/dl Albumin 4.3 4.0 (3.2-5.2) gm/dL Pituitary panel 06/28/19 06/29/19 Range/Units 19:28 04:12 Sodium 129 L 140 (133-145) mmol/L Potassium 7.3 H* 5.8 H (3.3-5.1) mmol/L Chloride 99 105 (96-108) mmol/L Carbon Dioxide 15 L 20 L (22-30) mmol/L BUN 103 H* 86 H (8-23) mg/dl Creatinine 2.3 H 1.8 H (0.6-1.1) mg/dl Glucose 157 H 151 H (70-105) mg/dL Calcium 9.6 9.5 (8.6-10.4) mg/dl TSH 4.14 (0.27-5.01) uIU/ml Adrenal panel 06/28/19 06/29/19 Range/Units 19:28 04:12 Sodium 129 L 140 (133-145) mmol/L Potassium 7.3 H* 5.8 H (3.3-5.1) mmol/L Chloride 99 105 (96-108) mmol/L Carbon Dioxide 15 L 20 L (22-30) mmol/L BUN 103 H* 86 H (8-23) mg/dl Creatinine 2.3 H 1.8 H (0.6-1.1) mg/dl Glucose 157 H 151 H (70-105) mg/dL Calcium 9.6 9.5 (8.6-10.4) mg/dl Total Bilirubin 0.3 0.4 (0.0-1.0) mg/dL AST 61 H 50 H (0-37) U/l ALT 51 H 45 H (0-40) U/l Alkaline Phosphatase 46 44 (39-117) U/L Total Protein 7.5 7.0 (5.9-8.4) gm/dL Albumin 4.3 4.0 (3.2-5.2) gm/dL All other labs normal. Assessment and Plan (1) Encounter for wound care Status: Chronic Priority: Low Comment: Patient emergently admitted via ER with Acid-Base abnormalities, Hyperkalemia and Hypnatremia with a background of Hypertensive CKD. Responding to ongoing medical management. WOUND CARE orders as entered. F/U at the wound care cnetre after discharge.
[2019-06-30] MEDS: ACETAMINOPHEN 500 MG TABLET PO SCH ×4 (02:50→20:29)
[2019-06-30 06:24] LABS: Hematocrit 36.8 % (34.1-44.9); Hemoglobin 11.7 g/dL (11.2-15.7); Mean Cell Volume 90.4 fL (80.0-100.0); Mean Corpuscular HGB Conc 31.8 g/dL (31.0-36.0); Mean Platelet Volume 10.8 fL (7.4-10.4); Platelet Count 153 K/mcL (140-440); RBC 4.07 M/mcL (3.59-5.38); Red Cell Distribution Width 15.3 % (11.5-14.5); WBC 8.8 K/mcL (4.50-11.00)
[2019-06-30 06:56] LABS: proBNP 893.4 pg/ml (0-450)
[2019-06-30 07:11] LABS: ALT/SGPT 42 U/l (0-40); AST/SGOT 57 U/l (0-37); Albumin 3.7 gm/dL (3.2-5.2); Albumin/Globulin Ratio 1.4 (1.0-2.3); Alkaline Phosphatase 43 U/L (39-117); Bilirubin,Direct < 0.2 mg/dL (0.0-0.3); Bilirubin,Total 0.4 mg/dL (0.0-1.0); Calcium 8.9 mg/dl (8.6-10.4); Carbon Dioxide 22 mmol/L (22-30); Chloride 103 mmol/L (96-108); Globulin 2.7 gm/dL (2.2-3.7); Glucose 118 mg/dL (70-105); Lactate Dehydrogenase 362 U/L (94-250); Phosphorous 2.9 mg/dL (2.7-4.5); Triglycerides 69 mg/dl (<150); Uric Acid 5.3 mg/dL (2.5-8.0)
[2019-06-30 07:15] LABS: Blood Urea Nitrogen 48 mg/dl (8-23); Glomerular Filtration Rate 41
[2019-06-30 07:52] LABS: Lymphocytes % 13 % (15-49); Monocytes % (Manual) 5 % (1-12); Platelet Estimate NORMAL (NORMAL); RBC Morphology NORMAL (NORMAL); Segmented Neutrophils % 82 % (38-78)
[2019-06-30] MEDS: methylPREDNISolone 1 PACKET TABLET PO SCH ×3 (08:32→22:40)
[2019-06-30] MEDS: OMEPRAZOLE 20 MG CAPSULE PO SCH (08:32)
[2019-06-30] MEDS: ESTRADIOL 1 MG TABLET PO SCH (08:32)
--- NOTE | 2019-06-30 08:57 | Nephrology Progress Note ---
Subjective Patient information: Note initiated : 06/30/19 at 8:54 am Service Date, if different from initiated Date: [] Patient: Idalia Holloway 83 y/o F admitted on 06/29/19 for Decreased Heart Rate. Chief Complaint: [] Principal diagnosis: Acute on Chronic CHF, hyperkalemia, acidosis Interval history: Patient was seen and examined on morning rounds, concerns and cares were discussed with daughter at the bedside as well as the patient. Complaining of some pain involving the Achilles tendon or beneath it that she thinks is related to her gout. She had been on Uloric as she had an adverse reaction (thrombocytopenia) while taking allopurinol and some other gout medication. She is hemodynamically stable and today's labs are as follows: Pertinent ROS: Nothing new Additional PMFSH (Level 3 Only): N/A Objective - Vital Signs Vital signs: Vital Signs Temp Pulse Pulse Resp BP BP Pulse Ox 06/30/19 08:00 37.0 C 88 20 125/80 97 06/30/19 04:30 36.1 C 22 132/76 94 06/30/19 00:15 36.2 C 20 138/63 98 06/29/19 20:22 36.3 C 16 109/60 98 06/29/19 18:05 78 97 06/29/19 16:17 103/64 06/29/19 16:02 36.1 C L 18 128/71 97 06/29/19 16:01 128/71 06/29/19 15:46 101/73 06/29/19 15:31 101/91 06/29/19 15:01 121/77 06/29/19 14:46 113/64 06/29/19 14:31 127/69 06/29/19 14:16 70/60 06/29/19 14:01 92/81 06/29/19 13:47 116/64 06/29/19 13:31 120/70 06/29/19 13:16 116/69 06/29/19 12:46 71 126/115 97 06/29/19 12:33 72 134/73 98 06/29/19 12:16 76 20 127/70 99 06/29/19 12:01 75 130/100 100 06/29/19 11:46 69 117/78 98 06/29/19 11:31 148/84 06/29/19 11:17 76 123/65 96 06/29/19 11:10 78 127/110 98 06/29/19 10:25 82 110/70 98 Intake and Output 06/29/19 06/30/19 06/30/19 21:59 05:59 13:59 Intake Total 1165 360 700 Output Total 720 600 150 Balance 445 -240 550 Intake: IV 615 Sodium Bicarbonate Vial 150 Meq 615 In Dextrose 5% in Water 850 ml @ 100 mls/hr IV NOW STA Rx#: [id number] Oral 550 360 700 Output: Void Amount 720 600 150 Other: Meal Dinner Breakfast Percent of Meal Consumed 75% 75% Feeding Ability Independent Independent Urine Appearance Clear Clear Urine Color Dark Yellow Dark Yellow Stool Size Smear Small Stool Color Brown Brown Stool Consistency Soft Soft # Bowel Movements 1 Weight 93.531 kg Intake & Output: Intake & Output 06/29/19 06/30/19 06/30/19 21:59 05:59 13:59 Intake Total 1165 360 700 Output Total 720 600 150 Balance 445 -240 550 Weight 93.531 kg Intake: IV 615 Sodium Bicarbonate Vial 150 Meq 615 In Dextrose 5% in Water 850 ml @ 100 mls/hr IV NOW STA Rx#: [id number] Oral 550 360 700 Output: Void Amount 720 600 150 Other: Meal Dinner Breakfast Percent of Meal Consumed 75% 75% Feeding Ability Independent Independent Urine Appearance Clear Clear Urine Color Dark Yellow Dark Yellow Stool Size Smear Small Stool Color Brown Brown Stool Consistency Soft Soft # Bowel Movements 1 - General Appearance General appearance: appears started age, chronically ill EENT: ATNC, PERRL Neck: no JVD, no thyromegaly, no carotid bruit Respiratory: kyphosis Cardiology: no gallops, edema Gastrointestinal: normoactive bowel sounds, no tenderness Integumentary: no rash, warm and dry, erythema Neurologic: no focal deficit Musculoskeletal: no deformities, no erythema Psychiatric: mood/affect appropriate - Lab 06/30/19 04:46 06/30/19 04:46 Most recent lab results Calcium 8.9 mg/dl (8.6-10.4) 06/30/19 04:46 Phosphorus 2.9 mg/dL (2.7-4.5) 06/30/19 04:46 Magnesium 2.2 mg/dL (1.6-2.5) 06/30/19 04:46 Assessment and Plan (1) Acute prerenal azotemia 1. Back to baseline GFR 2. RAASI Tx not needed 3. Start BID furosemide 20 mg po 4. Home soon Status: Acute Priority: High (2) Bradycardia 1. Resolved with tx of hyperkalemia Status: Acute Priority: High (3) Hyperkalemia 1. Avoid Dual RAASI therapy 2. No Olsartan on spironolactone for now Status: Acute Priority: High (4) Hyponatremia 1. Avoid diuretic combos 2. Oral fluid restrict 1500 cc 3. Continue salt restricted diet - no NuSalt or LoSalt substitues as KCl present Status: Acute Priority: High (5) Hypertensive renal disease 1. BP adequately controlled 2. Lasix and sodium restricted diet for now 3. No amlodipine of nifedipine Status: Chronic Priority: Medium (6) CHF (congestive heart failure) 1. No echocardiographic evidence of decrease LV or RV function, pulmonary HTN of diastolic dysfunction 2. Edema may relate to salt loading Status: Acute Priority: High Qualifiers: Heart failure type: unspecified Heart failure chronicity: acute on chronic Qualified Code(s): I50.9 - Heart failure, unspecified - Narrative A/P Narrative: Improved with appropriate management of brandycardia, hyperkalemia and acute on chronic renal failure LVEF is 60-65% and the degree of diastolic dysfunction in none Med changes based on todays studies and mildly elevated BNP Restart uloric from home.
--- NOTE | 2019-06-30 09:28 | Internal Med Progress Note ---
Medical - PN: Subj Patient information: Note initiated : 06/30/19 at 9:25 am Service Date, if different from initiated Date: [] Patient: Idalia Holloway 83 y/o F admitted on 06/29/19 for Decreased Heart Rate. Chief Complaint: [] Interval history: Ms. Holloway is a 83 year old F with known history of chronic kidney disease stage III, lower external lymphedema who presents to the ER with progressive weakness/fatigue. During initial evaluation in the ER work-up was consistent with hyperkalemia at 7.3, BUN over 100, patient was promptly started on hyperkalemia protocol and nephrology was consulted. Subsequently hospitalist service was requested for admission At the time of my evaluation patient is alert and oriented. She denies recent NSAID intake or changes in medication. She has been on spironolactone/ARB. She also has been on diuretic for lower extremity swelling which in the recent past has been oozing fluid due to extensive lymphedema however with diuretics her symptoms have improved and lymphedema has since been in control. She denies lightheadedness dizziness, fever, diarrhea, dysuria. She was recently diagnosed with UTI. She regularly follows up with nephrology for management of CKD. She endorses to loss of appetite. She has not been able to function over the last couple of days due to profound weakness and lethargy. 06/30-patient doing well. Potassium down to 4.9. Creatinine down from 2-1.2 with BUN downtrending from 102-48. Managed per nephrology. Improved fatigue , ongoing PT OT. Tolerating diet. Nephrology optimizing medication management. Anticipate discharge in 24 hours - Constitutional Vitals: Vital Signs Temp Pulse Resp BP Pulse Ox 98.6 F 88 20 125/80 97 06/30/19 08:00 06/30/19 08:00 06/30/19 08:00 06/30/19 08:00 06/30/19 08:00 Period Temp Pulse Resp BP Sys/Crane Pulse Ox Last 24 Hr 96.9 F-98.6 F 69-88 16-22 70-148/60-115 94-100 Intake and Output 06/29/19 06/30/19 06/30/19 21:59 05:59 13:59 Intake Total 1165 360 700 Output Total 720 600 150 Balance 445 -240 550 Weight 206 lb 3.2 oz Intake & Output: Intake & Output 06/29/19 06/30/19 06/30/19 21:59 05:59 13:59 Intake Total 1165 360 700 Output Total 720 600 150 Balance 445 -240 550 Weight 206 lb 3.2 oz Intake: IV 615 Sodium Bicarbonate Vial 150 Meq 615 In Dextrose 5% in Water 850 ml @ 100 mls/hr IV NOW STA Rx#: [id number] Oral 550 360 700 Output: Void Amount 720 600 150 Other: Meal Dinner Breakfast Percent of Meal Consumed 75% 75% Feeding Ability Independent Independent Urine Appearance Clear Clear Urine Color Dark Yellow Dark Yellow Stool Size Smear Small Stool Color Brown Brown Stool Consistency Soft Soft # Bowel Movements 1 General appearance: no acute distress Exam: Alert oriented Nonlabored breathing Lymphedema lower extremity No telemetry events Medical - PN: Obj Da - Labs CBC & Chem 7: 06/30/19 04:46 06/30/19 04:46 Labs: Abnormal Lab Results 06/30/19 06/30/19 06/29/19 04:46 04:46 04:12 WBC POC Hct RDW 15.3 H MPV 10.8 H Gran % Lymph % (Auto) Gran # Bartholomew # (Auto) Seg Neutrophils % 82 H Lymphocytes % 13 L Sodium POC Potassium Potassium POC Chloride Carbon Dioxide POC Total CO2 POC BUN BUN 48 H Creatinine 1.2 H POC Creatinine Glucose 118 H POC Glucose POC WB Ioniz Calcium GGT 288 H AST 57 H ALT 42 H Lactate Dehydrogenase 362 H Troponin T 0.04 H* C-Reactive Protein NT-Pro-B Natriuret Pep 893.4 H Ur Leukocyte Esterase Urine WBC Ur Squamous Epith Cells Urine Bacteria 06/29/19 06/28/19 06/28/19 04:12 23:00 21:34 WBC POC Hct 34.0 L RDW MPV Gran % Lymph % (Auto) Gran # Bartholomew # (Auto) Seg Neutrophils % Lymphocytes % Sodium POC Potassium 6.5 H* Potassium 5.8 H POC Chloride 111 H Carbon Dioxide 20 L POC Total CO2 17 L POC BUN 102 H* BUN 86 H Creatinine 1.8 H POC Creatinine 2.0 H Glucose 151 H POC Glucose 128 H POC WB Ioniz Calcium 1.12 L GGT AST 50 H ALT 45 H Lactate Dehydrogenase Troponin T 0.05 H* C-Reactive Protein NT-Pro-B Natriuret Pep Ur Leukocyte Esterase Urine WBC Ur Squamous Epith Cells Urine Bacteria 06/28/19 06/28/19 06/28/19 21:00 19:28 19:28 WBC POC Hct RDW MPV Gran % Lymph % (Auto) Gran # Bartholomew # (Auto) Seg Neutrophils % Lymphocytes % Sodium POC Potassium Potassium POC Chloride Carbon Dioxide POC Total CO2 POC BUN BUN Creatinine POC Creatinine Glucose POC Glucose POC WB Ioniz Calcium GGT AST ALT Lactate Dehydrogenase Troponin T 0.04 H* C-Reactive Protein NT-Pro-B Natriuret Pep 2096.0 H Ur Leukocyte Esterase 25 A Urine WBC 5 H Ur Squamous Epith Cells 16 H Urine Bacteria Mod A 06/28/19 06/28/19 19:28 19:28 WBC 14.2 H POC Hct RDW 15.2 H MPV 11.1 H Gran % 81.8 H Lymph % (Auto) 11.3 L Gran # 11.57 H Bartholomew # (Auto) 0.94 H Seg Neutrophils % Lymphocytes % Sodium 129 L POC Potassium Potassium 7.3 H* POC Chloride Carbon Dioxide 15 L POC Total CO2 POC BUN BUN 103 H* Creatinine 2.3 H POC Creatinine Glucose 157 H POC Glucose POC WB Ioniz Calcium GGT AST 61 H ALT 51 H Lactate Dehydrogenase Troponin T C-Reactive Protein 2.6 H NT-Pro-B Natriuret Pep Ur Leukocyte Esterase Urine WBC Ur Squamous Epith Cells Urine Bacteria Meds: Medications Acetaminophen (Tylenol) 1,000 mg PO TID [facility]; Protocol Last Admin: 06/30/19 08:32 Dose: 1,000 mg Documented by: Estradiol (Estrace) 1 mg PO QDAY [facility] Last Admin: 06/30/19 08:32 Dose: 1 mg Documented by: Methylprednisolone (Medrol Dose Pack) 1 packet PO [facility] [place]: 07/07/19 15:00 Last Admin: 06/30/19 08:32 Dose: 1 packet Documented by: [facility] Last Admin: 06/30/19 08:32 Dose: 20 mg Documented by: Medical - PN: A/P - Time Spent With Patient Total time spent is greater than 50% in coordination of care (as documented) at patient's floor/unit and/or counseling patient: 25 - 35 minutes (1) Hyperkalemia Status: Acute Assessment and plan: * Acute hyperkalemia 7.3 now down to 4.8. Ongoing management per nephrology. * Acute on chronic disease with prerenal azotemia greater than 100, , creatinine down from 2-1.2, BUN from 108 down to 50 * Weakness and fatigue secondary to overdiuresis. Clinically improving with crystalloids, continue PT OT/nutrition support * Acute gout flare start Medrol Dosepak * Hypertension ongoing medication optimization per nephrology * DNR * Prophylaxis heparin Plan * Renal failure management per nephrology * PT OT/nutrition support * Discharge planning likely in 24 hours Current Visit: Yes Medical - PN: Qual - VTE Deep Vein Thrombosis/Pulmonary Embolism Present on Admission: No
[2019-06-30 17:05] LABS: Creatinine,Urine Random 90.1 mg/dl
[2019-06-30] MEDS: FUROSEMIDE 20 MG TABLET PO SCH (17:52)
[2019-07-01 06:26] LABS: Hematocrit 33.1 % (34.1-44.9); Hemoglobin 10.7 g/dL (11.2-15.7); Mean Cell Volume 90.9 fL (80.0-100.0); Mean Corpuscular HGB Conc 32.3 g/dL (31.0-36.0); Mean Platelet Volume 10.2 fL (7.4-10.4); Platelet Count 125 K/mcL (140-440); RBC 3.64 M/mcL (3.59-5.38)
[2019-07-01 06:57] LABS: Anisocytosis FEW (NONE SEEN); Lymphocytes % 10 % (15-49); Monocytes % (Manual) 5 % (1-12); Platelet Estimate DECREASED (NORMAL); RBC Morphology ABNORM (NORMAL); Reactive Lymphocytes 1 % (0-2); Segmented Neutrophils % 84 % (38-78)
[2019-07-01 07:22] LABS: ALT/SGPT 39 U/l (0-40); AST/SGOT 45 U/l (0-37); Albumin 3.5 gm/dL (3.2-5.2); Albumin/Globulin Ratio 1.3 (1.0-2.3); Alkaline Phosphatase 39 U/L (39-117); Bilirubin,Direct < 0.2 mg/dL (0.0-0.3); Bilirubin,Total 0.3 mg/dL (0.0-1.0); Blood Urea Nitrogen 44 mg/dl (8-23); Calcium 8.8 mg/dl (8.6-10.4); Carbon Dioxide 23 mmol/L (22-30); Chloride 103 mmol/L (96-108); Globulin 2.7 gm/dL (2.2-3.7); Glomerular Filtration Rate 37; Glucose 170 mg/dL (70-105); Lactate Dehydrogenase 344 U/L (94-250); Phosphorous 3.5 mg/dL (2.7-4.5); Triglycerides 58 mg/dl (<150); Uric Acid 5.6 mg/dL (2.5-8.0)
[2019-07-01] MEDS: OMEPRAZOLE 20 MG CAPSULE PO SCH (07:31)
[2019-07-01] MEDS: ESTRADIOL 1 MG TABLET PO SCH (09:01)
[2019-07-01] MEDS: methylPREDNISolone 1 PACKET TABLET PO SCH ×2 (09:01→14:27)
[2019-07-01] MEDS: ACETAMINOPHEN 500 MG TABLET PO SCH (09:01)
[2019-07-01] MEDS: FUROSEMIDE 20 MG TABLET PO SCH (09:01)
[2019-07-01] MEDS ORDERED: FLU VACC QS2019-20(6MOS UP)/PF 60 MCG/0.5 ML SYRINGE IM ONE (10:00)
[2019-07-01] MEDS ORDERED: FLUTICASONE/SALMETEROL 250/50 INHALER #14 INH SCH (10:00)
--- NOTE | 2019-07-01 13:38 | Discharge Summary ---
Medical - DS: Prov Patient information: Note initiated : 07/01/19 at 1:36 pm Service Date, if different from initiated Date: [] Patient: Idalia Holloway 83 y/o F admitted on 06/29/19 for Decreased Heart Rate. Chief Complaint: [] Date of admission: 06/29/19 03:02 Discharge date: 07/01/19 Primary care physician: Yohana Feliciano Consults: 06/29/19 Consult to Physician [CONS] Stat Comment: Consulting Provider: Wallace Smart Reason For Exam: Physician to Consult Consult to Physician [CONS] Stat Comment: Consulting Provider: Don Spencer Reason For Exam: Physician to Consult 06/29/19 10:25 Consult to Physician [CONS] Routine Comment: Consulting Provider: Haile Montgomery Reason For Exam: wound care Medical - DS: Meds - Discharge Medications Active and Home Medications: Home Medications omeprazole 20 mg capsule,delayed release 20 mg PO QDAY cap 03/09/15 [History Confirmed 06/29/19 Last Taken 06/28/19 08:30] Cholesterol Formula 2 capsule PO BID 03/31/15 [History Confirmed 07/01/19 Last Taken 02/21/19 4 Capsules] Flexcin See Dose Instructions PO DAILY 03/31/15 [History Confirmed 05/21/19 Last Taken 02/21/19 2 Capsules] lactobacillus combination no.8 1 PO DAILY 03/31/15 [History Confirmed 05/21/19 Last Taken 06/28/19 08:30] Lou-C tablet 1 tab PO DAILY 08/13/17 [History Confirmed 07/01/19 Last Taken 06/28/19 16:30] calcium mag d3 See Rx Instructions PO DAILY 08/13/17 [History Confirmed 07/01/19 Last Taken 06/26/19 17:00] clobetasol 0.05 % scalp solution 1 applic TOPICAL ONCE PRN 08/13/17 [History Confirmed 07/01/19 Last Taken 04/16/19 17:00] garlic lecthin PO BID 08/13/17 [History Confirmed 05/21/19 Last Taken 02/21/19 4 capsules] sennosides 8.6 mg tablet 25.8 mg PO QDAY tab 01/09/18 [History Confirmed 05/21/19 Last Taken 06/28/19 08:30] [place]-3 Fish Oil 1,000 mg Sfgl 1,000 mg PO BID 02/21/19 [History Confirmed 05/21/19 Last Taken Unknown] One Daily Womens 50 Plus Tab 1 tab PO DAILY 02/21/19 [History Confirmed 05/21/19 Last Taken 06/28/19 08:30] prednisone 5 mg tablet See Rx Instructions .ROUTE .COMPLEX #90 tablet 04/05/19 [Rx Confirmed 06/29/19 Last Taken 06/28/19 08:30] estradiol 1 mg tablet 1 mg PO QDAY tab 05/21/19 [History Confirmed 06/29/19 Last Taken 06/28/19 08:30] fluticasone 250 mcg-salmeterol 50 mcg/dose blistr powdr for inhalation 1 inh INHALATION BID 05/21/19 [History Confirmed 06/29/19 Last Taken 06/28/19 16:30] furosemide 20 mg tablet 20 mg PO QDAY tab 05/21/19 [History Confirmed 06/29/19 Last Taken 06/28/19 08:30] ketoconazole 2 % topical cream 1 applic TOPICAL QDAY 05/21/19 [History Confirmed 05/21/19 Last Taken Unknown] Fluconazole [Diflucan] 100 mg PO DAILY #5 tab 06/27/19 [Rx Confirmed 06/29/19 Last Taken 06/28/19 08:30] Acetaminophen [Pain Reliever] 1,000 mg PO TID 06/29/19 [History Confirmed 06/29/19 Last Taken 06/28/19 16:30] Medical - DS: Hosp Hospital Course: Discharge diagnosis * Acute hyperkalemia -clinically resolved now down from 7.3 to 4. Managed per nephrology. Off Benicar/spironolactone/Uloric as per nephrology recommendations * Acute on chronic disease with prerenal azotemia greater than 100, clinically resolved now at baseline * Weakness and fatigue secondary to overdiuresis. Clinically improving with crystalloids, continue PT OT/nutrition support * Acute gout flare-improved with steroids * Hypertension continue outpatient follow-up with nephrology. Hold Benicar/spironolactone as per nephrology Brief hospital course Ms. Holloway is a 83 year old F with known history of chronic kidney disease stage III, lower external lymphedema who presents to the ER with progressive weakness/fatigue. During initial evaluation in the ER work-up was consistent with hyperkalemia at 7.3, BUN over 100, patient was promptly started on hyperkalemia protocol and nephrology was consulted. Subsequently hospitalist service was requested for admission At the time of my evaluation patient is alert and oriented. She denies recent NSAID intake or changes in medication. She has been on spironolactone/ARB. She also has been on diuretic for lower extremity swelling which in the recent past has been oozing fluid due to extensive lymphedema however with diuretics her symptoms have improved and lymphedema has since been in control. She denies lightheadedness dizziness, fever, diarrhea, dysuria. She was recently diagnosed with UTI. She regularly follows up with nephrology for management of CKD. She endorses to loss of appetite. She has not been able to function over the last couple of days due to profound weakness and lethargy. 06/30-patient doing well. Potassium down to 4.9. Creatinine down from 2-1.2 with BUN downtrending from 102-48. Managed per nephrology. Improved fatigue , ongoing PT OT. Tolerating diet. Nephrology optimizing medication management. Anticipate discharge in 24 hours 07/01-patient doing well. No overnight events. No concerns per staff. Renal function improved. Hyperkalemia resolved. Acute gout flare much improved on Medrol Dosepak. As per recommendation nephrology patient discharging with outpatient follow-up with nephrology. Hold Benicar/spironolactone/Uloric until follow-up with nephrology. Discharge diagnosis: . - Time Spent with Patient Total time spent providing and/or coordinating discharge services: Greater than 30 minutes Medical - DS: Exam - Constitutional Vitals: Vital Signs Temp Pulse Resp BP Pulse Ox 07/01/19 07:05 97 F 20 169/84 97 07/01/19 03:44 66 18 154/88 96 07/01/19 00:00 97.3 F 66 17 169/82 94 06/30/19 20:00 97.5 F 68 18 152/82 96 06/30/19 16:00 97.3 F 64 16 137/72 96 Intake and Output 06/30/19 07/01/19 07/01/19 21:59 05:59 13:59 Intake Total 200 Output Total 400 550 50 Balance -400 -350 -50 Intake: Oral 200 Output: Void Amount 400 550 50 Other: Urine Appearance Clear Clear Urine Color Pale Pale Weight 212 lb 7 oz Medical - DS: Data Labs on day of discharge: Labs from last 24 hours 07/01/19 07/01/19 06/30/19 04:50 04:50 11:45 WBC 7.0 RBC 3.64 Hgb 10.7 L Hct 33.1 L MCV 90.9 MCH 29.4 MCHC 32.3 RDW 15.0 H Plt Count 125 L MPV 10.2 Total Counted 100 Seg Neutrophils % 84 H Band Neutrophils % Not Reportable Lymphocytes % 10 L Monocytes % (Manual) 5 Reactive Lymphocytes 1 Platelet Estimate Decreased RBC Morphology Abnorm A Anisocytosis Few A Sodium 140 Potassium 4.9 Chloride 103 Carbon Dioxide 23 Anion Gap 14.0 BUN 44 H Creatinine 1.3 H GFR Calculation 37 Glucose 170 H Uric Acid 5.6 Calcium 8.8 Phosphorus 3.5 Magnesium 2.0 Total Bilirubin 0.3 Direct Bilirubin < 0.2 GGT 268 H AST 45 H ALT 39 Alkaline Phosphatase 39 Lactate Dehydrogenase 344 H Total Protein 6.2 Albumin 3.5 Globulin 2.7 Albumin/Globulin Ratio 1.3 Triglycerides 58 Ur Random Creatinine 90.1 U Random Total Protein 11 Ur Random Sodium 79 Medical - DS: A/P - Patient/Caregiver Discharge Instructions Activity: increase activity as tolerated Diet: Renal Additional Instructions: follow up at wound clinic after discharge for wound care. Follow-up nephrology in 1 week Hold Benicar/Uloric/spironolactone - Problem Maintenance (1) Hyperkalemia Status: Acute - Follow up Plan Follow up with: Haile Montgomery MD [Physician] - (Please call to schedule an appointment.) Don Spencer MD [Physician] - 07/09/19 9:00 am (Please check in @ 8:45 am) Yohana Feliciano MD [Primary Care Provider] - 07/09/19 11:45 am Disposition: Home, Self-Care Care Plan Goals: This discharge packet is provided to you to help keep you informed about your care. We want to ensure you get everything you need when you go home. You will also be receiving a call from us in a few days to follow up with you and see how you are doing since your discharge. This gives us a chance to listen to any concerns you maybe experiencing since you were discharged or any additional needs you may have, as well as providing us feedback on your care experience. We strive to always provide excellent care and thank you for your feedback and for choosing [facility]. Prognosis: Serious Rehab Potential: Fair I certify that the patient requires SNF services: No Overall status at discharge: patient is progressing back to baseline Medical - DS: Qual - VTE Deep Vein Thrombosis/Pulmonary Embolism Present on Admission: No
--- NOTE | 2019-07-01 13:53 | Nephrology Progress Note ---
Subjective Patient information: Note initiated : 07/01/19 at 1:50 pm Service Date, if different from initiated Date: [] Patient: Idalia Holloway 83 y/o F admitted on 06/29/19 for Decreased Heart Rate. Chief Complaint: [] Principal diagnosis: Acute on Chronic CHF, hyperkalemia, acidosis Interval history: CKD 3 ARF improved Still with edema so using FUROSEMIDE 20 mg po BID Stop olsartan and aldactone Uric acid 5 so hold uloric as well Has pain in back of right ankle /acchiles tendon Avoid floxins, bactrim and RAASI therapy for now Laboratory Tests 06/30/19 06/30/19 07/01/19 04:46 11:45 04:50 WBC 7.0 Hgb 10.7 L Hct 33.1 L Plt Count 125 L Sodium Potassium Chloride Carbon Dioxide BUN Creatinine GFR Calculation Glucose Uric Acid Calcium Phosphorus Magnesium Total Bilirubin GGT AST ALT Alkaline Phosphatase Lactate Dehydrogenase NT-Pro-B Natriuret Pep 893.4 H Total Protein Albumin Globulin Albumin/Globulin Ratio Ur Random Creatinine 90.1 U Random Total Protein 11 Ur Random Sodium 79 07/01/19 04:50 WBC Hgb Hct Plt Count Sodium 140 Potassium 4.9 Chloride 103 Carbon Dioxide 23 BUN 44 H Creatinine 1.3 H GFR Calculation 37 Glucose 170 H Uric Acid 5.6 Calcium 8.8 Phosphorus 3.5 Magnesium 2.0 Total Bilirubin 0.3 GGT 268 H AST 45 H ALT 39 Alkaline Phosphatase 39 Lactate Dehydrogenase 344 H NT-Pro-B Natriuret Pep Total Protein 6.2 Albumin 3.5 Globulin 2.7 Albumin/Globulin Ratio 1.3 Ur Random Creatinine U Random Total Protein Ur Random Sodium Pertinent ROS: nothing new Additional PMFSH (Level 3 Only): N/A Objective - Vital Signs Vital signs: Vital Signs Temp Pulse Resp BP Pulse Ox 07/01/19 07:05 36.1 C 20 169/84 97 07/01/19 03:44 66 18 154/88 96 07/01/19 00:00 36.3 C 66 17 169/82 94 06/30/19 20:00 36.4 C 68 18 152/82 96 06/30/19 16:00 36.3 C 64 16 137/72 96 Intake and Output 06/30/19 07/01/19 07/01/19 21:59 05:59 13:59 Intake Total 200 Output Total 400 550 50 Balance -400 -350 -50 Intake: Oral 200 Output: Void Amount 400 550 50 Other: Urine Appearance Clear Clear Urine Color Pale Pale Weight 96.36 kg Intake & Output: Intake & Output 06/30/19 07/01/19 07/01/19 21:59 05:59 13:59 Intake Total 200 Output Total 400 550 50 Balance -400 -350 -50 Weight 96.36 kg Intake: Oral 200 Output: Void Amount 400 550 50 Other: Urine Appearance Clear Clear Urine Color Pale Pale - General Appearance General appearance: well-nourished, appears started age, obese EENT: ATNC, PERRL, mucous membranes moist Neck: no JVD, no carotid bruit Respiratory: kyphosis Cardiology: no rub, no gallops, edema, regular rate, regular rhythm Gastrointestinal: normoactive bowel sounds, no tenderness Integumentary: warm and dry Neurologic: no focal deficit, no asterixis, alert and oriented x3 Musculoskeletal: erythema Psychiatric: mood/affect appropriate - Lab 07/01/19 04:50 07/01/19 04:50 Most recent lab results Calcium 8.8 mg/dl (8.6-10.4) 07/01/19 04:50 Phosphorus 3.5 mg/dL (2.7-4.5) 07/01/19 04:50 Magnesium 2.0 mg/dL (1.6-2.5) 07/01/19 04:50 Assessment and Plan (1) Acute prerenal azotemia 1. Back to baseline GFR 2. RAASI Tx not needed 3. Start BID furosemide 20 mg po 4. Home today 5. Follow up in 1 week Status: Acute Priority: High (2) Bradycardia 1. Resolved with tx of hyperkalemia Status: Acute Priority: High (3) Hyperkalemia 1. Avoid Dual RAASI therapy 2. No Olsartan on spironolactone for now Status: Acute Priority: High (4) Hyponatremia 1. Avoid diuretic combos 2. Oral fluid restrict 1500 cc 3. Continue salt restricted diet - no NuSalt or LoSalt substitues as KCl present Status: Acute Priority: High (5) Hypertensive renal disease 1. BP adequately controlled 2. Lasix and sodium restricted diet for now 3. No amlodipine of nifedipine 4. Will need Rx as outpatient, no absolute need for RAASI based on ECHO Status: Chronic Priority: Medium (6) CHF (congestive heart failure) 1. No echocardiographic evidence of decrease LV or RV function, pulmonary HTN of diastolic dysfunction 2. Edema may relate to salt loading Status: Acute Priority: High Qualifiers: Heart failure type: unspecified Heart failure chronicity: acute on chronic Qualified Code(s): I50.9 - Heart failure, unspecified - Narrative A/P Narrative: 1, Home on lasix 29 mg BID 2. Stop aldactone, benicare and uloric 3. F/u with labs in 1 week
== END 2019-07-01 14:53 | disposition home or self-care (01) | DRG 641 ==
LOC: ED 17:56 → ICU 06-29 03:00
PROVIDERS: ADMIT Internal Medicine; ATTEND Internal Medicine

== ENCOUNTER 2020-04-11 09:09 | Inpatient (IN) ==
[2020-04-11] MEDS ORDERED: LACTATED RINGERS 1,000 ML IV SCH (09:30)
--- NOTE | 2020-04-11 09:40 | Emergency Department Note ---
Weakness HPI General Chief complaint: Weakness Stated complaint: Covid positive, weakness, sob Time Seen by Provider: 04/11/20 09:26 Source: patient, EMS and RN notes reviewed Mode of arrival: EMS Limitations: no limitations History of Present Illness HPI Narrative: Narrative: This patient was here 3 days ago and tested positive for Covid. Her work-up was reassuring and she was able to go home that day. Since then she has had some increased generalized weakness and slight increased difficulty breathing with co ugh. Also persisting fever and aches and pains in general. Diarrhea has stopped and she has no nausea. She says she has been eating and drinking well at home. Her O2 saturation here was in the high 80s on room air and 94 on 2 L of oxygen. MD Complaint: generalized weakness Onset (ago): day(s) Duration: constant Location: generalized Severity: moderate Improves with: none Worsens with: none Context: recent illness Associated symptoms: Reports fever/chills, myalgias and shortness of breath Related Data Home Medications Medication Instructions Recorded Confirmed omeprazole 20 mg capsule,delayed 20 mg PO QDAY cap 03/09/15 04/09/20 release Cholesterol Formula 2 cap PO BID 03/31/15 04/09/20 Flexcin 1 tab PO DAILY 03/31/15 11/19/19 lactobacillus combination no.8 1 PO DAILY 03/31/15 11/19/19 Lou-C tablet 1 tab PO DAILY 08/13/17 11/19/19 calcium mag d3 See Rx Instructions PO DAILY 08/13/17 11/19/19 garlic lecthin PO BID 08/13/17 11/19/19 sennosides 8.6 mg tablet 25.8 mg PO QDAY tab 01/09/18 11/19/19 One Daily Womens 50 Plus Tab 1 tab PO DAILY 02/21/19 11/19/19 estradiol 1 mg tablet 1 mg PO QDAY tab 05/21/19 04/09/20 fluticasone 250 mcg-salmeterol 50 1 inh INHALATION BID 05/21/19 04/09/20 mcg/dose blistr powdr for inhalation ketoconazole 2 % topical cream 1 applic TOPICAL QDAY 05/21/19 04/09/20 acetaminophen 1,000 mg PO BID 06/29/19 04/09/20 furosemide See Rx Instructions .ROUTE .COMPLEX 04/09/20 04/09/20 Previous Rx's Medication Instructions Recorded fluconazole 100 mg PO DAILY #5 tab 06/27/19 methylprednisolone 1 packet PO UD #1 tab 07/01/19 prednisone 5 mg tablet See Rx Instructions .ROUTE 07/19/19 .COMPLEX #90 tab febuxostat 80 mg tablet 80 mg PO QDAY #90 tab 09/13/19 methylprednisolone 4 mg tablets in See Rx Instructions PO PER PKG DIR 11/19/19 a dose pack #21 tab Allergies Allergy/AdvReac Type Severity Reaction Status Date / Time MONTY Inhibitors Allergy Unknown Unknown Verified 04/11/20 09:10 albuterol Allergy Unknown Unknown Verified 04/11/20 09:10 [From Proventil HFA] allopurinol Allergy Unknown Unknown Verified 04/11/20 09:10 Beta-Blockers Allergy Unknown Unknown Verified 04/11/20 09:10 (Beta-Adrenergic Bloc Calcium Channel Blocking Allergy Unknown Unknown Verified 04/11/20 09:10 Agents-Chetan Carbetapentane Allergy Unknown Unknown Verified 04/11/20 09:10 [From Carba-XP] cetirizine [From Zyrtec] Allergy Unknown Unknown Verified 04/11/20 09:10 clonidine Allergy Unknown Unknown Verified 04/11/20 09:10 colchicine Allergy Unknown Unknown Verified 04/11/20 09:10 doxazosin [From Cardura] Allergy Unknown Unknown Verified 04/11/20 09:10 doxycycline Allergy Unknown Unknown Verified 04/11/20 09:10 epoxy resin Allergy Unknown Unknown Verified 04/11/20 09:10 formaldehyde Allergy Unknown Unknown Verified 04/11/20 09:10 guaifenesin [From Carba-XP] Allergy Unknown Unknown Verified 04/11/20 09:10 hydrochlorothiazide Allergy Unknown Unknown Verified 04/11/20 09:10 [From Maxzide] iodine Allergy Unknown Unknown Verified 04/11/20 09:10 isradipine [From DynaCirc] Allergy Unknown Unknown Verified 04/11/20 09:10 methocarbamol Allergy Unknown Unknown Verified 04/11/20 09:10 NSAIDS (Non-Steroidal Allergy Unknown Unknown Verified 04/11/20 09:10 Anti-Inflamma Opioids - Morphine Analogues Allergy Unknown Unknown Verified 04/11/20 09:10 Penicillins Allergy Unknown Unknown Verified 04/11/20 09:10 potassium Allergy Unknown Unknown Verified 04/11/20 09:10 salmeterol [From Serevent] Allergy Unknown Unknown Verified 04/11/20 09:10 Jzsiaok-Afn-Hgk Reductase Allergy Unknown Unknown Verified 04/11/20 09:10 Inhibitor Terazosin [From Hytrin] Allergy Unknown Unknown Verified 04/11/20 09:10 theophylline Allergy Unknown Unknown Verified 04/11/20 09:10 Triamterene [From Maxzide] Allergy Unknown Unknown Verified 04/11/20 09:10 levofloxacin Allergy Verified 04/11/20 09:10 Review of Systems ROS ROS Narrative: Narrative: All systems ED: reviewed and negative except as stated. [facility] Narrative Patient History Narrative: Narrative: Medical/Surgical/Family History All Active Problems (Updated 04/11/20 @ 12:41 by Tam Cameron MD) COVID-19 virus detected (Acute) 2019 novel coronavirus–infected pneumonia (NCIP)#8211;infected pneumonia (NCIP) (Acute) Hyperkalemia (Acute) Acute prerenal azotemia (Acute) Bradycardia (Acute) Hyponatremia (Acute) CHF (congestive heart failure) (Acute) Bilateral lower extremity edema (Chronic) CKD (chronic kidney disease), stage III (Chronic) Chronic ulcer of right leg (Chronic) Encounter for wound care (Chronic) Candidiasis of female genitalia (Acute) Hypertension, essential (Chronic) Hypertensive renal disease (Chronic) CKD (chronic kidney disease), stage III (Chronic) Hyperlipidemia (Chronic) Noninfected skin tear of left leg (Chronic) senior care (current) use of systemic steroids (Acute) Gout (Acute) Hyperuricemia (Chronic) Encounter for long-term (current) use of high-risk medication (Acute) Hormone replacement therapy (Chronic) GERD (gastroesophageal reflux disease) (Chronic) Asthma (Chronic) History of pneumonia (Chronic) Raynaud's syndrome (Chronic) Osteoarthritis (Chronic) Dysuria (Chronic) Medical History (Updated 04/11/20 @ 12:41 by Tam Cameron MD) Asthma (Chronic) Bilateral lower extremity edema (Chronic) Multifactorial but certainly venous insufficiency is playing a role 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) Chronic ulcer of right leg (Chronic) CKD (chronic kidney disease), stage III (Chronic) Stable and probably due to hypertension and/or hyperuricemia CKD (chronic kidney disease), stage III (Chronic) Preserved LVEF with no diastolic dysfunction No significant proteinuria No cirrhotic physiology Requires diuretics to keep lower extremity edema under some degree of control Overdiuresis leads to worsening GFR and flares of the gout Dysuria (Chronic) Encounter for long-term (current) use of high-risk medication (Acute) GERD (gastroesophageal reflux disease) (Chronic) Gout (Acute) History of pneumonia (Chronic) Hormone replacement therapy (Chronic) Hyperkeratosis (Inactive) Hyperlipidemia (Chronic) Hypertension, essential (Chronic) well controlled ct olemsartan and spironolactone follow low sodium diet Hypertensive renal disease (Chronic) Hyperuricemia (Chronic) senior care (current) use of systemic steroids (Acute) Metatarsalgia (Inactive) Noninfected skin tear of left leg (Chronic) Osteoarthritis (Chronic) Porokeratosis (Inactive) Raynaud's syndrome (Chronic) Tailor's bunion (Inactive) Tophaceous gout (Inactive) Intolerant of colchicine and allopurinol Tolerates Uloric at 80 mg a day Prednisone for acute flare of the gout and to decrease inflammation Urinary tract infection (Resolved) Surgical History History of adenoidectomy (Chronic) History of appendectomy (Chronic) History of hysterectomy (Chronic) History of tonsillectomy (Chronic) Social History Smoking Status: Never smoker Alcohol Intake Frequency: does not drink Substance Use: does not use Exam Narrative Narrative: Narrative: General Limitations: no limitations Head Head: Present atraumatic, normocephalic and normal inspection Eye Eye: Present normal appearance and EOMI; Absent scleral icterus and conjunctival injection ENT ENT: Present normal exam, normal oropharynx and mucous membranes dry Neck Neck: Present normal inspection and full ROM Chest Chest: Present normal inspection and symmetric chest wall rise Respiratory Respiratory: Present normal lung sounds bilaterally; Absent respiratory distress, rales/crackles and wheezes Cardiovascular Cardiovascular: Present regular rate, normal rhythm and normal heart sounds Adbominal Abdominal: Present soft; Absent distention and tenderness Extremities Extremities: Present normal inspection and full ROM; Absent pedal edema and pretibial edema Neurological Neurological: Present alert Psychiatric Psychiatric: Present normal affect Skin Skin: Present warm (WNL) and dry; Absent diaphoresis Course Vital Signs Vital signs: Vital Signs Temperature 98.2 F 04/11/20 09:10 Pulse Rate 74 04/11/20 09:10 Respiratory Rate 18 04/11/20 09:10 Blood Pressure 124/59 04/11/20 09:10 Pulse Oximetry (%) 91 04/11/20 09:10 Temperature 98.2 F 04/11/20 09:10 Pulse Rate 72 04/11/20 12:01 Respiratory Rate 19 04/11/20 12:16 Blood Pressure 133/63 04/11/20 12:16 Pulse Oximetry (%) 90 04/11/20 12:01 MDM MDM Narrative Medical decision making narrative: Narrative: Patient was given Rocephin Zithromax and Decadron. I discussed the case with the hospitalist Dr. Jane and she will be admitted to the hospital. Lab Data Lab results reviewed: Yes I reviewed the patient's lab results. Lab results narrative: Lactic acid was elevated at 2.4. Result diagrams: 04/11/20 10:00 04/11/20 09:59 Labs: Lab Results 04/11/20 04/11/20 04/11/20 Range/Units 09:59 10:00 10:00 WBC 3.5 L (4.5-11.0) K/mcL RBC 4.24 (4.00-5.20) M/mcL Hgb 11.3 L (12.0-15.0) g/dL Hct 36.1 (36.0-48.0) % MCV 85.1 (80.0-100.0) fL MCH 26.7 (26.0-34.0) pg MCHC 31.3 (31.0-36.0) g/dL RDW 16.5 H (11.5-14.5) % Plt Count 110 L (140-440) K/mcL MPV 9.2 (7.4-10.4) fL Neut % (Auto) 65.5 (38.0-78.0) % Lymph % (Auto) 23.9 (15.0-49.0) % [place] % (Auto) 10.3 (1.0-12.0) % Eos % (Auto) 0.3 (0.0-7.0) % Baso % (Auto) 0 (0.0-2.0) % Lymph # (Auto) 0.84 L (1.50-4.80) K/mcL [place] # (Auto) 0.36 (0.10-0.90) K/mcL Eos # (Auto) 0.01 (0.00-0.70) K/mcL Baso # (Auto) 0 (0.00-0.20) K/mcL Absolute Neutrophils 2.30 (1.80-8.00) K/mcL VBG Lactic Acid 2.4 H (0.5-2.0) mmol/L Sodium 134 (133-145) mmol/L Potassium 3.1 L (3.3-5.1) mmol/L Chloride 96 (96-108) mmol/L Carbon Dioxide 26 (22-30) mmol/L Anion Gap 12.0 (8.0-16.0) BUN 16 (8-23) mg/dL Creatinine 0.9 (0.6-1.1) mg/dL GFR Calculation 58 Glucose 217 H (70-105) mg/dL Calcium 8.3 L (8.6-10.4) mg/dL Total Bilirubin 0.4 (0.1-1.0) mg/dL AST 89 H (<32) U/L ALT 42 H (<40) U/L Alkaline Phosphatase 66 (39-117) U/L NT-Pro-B Natriuret Pep 117.1 (<450.0) pg/mL Total Protein 6.2 (5.9-8.4) gm/dL Albumin 3.1 L (3.2-5.2) gm/dL Globulin 3.1 (2.2-3.7) gm/dL Albumin/Globulin Ratio 1.0 (1.0-2.3) Radiology Data Radiology results reviewed: Yes I reviewed the patient's radiology results. Radiology results narrative: Chest x-ray now is consistent with Covid pneumonia it was -3 days ago Discharge Plan Patient/Caregiver Discharge Instructions Pt seen by [employer]ER/PA only: No Clinical Impression: 2019 novel coronavirus–infected pneumonia (NCIP)#8211;infected pneumonia (NCIP) Patient Disposition: Xfer As Inpt ([facility]) Follow up with: Yohana Feliciano MD [Primary Care Provider] - Prescriptions: No Action prednisone 5 mg tablet See Rx Instructions .ROUTE .COMPLEX Qty: 90 RF: 0 omeprazole 20 mg capsule,delayed release(DR/EC) 20 mg PO QDAY RF: 0 Adult Probiotic 1 PO DAILY RF: 0 Cholesterol Formula capsule 2 cap PO BID RF: 0 Flexcin capsule 1 tab PO DAILY RF: 0 sennosides 8.6 mg tablet 25.8 mg PO QDAY RF: 0 Lou-C tablet tablet 1 tab PO DAILY RF: 0 calcium mag d3 See Rx Instructions PO DAILY RF: 0 garlic lecthin capsule PO BID RF: 0 estradiol 1 mg tablet 1 mg PO QDAY RF: 0 fluticasone propion-salmeterol [Advair Diskus] 250-50 mcg/dose blister with device 1 inh INHALATION BID RF: 0 ketoconazole 2 % cream 1 applic TOPICAL QDAY RF: 0 methylprednisolone [Medrol (Andrei)] 4 mg tablets,dose pack See Rx Instructions PO PER PKG DIR Qty: 21 RF: 1 febuxostat 80 mg tablet 80 mg PO QDAY Qty: 90 RF: 3 One Daily Womens 50 Plus Tab 1 tab PO DAILY RF: 0 fluconazole 100 MG tablet 100 mg PO DAILY Qty: 5 RF: 0 acetaminophen 500 MG tablet 1,000 mg PO BID RF: 0 methylprednisolone 1 PACKET tablet 1 packet PO UD Qty: 1 RF: 0 furosemide 20 mg tablet See Rx Instructions .ROUTE .COMPLEX RF: 0
[2020-04-11] MEDS ORDERED: AZITHROMYCIN 500 MG in DEXTROSE 5% IN WATER 250 ML IV ONE (10:14)
[2020-04-11] MEDS ORDERED: cefTRIAXone 1 GM VIAL IV ONE (10:14)
--- NOTE | 2020-04-11 10:17 | XRay Report ---
INDICATION: sob TECHNIQUE: AP portable semiupright chest x-ray COMPARISON: Previous chest x-rays dated 04/09/2020, 06/28/2019, 02/21/2019 FINDINGS: Lungs:There are bilateral pulmonary parenchymal infiltrates. These are interstitial in nature. They're predominantly in the upper lobes although there is left lower lobe abnormality. Findings are nonspecific, but Covid pneumonia is possible. No parenchymal consolidation. No parenchymal mass Heart, vascular:No significant cardiomegaly. Pulmonary vascularity is normal. No pulmonary edema or pulmonary congestion Mediastinum, sasha:No mediastinal widening. No hilar mass Pleura:No pleural fluid. No pleural-based mass or calcification Skeletal:Negative. IMPRESSION: 1. Bilateral interstitial infiltrates. 2. Findings are consistent with pneumonia and Covid should be considered 3. Infiltrates are new since 04/09/2020 Interpreted and Authenticated by: Jovon Merrill 04/11/20
[2020-04-11 10:45] LABS: Basophils # (Auto) 0 K/mcL (0.00-0.20); Basophils % (Auto) 0 % (0.0-2.0); Eosinophils # (Auto) 0.01 K/mcL (0.00-0.70); Eosinophils % (Auto) 0.3 % (0.0-7.0); Hematocrit 36.1 % (36.0-48.0); Hemoglobin 11.3 g/dL (12.0-15.0); Lymphocytes # (Auto) 0.84 K/mcL (1.50-4.80); Lymphocytes % (Auto) 23.9 % (15.0-49.0); Mean Cell Volume 85.1 fL (80.0-100.0); Mean Corpuscular HGB Conc 31.3 g/dL (31.0-36.0); Mean Platelet Volume 9.2 fL (7.4-10.4); Monocytes # (Auto) 0.36 K/mcL (0.10-0.90); Monocytes % (Auto) 10.3 % (1.0-12.0); Neutrophils % (Auto) 65.5 % (38.0-78.0); Platelet Count 110 K/mcL (140-440); RBC 4.24 M/mcL (4.00-5.20); Red Cell Distribution Width 16.5 % (11.5-14.5); WBC 3.5 K/mcL (4.5-11.0)
[2020-04-11 11:04] LABS: ALT/SGPT 42 U/L (<40); AST/SGOT 89 U/L (<32); Albumin 3.1 gm/dL (3.2-5.2); Alkaline Phosphatase 66 U/L (39-117); Bilirubin,Total 0.4 mg/dL (0.1-1.0); Blood Urea Nitrogen 16 mg/dL (8-23); Calcium 8.3 mg/dL (8.6-10.4); Carbon Dioxide 26 mmol/L (22-30); Chloride 96 mmol/L (96-108); Globulin 3.1 gm/dL (2.2-3.7); Glomerular Filtration Rate 58; Glucose 217 mg/dL (70-105); proBNP 117.1 pg/mL (<450.0)
[2020-04-11] MEDS ORDERED: DEXAMETHASONE 10 MG/ML VIAL IV ONE (12:39)
--- NOTE | 2020-04-11 12:57 | Internal Med History&Physical ---
HPI History of Present Illness Patient information: Note initiated : 04/11/20 at 12:57 pm Service Date, if different from initiated Date: [] Patient: Idalia Holloway a 84 y/o F admitted on for Covid positive, weakness, sob. Chief Complaint: S OB/weakness History of present illness: Ms. Holloway is a 84 year old F with a history of gout/GERD/CKD stage III/CHF who presents to the ER with 5 days onset of worsening weakness/shortness of breath. Patient was evaluated in the ER 2 days ago and was diagnosed with Covid. However patient was stable enough to be discharged and was advised to continue self quarantine at home. Over the ensuing 72 hours she noted increasing dyspnea/oxygen requirement, worsening weakness malaise fever. Initial work-up in the ER was consistent with bilateral chest infiltrates suggestive of Covid pneumonia with profound hypoxia requiring 5 L oxygen. Patient was started on dexamethasone. Hospital service was consulted At the time of my evaluation patient is alert and oriented. She is able to talk in full sentences. She is moderately short of breath. Endorses to the daughter being sick with upper respiratory symptoms. Denies travel. Denies changes in medications. Denies weight gain, bloody stool, diarrhea, dysuria, headache myalgias photophobia Review of systems 10 point review system was performed and is negative except for ones discussed above PFSH PFSH All Active Problems (Updated 04/11/20 @ 12:41 by Tam Cameron MD) COVID-19 virus detected (Acute) 2019 novel coronavirus–infected pneumonia (NCIP)#8211;infected pneumonia (NCIP) (Acute) Hyperkalemia (Acute) Acute prerenal azotemia (Acute) Bradycardia (Acute) Hyponatremia (Acute) CHF (congestive heart failure) (Acute) Bilateral lower extremity edema (Chronic) CKD (chronic kidney disease), stage III (Chronic) Chronic ulcer of right leg (Chronic) Encounter for wound care (Chronic) Candidiasis of female genitalia (Acute) Hypertension, essential (Chronic) Hypertensive renal disease (Chronic) CKD (chronic kidney disease), stage III (Chronic) Hyperlipidemia (Chronic) Noninfected skin tear of left leg (Chronic) rn cvicu (current) use of systemic steroids (Acute) Gout (Acute) Hyperuricemia (Chronic) Encounter for long-term (current) use of high-risk medication (Acute) Hormone replacement therapy (Chronic) GERD (gastroesophageal reflux disease) (Chronic) Asthma (Chronic) History of pneumonia (Chronic) Raynaud's syndrome (Chronic) Osteoarthritis (Chronic) Dysuria (Chronic) Medical History (Updated 04/11/20 @ 12:41 by Tam Cameron MD) Asthma (Chronic) Bilateral lower extremity edema (Chronic) Multifactorial but certainly venous insufficiency is playing a role 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) Chronic ulcer of right leg (Chronic) CKD (chronic kidney disease), stage III (Chronic) Stable and probably due to hypertension and/or hyperuricemia CKD (chronic kidney disease), stage III (Chronic) Preserved LVEF with no diastolic dysfunction No significant proteinuria No cirrhotic physiology Requires diuretics to keep lower extremity edema under some degree of control Overdiuresis leads to worsening GFR and flares of the gout Dysuria (Chronic) Encounter for long-term (current) use of high-risk medication (Acute) GERD (gastroesophageal reflux disease) (Chronic) Gout (Acute) History of pneumonia (Chronic) Hormone replacement therapy (Chronic) Hyperkeratosis (Inactive) Hyperlipidemia (Chronic) Hypertension, essential (Chronic) well controlled ct olemsartan and spironolactone follow low sodium diet Hypertensive renal disease (Chronic) Hyperuricemia (Chronic) snf (current) use of systemic steroids (Acute) Metatarsalgia (Inactive) Noninfected skin tear of left leg (Chronic) Osteoarthritis (Chronic) Porokeratosis (Inactive) Raynaud's syndrome (Chronic) Tailor's bunion (Inactive) Tophaceous gout (Inactive) Intolerant of colchicine and allopurinol Tolerates Uloric at 80 mg a day Prednisone for acute flare of the gout and to decrease inflammation Urinary tract infection (Resolved) Surgical History History of adenoidectomy (Chronic) History of appendectomy (Chronic) History of hysterectomy (Chronic) History of tonsillectomy (Chronic) Social History smoking status: Never smoker alcohol intake frequency: does not drink substance use type: does not use MEDS/ALLERGIES Home Medications and Allergies Home Medications Medication Instructions Recorded Confirmed Type omeprazole 20 mg capsule,delayed 20 mg PO QDAY cap 03/09/15 04/11/20 History release estradiol 1 mg tablet 1 mg PO QDAY tab 05/21/19 04/11/20 History febuxostat [Uloric] 80 mg PO QDAY 04/11/20 04/11/20 History fluticasone propion-salmeterol 1 inh INHALATION Q12H 04/11/20 04/11/20 History [Advair Diskus] furosemide [Lasix] 20 mg PO BID 04/11/20 04/11/20 History prednisone 5 mg PO DAILY 04/11/20 04/11/20 History sennosides [senna] 17.2 mg PO QHS 04/11/20 04/11/20 History Allergies Allergy/AdvReac Type Severity Reaction Status Date / Time MONTY Inhibitors Allergy Unknown Unknown Verified 04/11/20 09:10 albuterol Allergy Unknown Unknown Verified 04/11/20 09:10 [From Proventil HFA] allopurinol Allergy Unknown Unknown Verified 04/11/20 09:10 Beta-Blockers Allergy Unknown Unknown Verified 04/11/20 09:10 (Beta-Adrenergic Bloc Calcium Channel Blocking Allergy Unknown Unknown Verified 04/11/20 09:10 Agents-Chetan Carbetapentane Allergy Unknown Unknown Verified 04/11/20 09:10 [From Carba-XP] cetirizine [From Zyrtec] Allergy Unknown Unknown Verified 04/11/20 09:10 clonidine Allergy Unknown Unknown Verified 04/11/20 09:10 colchicine Allergy Unknown Unknown Verified 04/11/20 09:10 doxazosin [From Cardura] Allergy Unknown Unknown Verified 04/11/20 09:10 doxycycline Allergy Unknown Unknown Verified 04/11/20 09:10 epoxy resin Allergy Unknown Unknown Verified 04/11/20 09:10 formaldehyde Allergy Unknown Unknown Verified 04/11/20 09:10 guaifenesin [From Carba-XP] Allergy Unknown Unknown Verified 04/11/20 09:10 hydrochlorothiazide Allergy Unknown Unknown Verified 04/11/20 09:10 [From Maxzide] iodine Allergy Unknown Unknown Verified 04/11/20 09:10 isradipine [From DynaCirc] Allergy Unknown Unknown Verified 04/11/20 09:10 methocarbamol Allergy Unknown Unknown Verified 04/11/20 09:10 NSAIDS (Non-Steroidal Allergy Unknown Unknown Verified 04/11/20 09:10 Anti-Inflamma Opioids - Morphine Analogues Allergy Unknown Unknown Verified 04/11/20 09:10 Penicillins Allergy Unknown Unknown Verified 04/11/20 09:10 potassium Allergy Unknown Unknown Verified 04/11/20 09:10 salmeterol [From Serevent] Allergy Unknown Unknown Verified 04/11/20 09:10 Vmhszlq-Qik-Mog Reductase Allergy Unknown Unknown Verified 04/11/20 09:10 Inhibitor Terazosin [From Hytrin] Allergy Unknown Unknown Verified 04/11/20 09:10 theophylline Allergy Unknown Unknown Verified 04/11/20 09:10 Triamterene [From Maxzide] Allergy Unknown Unknown Verified 04/11/20 09:10 levofloxacin Allergy Verified 04/11/20 09:10 EXAM Constitutional Vitals: Temp Pulse Resp BP Pulse Ox 98.2 F 72 19 133/63 90 04/11/20 09:10 04/11/20 12:01 04/11/20 12:16 04/11/20 12:16 04/11/20 12:01 Alert and oriented Head normocephalic Oral cavity moist No ear nose discharge Eye movement symmetrical Neck supple no lymphadenopathy S1-S2 regular on cardiac monitor Labored breathing on 5 L oxygen Nondistended nontender abdomen Lower extremity no cyanosis clubbing or joint swelling Skin no suspicious lesion Psych no anxiety, hallucinations, cooperative Neuro normal higher function DATA Data Completed and Pending Labs: Labs from last 24 hours 04/11/20 04/11/20 04/11/20 10:00 10:00 09:59 WBC 3.5 L RBC 4.24 Hgb 11.3 L Hct 36.1 MCV 85.1 MCH 26.7 MCHC 31.3 RDW 16.5 H Plt Count 110 L MPV 9.2 Neut % (Auto) 65.5 Lymph % (Auto) 23.9 [place] % (Auto) 10.3 Eos % (Auto) 0.3 Baso % (Auto) 0 Lymph # (Auto) 0.84 L [place] # (Auto) 0.36 Eos # (Auto) 0.01 Baso # (Auto) 0 Absolute Neutrophils 2.30 VBG Lactic Acid 2.4 H Sodium 134 Potassium 3.1 L Chloride 96 Carbon Dioxide 26 Anion Gap 12.0 BUN 16 Creatinine 0.9 GFR Calculation 58 Glucose 217 H Calcium 8.3 L Total Bilirubin 0.4 AST 89 H ALT 42 H Alkaline Phosphatase 66 NT-Pro-B Natriuret Pep 117.1 Total Protein 6.2 Albumin 3.1 L Globulin 3.1 Albumin/Globulin Ratio 1.0 A/P Narrative A/P Narrative: * Covid 19 pneumonia-start remdesivir/dexamethasone. Contact precautions * Hypoxic respiratory failure continue supplemental oxygen. Serial ABG/interval chest imaging/supplemental oxygen. * History of GERD continue PPI * History of reactive disease continue Advair * History of gout continue for Oxistat * Full code * Prophylaxis heparin Plan * Inpatient admission * Remdesivir/dexamethasone * Supplemental oxygen * Interval imaging * Pre-existing medical condition management home meds * Discharge planning Time Spent With Patient Time: Total time spent is greater than 50% in coordination of care (as documented) at patient's floor/unit and/or counseling patient:
[2020-04-11] MEDS ORDERED: BISACODYL 10 MG SUPP.RECT PR PRN (14:47)
[2020-04-11] MEDS ORDERED: POTASSIUM CHLORIDE 40 MEQ in DEXTROSE 5% IN WATER 500 ML IV PRN (14:47)
[2020-04-11] MEDS ORDERED: ONDANSETRON 4 MG/2 ML VIAL IV PRN (14:47)
[2020-04-11] MEDS ORDERED: MAGNESIUM SULFATE 2 GM/50 ML BAG IV PRN (14:47)
[2020-04-11] MEDS ORDERED: MELATONIN 3 MG TABLET PO PRN (14:47)
[2020-04-11] MEDS ORDERED: ONDANSETRON 4 MG ODT TABLET SL PRN (14:47)
[2020-04-11] MEDS ORDERED: ACETAMINOPHEN 650 MG/65 ML BOTTLE IV PRN (14:47)
[2020-04-11] MEDS ORDERED: POLYETHYLENE GLYCOL 3350 17 GM PACKET PO PRN (14:47)
[2020-04-11] MEDS ORDERED: REMDESIVIR 200 MG in 0.9 % SODIUM CHLORIDE 250 ML IV ONE (15:00)
[2020-04-11] MEDS: 0.9 % SODIUM CHLORIDE 10 ML SYRINGE IV SCH ×2 (15:49→21:07)
[2020-04-11 16:21] LABS: Appearance,Urine CLEAR (Clear); Bacteria,Urine MOD /hpf (0); Bilirubin,Urine Negative (Negative); Color,Urine YELLOW; Culture Indicated,Urine yes; Glucose,Urine (UA) 50 mg/dL (Negative); Ketones,Urine Negative (Negative); Leukocyte Esterase,Urine 25 /ug (Negative); Mucus,Urine FEW /hpf; Nitrate,Urine Negative (Negative); Protein,Urine 30 mg/dL (Negative); Specific Gravity,Urine 1.023 (1.000-1.035); Urine Blood Negative (Negative); Urine RBC 0 /hpf (0-1); Urine Squamous Epithelial Cell < 1 /hpf (0-4); Urine WBC 30 /hpf (0-4); Urobilinogen,Urine Negative
[2020-04-11] MEDS ORDERED: hydrALAZINE 20 MG/ML VIAL IV PRN (18:21)
[2020-04-11] MEDS ORDERED: hydrALAZINE 20 MG/ML VIAL ONE (18:47)
[2020-04-11] MEDS: guaiFENesin/CODEINE 10 ML UDC PO PRN ×2 (20:10→23:48)
[2020-04-11] MEDS: DOCUSATE SODIUM 100 MG CAPSULE PO SCH (21:07)
[2020-04-11] MEDS: SENNOSIDES/DOCUSATE SODIUM 1 TAB TABLET PO SCH (21:07)
[2020-04-11] MEDS: HEPARIN 5,000 UNIT/ML VIAL SQ SCH (21:07)
[2020-04-11] MEDS: ACETAMINOPHEN 325 MG TABLET PO PRN (21:45)
[2020-04-12] MEDS: ACETAMINOPHEN 325 MG TABLET PO PRN (01:16)
[2020-04-12] MEDS: 0.9 % SODIUM CHLORIDE 10 ML SYRINGE IV SCH ×2 (04:26→15:01)
[2020-04-12 07:08] LABS: ALT/SGPT 35 U/L (<40); AST/SGOT 74 U/L (<32); Albumin 2.8 gm/dL (3.2-5.2); Alkaline Phosphatase 63 U/L (39-117); Bilirubin,Direct < 0.2 mg/dL (<0.3); Bilirubin,Total 0.4 mg/dL (0.1-1.0); Blood Urea Nitrogen 15 mg/dL (8-23); Calcium 7.9 mg/dL (8.6-10.4); Carbon Dioxide 23 mmol/L (22-30); Chloride 98 mmol/L (96-108); Globulin 2.9 gm/dL (2.2-3.7); Glomerular Filtration Rate 66; Glucose 261 mg/dL (70-105); Lactate Dehydrogenase 366 U/L (135-225); Phosphorous 3.1 mg/dL (2.5-4.5); Triglycerides 73 mg/dL (<150); Uric Acid 4.7 mg/dL (2.5-8.0)
[2020-04-12 07:50] LABS: Band Neutrophils % 1 % (0-10); Hematocrit 37.8 % (36.0-48.0); Hemoglobin 11.6 g/dL (12.0-15.0); Lymphocytes % 28 % (15-49); Mean Cell Volume 86.7 fL (80.0-100.0); Mean Corpuscular HGB Conc 30.7 g/dL (31.0-36.0); Mean Platelet Volume 9.8 fL (7.4-10.4); Monocytes % (Manual) 9 % (1-12); Platelet Count 106 K/mcL (140-440); Platelet Estimate DECREASED (Normal); RBC 4.36 M/mcL (4.00-5.20); Reactive Lymphocytes 3 % (0-2); Red Cell Distribution Width 16.4 % (11.5-14.5); Segmented Neutrophils % 59 % (38-78); WBC 2.2 K/mcL (4.5-11.0)
[2020-04-12 08:04] LABS: Anisocytosis 1+ (None Seen); RBC Morphology ABNORMAL (Normal)
[2020-04-12] MEDS: MULTIVIT,THER IRON,CA,FA & MIN 1 TABLET PO SCH (08:59)
[2020-04-12] MEDS: HEPARIN 5,000 UNIT/ML VIAL SQ SCH ×2 (08:59→20:18)
[2020-04-12] MEDS: DOCUSATE SODIUM 100 MG CAPSULE PO SCH ×2 (09:00→20:18)
[2020-04-12] MEDS: DEXAMETHASONE 4 MG TABLET PO SCH (09:00)
--- NOTE | 2020-04-12 11:10 | Internal Med Progress Note ---
SUBJECTIVE Subjective Patient information: Note initiated : 04/12/20 at 11:08 am Service Date, if different from initiated Date: [] Patient: Idalia Holloway a 84 y/o F admitted on 04/11/20 for Covid positive, weakness, sob. Chief Complaint: History of present illness: Ms. Holloway is a 84 year old F with a history of gout/GERD/CKD stage III/CHF who presents to the ER with 5 days onset of worsen ing weakness/shortness of breath. Patient was evaluated in the ER 2 days ago and was diagnosed with Covid. However patient was stable enough to be discharged and was advised to continue self quarantine at home. Over the ensuing 72 hours she noted increasing dyspnea/oxygen requirement, worsening w eakness malaise fever. Initial work-up in the ER was consistent with bilateral chest infiltrates steele ggestive of Covid pneumonia with profound hypoxia requiring 5 L oxygen. Patient was started on dexamethasone. Hospital service was consulted At the time of my evaluation patient is alert and oriented. She is able to talk in full sentences. She is moderately short of breath. Endorses to the [facility] being sick with upper respiratory symptoms. Denies travel. Denies changes in medications. Denies weight gain, bloody stool, diarrhea, dysuria, headache myalgias photophobia 04/12-patient status quo. On 2 L oxygen. No overnight fever chills. On remdesivir/dexamethasone. Leukopenic with white count 2.2 and platelets 106, potassium improved to 3.8 from 3.1, blood sugars 260, LFTs downtrending. Constitutional Vitals: Vital Signs Temp Pulse Resp BP Pulse Ox 96.0 F L 83 20 149/78 94 04/12/20 07:40 04/12/20 08:00 04/12/20 07:40 04/12/20 07:40 04/12/20 09:18 Period Temp Pulse Resp BP Sys/Crane Pulse Ox Last 24 Hr 96.0 F-98.6 F 63-95 - 103-195/46-168 88-96 Intake and Output 04/11/20 04/12/20 04/12/20 21:59 05:59 13:59 Intake Total 1018 450 100 Output Total 975 1400 100 Balance 43 -950 0 Weight 84.64 kg 84.64 kg Patient Weight 04/13/20 05:59 Weight 84.64 kg No anxiety Minimal labored breathing No telemetry events Minimal cough Intake & Output: Intake & Output 04/11/20 04/12/20 04/12/20 21:59 05:59 13:59 Intake Total 1018 450 100 Output Total 975 1400 100 Balance 43 -950 0 Weight 84.64 kg 84.64 kg Intake: IV 1018 Lactated Ringers 1,000 ml @ 150 768 mls/hr IV .[id number] [facility] Rx#: [id number] Veklury 200 mg In Sodium 250 Chloride 0.9% 250 ml @ 500 mls/ hr IV ONCE ONE Rx#:[id number] Oral 450 100 Output: Urine Catheter Amount 975 1400 100 Other: Meal Breakfast Percent of Meal Consumed 25% Feeding Ability Assist with Tray Set Up Urine Appearance Clear Clear Clear Uretheral (Villegas) Clear Clear Clear Urine Color Bright Yellow Bright Yellow Light Rabia Uretheral (Villegas) Bright Yellow Bright Yellow Bright Yellow Urine Odor Normal OBJ DATA Labs CBC & Chem 7: 04/12/20 04:56 04/12/20 04:56 Labs: Abnormal Lab Results 04/12/20 04/12/20 04/11/20 04:56 04:56 15:12 WBC 2.2 L Hgb 11.6 L MCHC 30.7 L RDW 16.4 H Plt Count 106 L Lymph # (Auto) Reactive Lymphocytes 3 H Platelet Estimate Decreased A RBC Morphology Abnormal A Anisocytosis 1+ A VBG Lactic Acid Potassium Glucose 261 H Calcium 7.9 L GGT 358 H AST 74 H ALT Lactate Dehydrogenase 366 H Total Protein 5.7 L Albumin 2.8 L Urine Protein 30 A Urine Glucose (UA) 50 A Ur Leukocyte Esterase 25 A Urine WBC 30 H Urine Bacteria Mod A Urine Mucus Few A 04/11/20 04/11/20 04/11/20 10:00 10:00 09:59 WBC 3.5 L Hgb 11.3 L MCHC RDW 16.5 H Plt Count 110 L Lymph # (Auto) 0.84 L Reactive Lymphocytes Platelet Estimate RBC Morphology Anisocytosis VBG Lactic Acid 2.4 H Potassium 3.1 L Glucose 217 H Calcium 8.3 L GGT AST 89 H ALT 42 H Lactate Dehydrogenase Total Protein Albumin 3.1 L Urine Protein Urine Glucose (UA) Ur Leukocyte Esterase Urine WBC Urine Bacteria Urine Mucus Meds: Medications Acetaminophen (Tylenol) 650 mg PO Q4-6HP PRN; Protocol PRN Reason: Per Pain Protocol/Fever > 101 Last Admin: 04/12/20 01:16 Dose: 650 mg Documented by: Bisacodyl (Dulcolax) 10 mg [place] Q2-3DAYS PRN PRN Reason: Constipation Dexamethasone (Decadron) 6 mg PO DAILY [facility] Last Admin: 04/12/20 09:00 Dose: 6 mg Documented by: Docusate Sodium (Colace) 100 mg PO BID [facility] Last Admin: 04/12/20 09:00 Dose: 100 mg Documented by: Estradiol (Estrace) 1 mg PO QDAY [facility] Furosemide (Lasix) 20 mg PO BID [facility] Guaifenesin/Codeine Phosphate (Robitussin Ac) 10 ml PO Q4HP PRN PRN Reason: Cough Last Admin: 04/11/20 23:48 Dose: 10 ml Documented by: Heparin Sodium (Porcine) (Heparin) 5,000 unit SQ Q12 [facility] Last Admin: 04/12/20 08:59 Dose: 5,000 unit Documented by: Hydralazine HCl (Apresoline) 10 - 20 mg IV Q4-6HP PRN PRN Reason: Hypertension Last Admin: 04/11/20 23:02 Dose: 10 mg Documented by: Potassium Chloride 40 meq/ (Dextrose) 520 mls @ 130 mls/hr IV UD PRN PRN Reason: K+ = or < 3.5 Acetaminophen (Ofirmev) 650 mg in 65 mls @ 130 mls/hr IV Q6HP PRN; Protocol PRN Reason: Per Pain Protocol/Fever > 101 Magnesium Sulfate (Magnesium Sulfate) 2 gm in 50 mls @ 50 mls/hr IV UD PRN PRN Reason: MG = or < 1.7 REMDESIVIR 100 mg/ Sodium (Chloride) 250 mls @ 500 mls/hr IV Q24H [facility] Stop: 04/15/20 10:29 Iron Carb/Multivit/Medical Director/Head Team Physician/Folic Acid (Multivitamin W/Minerals) 1 tab PO DAILY [facility] Last Admin: 04/12/20 08:59 Dose: 1 tab Documented by: Melatonin (Melatonin 3mg Tablet) 3 mg PO HSP PRN PRN Reason: Insomnia Non-Formulary Medication (Febuxostat [Uloric]) 80 mg PO QDAY [facility] Non-Formulary Medication (Sennosides [Senna]) 17.2 mg PO QHS [facility] Omeprazole (Prilosec) 20 mg PO QDAY [facility] Ondansetron HCl (Zofran Odt) 4 mg SL Q4-6HP PRN; Protocol PRN Reason: Nausea And Vomiting Ondansetron HCl (Zofran) 4 mg IV Q4-6HP PRN; Protocol PRN Reason: Nausea And Vomiting Polyethylene Glycol (Miralax) 17 gm PO DAILYP PRN PRN Reason: Constipation Fluticasone/Salmeterol (Advair 250-50 Diskus) puff INH Q12H [facility] Senna/Docusate Sodium (Senna Plus Tablet) 1 tab PO HS [facility] Last Admin: 04/11/20 21:07 Dose: 1 tab Documented by: Sodium Chloride (Saline Flush) 10 ml IV Q8 [facility] Last Admin: 04/12/20 04:26 Dose: 10 ml Documented by: A/P Narrative A/P Narrative: * Covid 19 pneumonia confirmed on imaging-continue remdesivir/dexamethasone. * Hypoxic respiratory failure continue supplemental oxygen. Wean oxygen as tolerated. Maintain Covid precautions * Hypokalemia-improved with replacement, potassium 3.8 * History of GERD continue PPI * History of reactive disease continue Advair * History of gout continue for febuxostat * Full code * Prophylaxis heparin Plan * Continue remdesivir/dexamethasone * Supplemental oxygen * COVID-19 precautions * Pre-existing medical condition management home meds * Discharge planning Time Spent With Patient Time: Total time spent is greater than 50% in coordination of care (as documented) at patient's floor/unit and/or counseling patient:
[2020-04-12] MEDS: REMDESIVIR 100 MG in 0.9 % SODIUM CHLORIDE 250 ML IV SCH (11:14)
[2020-04-12] MEDS: FLUTICASONE/SALMETEROL 250/50 INHALER #14 INH SCH ×2 (12:19→20:17)
[2020-04-12] MEDS: SENNOSIDES/DOCUSATE SODIUM 1 TAB TABLET PO SCH (20:18)
[2020-04-12] MEDS: FUROSEMIDE 20 MG TABLET PO SCH (20:18)
[2020-04-12] MEDS ORDERED: SENNOSIDES 17.2 MG PO SCH (21:00)
[2020-04-13] MEDS: 0.9 % SODIUM CHLORIDE 10 ML SYRINGE IV SCH ×4 (00:19→15:00)
[2020-04-13] MEDS: guaiFENesin/CODEINE 10 ML UDC PO PRN ×2 (00:20→04:28)
[2020-04-13 07:17] LABS: ALT/SGPT 37 U/L (<40); AST/SGOT 64 U/L (<32); Albumin 3.1 gm/dL (3.2-5.2); Albumin/Globulin Ratio 0.9 (1.0-2.3); Alkaline Phosphatase 72 U/L (39-117); Bilirubin,Direct 0.2 mg/dL (<0.3); Bilirubin,Total 0.4 mg/dL (0.1-1.0); Blood Urea Nitrogen 23 mg/dL (8-23); Calcium 8.8 mg/dL (8.6-10.4); Carbon Dioxide 24 mmol/L (22-30); Chloride 96 mmol/L (96-108); Globulin 3.3 gm/dL (2.2-3.7); Glomerular Filtration Rate 58; Glucose 246 mg/dL (70-105); Lactate Dehydrogenase 418 U/L (135-225); Phosphorous 2.7 mg/dL (2.5-4.5); Triglycerides 105 mg/dL (<150); Uric Acid 5.3 mg/dL (2.5-8.0)
--- NOTE | 2020-04-13 07:20 | XRay Report ---
INDICATION: Interval Change TECHNIQUE: AP portable chest x-ray COMPARISON: Previous chest x-rays dated 04/11/2020, 04/09/2020, 06/28/2019 FINDINGS: Lungs:Bilateral diffuse pulmonary parenchymal infiltrates with relative sparing of the right lung base. Infiltrates are worse since 04/11/2020 and new since 04/09/2020. Appearance is consistent with pneumonia and Covid pneumonia is possible Heart, vascular:No significant cardiomegaly. Pulmonary vascularity is normal. No pulmonary edema or pulmonary congestion Mediastinum, sasha:No mediastinal widening. No hilar mass Pleura:No pleural fluid. No pleural-based mass or calcification Skeletal:Negative. IMPRESSION: 1. Increased pulmonary parenchymal infiltrates consistent with pneumonia 2. Infiltrates are worse since 04/11/2020 and new since 04/09/2020 Interpreted and Authenticated by: Jovon Merrill 04/13/20
[2020-04-13] MEDS: MULTIVIT,THER IRON,CA,FA & MIN 1 TABLET PO SCH (08:29)
[2020-04-13] MEDS: FUROSEMIDE 20 MG TABLET PO SCH (08:29)
[2020-04-13] MEDS: DOCUSATE SODIUM 100 MG CAPSULE PO SCH (08:29)
[2020-04-13] MEDS: HEPARIN 5,000 UNIT/ML VIAL SQ SCH (08:29)
[2020-04-13] MEDS: DEXAMETHASONE 4 MG TABLET PO SCH (08:29)
[2020-04-13] MEDS: FLUTICASONE/SALMETEROL 250/50 INHALER #14 INH SCH (08:30)
[2020-04-13] MEDS ORDERED: ESTRADIOL 1 MG TABLET PO SCH (09:00)
[2020-04-13] MEDS ORDERED: Febuxostat [Uloric] 80 mg Tab PO SCH (09:00)
[2020-04-13] MEDS ORDERED: OMEPRAZOLE 20 MG CAPSULE PO SCH (09:00)
[2020-04-13] MEDS: REMDESIVIR 100 MG in 0.9 % SODIUM CHLORIDE 250 ML IV SCH (10:29)
--- NOTE | 2020-04-13 10:40 | Internal Med Progress Note ---
SUBJECTIVE Subjective Patient information: Note initiated : 04/13/20 at 10:36 am Service Date, if different from initiated Date: [] Patient: Idalia Holloway a 84 y/o F admitted on 04/11/20 for Covid positive, weakness, sob. Chief Complaint: History of present illness: Ms. Holloway is a 84 year old F with a history of gout/GERD/CKD stage III/CHF who presents to the ER with 5 days onset of worsen ing weakness/shortness of breath. Patient was evaluated in the ER 2 days ago and was diagnosed with Covid. However patient was stable enough to be discharged and was advised to continue self quarantine at home. Over the ensuing 72 hours she noted increasing dyspnea/oxygen requirement, worsening w eakness malaise fever. Initial work-up in the ER was consistent with bilateral chest infiltrates steele ggestive of Covid pneumonia with profound hypoxia requiring 5 L oxygen. Patient was started on dexamethasone. Hospital service was consulted At the time of my evaluation patient is alert and oriented. She is able to talk in full sentences. She is moderately short of breath. Endorses to the [facility] being sick with upper respiratory symptoms. Denies travel. Denies changes in medications. Denies weight gain, bloody stool, diarrhea, dysuria, headache myalgias photophobia 04/12-patient status quo. On 2 L oxygen. No overnight fever chills. On remdesivir/dexamethasone. Leukopenic with white count 2.2 and platelets 106, potassium improved to 3.8 from 3.1, blood sugars 260, LFTs downtrending. 04/13-patient clinically deteriorating now on 6 L high flow oxygen. Interval chest imaging worsening pneumonia. On remdesivir/dexamethasone. Continue prone positioning/contact precautionson. Constitutional Vitals: Vital Signs Temp Pulse Resp BP Pulse Ox 96.9 F L 69 26 H 148/66 89 L 04/13/20 07:02 04/13/20 08:34 04/13/20 08:34 04/13/20 07:02 04/13/20 08:34 Period Temp Pulse Resp BP Sys/Crane Pulse Ox Last 24 Hr 96.8 F-97.3 F 69-83 18-26 148-179/61-90 88-96 Intake and Output 04/12/20 04/13/20 04/13/20 21:59 05:59 13:59 Intake Total 200 Output Total 451 150 Balance 200 -451 -150 Weight 84.64 kg anxious Labored breathing Feels fatigued lethargic Intake & Output: Intake & Output 04/12/20 04/13/20 04/13/20 21:59 05:59 13:59 Intake Total 200 Output Total 451 150 Balance 200 -451 -150 Weight 84.64 kg Intake: Oral 200 Output: Void Amount 450 150 # of times incontinent of urine 1 Other: Meal Nourishment/Supplement Breakfast Percent of Meal Consumed 25% 25% Feeding Ability Assist with Tray Set Up Independent Urine Appearance Clear Clear Uretheral (Villegas) Clear Urine Color Straw Light Rabia Uretheral (Villegas) Bright Yellow Urine Odor Normal Stool Size Large Moderate Stool Color Brown Brown Stool Consistency Soft Soft Formed # Bowel Movements 1 1 OBJ DATA Labs CBC & Chem 7: 04/12/20 04:56 04/13/20 05:03 Labs: Abnormal Lab Results 04/13/20 04/12/20 04/12/20 05:03 04:56 04:56 WBC 2.2 L Hgb 11.6 L MCHC 30.7 L RDW 16.4 H Plt Count 106 L Lymph # (Auto) Reactive Lymphocytes 3 H Platelet Estimate Decreased A RBC Morphology Abnormal A Anisocytosis 1+ A VBG Lactic Acid Potassium Anion Gap 17.0 H Glucose 246 H 261 H Calcium 7.9 L GGT 356 H 358 H AST 64 H 74 H ALT Lactate Dehydrogenase 418 H 366 H Total Protein 5.7 L Albumin 3.1 L 2.8 L Albumin/Globulin Ratio 0.9 L Urine Protein Urine Glucose (UA) Ur Leukocyte Esterase Urine WBC Urine Bacteria Urine Mucus 04/11/20 04/11/20 04/11/20 15:12 10:00 10:00 WBC 3.5 L Hgb 11.3 L MCHC RDW 16.5 H Plt Count 110 L Lymph # (Auto) 0.84 L Reactive Lymphocytes Platelet Estimate RBC Morphology Anisocytosis VBG Lactic Acid 2.4 H Potassium Anion Gap Glucose Calcium GGT AST ALT Lactate Dehydrogenase Total Protein Albumin Albumin/Globulin Ratio Urine Protein 30 A Urine Glucose (UA) 50 A Ur Leukocyte Esterase 25 A Urine WBC 30 H Urine Bacteria Mod A Urine Mucus Few A 04/11/20 09:59 WBC Hgb MCHC RDW Plt Count Lymph # (Auto) Reactive Lymphocytes Platelet Estimate RBC Morphology Anisocytosis VBG Lactic Acid Potassium 3.1 L Anion Gap Glucose 217 H Calcium 8.3 L GGT AST 89 H ALT 42 H Lactate Dehydrogenase Total Protein Albumin 3.1 L Albumin/Globulin Ratio Urine Protein Urine Glucose (UA) Ur Leukocyte Esterase Urine WBC Urine Bacteria Urine Mucus Meds: Medications Acetaminophen (Tylenol) 650 mg PO Q4-6HP PRN; Protocol PRN Reason: Per Pain Protocol/Fever > 101 Last Admin: 04/12/20 01:16 Dose: 650 mg Documented by: Bisacodyl (Dulcolax) 10 mg [place] Q2-3DAYS PRN PRN Reason: Constipation Dexamethasone (Decadron) 6 mg PO DAILY [facility] Last Admin: 04/13/20 08:29 Dose: 6 mg Documented by: Docusate Sodium (Colace) 100 mg PO BID [facility] Last Admin: 04/13/20 08:29 Dose: 100 mg Documented by: Estradiol (Estrace) 1 mg PO QDAY [facility] Last Admin: 04/13/20 08:29 Dose: 1 mg Documented by: Furosemide (Lasix) 20 mg PO BID [facility] Last Admin: 04/13/20 08:29 Dose: 20 mg Documented by: Guaifenesin/Codeine Phosphate (Robitussin Ac) 10 ml PO Q4HP PRN PRN Reason: Cough Last Admin: 04/13/20 04:28 Dose: 10 ml Documented by: Heparin Sodium (Porcine) (Heparin) 5,000 unit SQ Q12 [facility] Last Admin: 04/13/20 08:29 Dose: 5,000 unit Documented by: Hydralazine HCl (Apresoline) 10 - 20 mg IV Q4-6HP PRN PRN Reason: Hypertension Last Admin: 04/11/20 23:02 Dose: 10 mg Documented by: Potassium Chloride 40 meq/ (Dextrose) 520 mls @ 130 mls/hr IV UD PRN PRN Reason: K+ = or < 3.5 Acetaminophen (Ofirmev) 650 mg in 65 mls @ 130 mls/hr IV Q6HP PRN; Protocol PRN Reason: Per Pain Protocol/Fever > 101 Magnesium Sulfate (Magnesium Sulfate) 2 gm in 50 mls @ 50 mls/hr IV UD PRN PRN Reason: MG = or < 1.7 REMDESIVIR 100 mg/ Sodium (Chloride) 250 mls @ 500 mls/hr IV Q24H [facility] Stop: 04/15/20 10:29 Last Admin: 04/13/20 10:29 Dose: 500 mls/hr Documented by: Iron Carb/Multivit/[place]/Folic Acid (Multivitamin W/Minerals) 1 tab PO DAILY [facility] Last Admin: 04/13/20 08:29 Dose: 1 tab Documented by: Melatonin (Melatonin 3mg Tablet) 3 mg PO HSP PRN PRN Reason: Insomnia Omeprazole (Prilosec) 20 mg PO QDAY [facility] Last Admin: 04/13/20 08:29 Dose: 20 mg Documented by: Ondansetron HCl (Zofran Odt) 4 mg SL Q4-6HP PRN; Protocol PRN Reason: Nausea And Vomiting Ondansetron HCl (Zofran) 4 mg IV Q4-6HP PRN; Protocol PRN Reason: Nausea And Vomiting Febuxostat [Uloric] (80 Mg Tab) 1 dose PO QDAY [facility] Last Admin: 04/13/20 09:02 Dose: 1 dose Documented by: Polyethylene Glycol (Miralax) 17 gm PO DAILYP PRN PRN Reason: Constipation Fluticasone/Salmeterol (Advair 250-50 Diskus) 1 puff INH Q12H [facility] Last Admin: 04/13/20 08:30 Dose: 1 puff Documented by: Senna/Docusate Sodium (Senna Plus Tablet) 1 tab PO HS [facility] Last Admin: 04/12/20 20:18 Dose: 1 tab Documented by: Sodium Chloride (Saline Flush) 10 ml IV Q8 [facility] Last Admin: 04/13/20 05:35 Dose: 10 ml Documented by: A/P Narrative A/P Narrative: * Covid 19 pneumonia-clinically deteriorating on imaging. Continue remdesivir/dexamethasone. if clinically deteriorating will transfer to tertiary center * Hypoxic respiratory failure -worsening overnight now on high flow 8 L oxygen. Prone positioning, Maintain Covid precautions * Complicated UTI- started On rocephin. De-escalate based on cultures * Hypokalemia- resolved * History of GERD continue PPI * History of reactive disease continue Advair * History of gout continue for febuxostat * Full code * Prophylaxis heparin Plan * Continue remdesivir/dexamethasone * Rocephin * Prone ventilation * COVID-19 precautions * Pre-existing medical condition management home meds * Transfer to tertiary center if clinical deterioration noted need for mechanical ventilation Time Spent With Patient Time: Total time spent is greater than 50% in coordination of care (as doc umented) at patient's floor/unit and/or counseling patient:
[2020-04-13] MEDS ORDERED: cefTRIAXone 2 GM in DEXTROSE 5% IN WATER 50 ML IV SCH (10:45)
[2020-04-13 11:10] LABS: Anisocytosis 1+ (None Seen); Band Neutrophils % 3 % (0-10); Hematocrit 40.8 % (36.0-48.0); Hemoglobin 12.4 g/dL (12.0-15.0); Lymphocytes % 21 % (15-49); Mean Cell Volume 86.3 fL (80.0-100.0); Mean Corpuscular HGB Conc 30.4 g/dL (31.0-36.0); Mean Platelet Volume 9.8 fL (7.4-10.4); Monocytes % (Manual) 7 % (1-12); Platelet Count 115 K/mcL (140-440); Platelet Estimate DECREASED (Normal); RBC 4.73 M/mcL (4.00-5.20); RBC Morphology ABNORMAL (Normal); Reactive Lymphocytes 4 % (0-2); Red Cell Distribution Width 16.3 % (11.5-14.5); Segmented Neutrophils % 65 % (38-78); WBC 3.4 K/mcL (4.5-11.0)
--- NOTE | 2020-04-13 19:54 | Transfer Summary ---
Discharge Provider Provider Patient information: Note initiated : 04/13/20 at 7:53 pm Service Date, if different from initiated Date: [] Patient: Idalia Holloway a 84 y/o F admitted on 04/13/20 for Covid positive, weakness, sob. Transfer Diagnosis * Covid 19 pneumonia-clinically deteriorating on imaging. Continue remdesivir/dexamethasone. clinically deteriorating- transfer to tertiary center * Hypoxic respiratory failure -worsening overnight high flow 8 L oxygen. Prone positioning, Now on non invasive ventilation 60%Fio2 * Complicated UTI- continue rocephin. CS awaited * Hypokalemia- resolved with replacement * History of GERD continue PPI * History of reactive airway disease managed on Advair * History of gout on febuxostat * Full code Hospital Course History of present illness: Ms. Holloway is a 84 year old F with a history of gout/GERD/CKD stage III/CHF who presents to the ER with 5 days onset of worsening weakness/shortness of breath. Patient was evaluated in the ER 2 days ago and was diagnosed with Covid. However patient was stable enough to be discharged and was advised to continue self quarantine at home. Over the ensuing 72 hours she noted increasing dyspnea/oxygen requirement, worsening weakness malaise fever. Initial work-up in the ER was consistent with bilateral chest infiltrates suggestive of Covid pneumonia with profound hypoxia requiring 5 L oxygen. Patient was started on dexamethasone. Hospital service was consulted At the time of my evaluation patient is alert and oriented. She is able to talk in full sentences. She is moderately short of breath. Endorses to the daughter being sick with upper respiratory symptoms. Denies travel. Denies changes in medications. Denies weight gain, bloody stool, diarrhea, dysuria, headache myalgias photophobia 04/12-patient status quo. On 2 L oxygen. No overnight fever chills. On remdesivir/dexamethasone. Leukopenic with white count 2.2 and platelets 106, potassium improved to 3.8 from 3.1, blood sugars 260, LFTs downtrending. 04/13-patient clinically deteriorating now on 6 L high flow oxygen. Interval chest imaging worsening pneumonia. On remdesivir/dexamethasone day 3. Continue prone positioning/contact precaution . 5.30 PM- responded to nurse call. Patient in profound respiratory distress requiring 8-10 L HF oxygen and barely maintaining sats at 90%. Associated bradycardia around mid 30s. Patient started on noninvasive ventilation. attempt to transfer to tertiary center ongoing. No beds available at [place]. Await callback from Joselyn Ramirez. Discussed with Carolyn patient's daughter on phone and informed of treatment and care plan. Patient accepted at [facility] , [facility] [employer] [facility] Hernández's Help in accepting and undertaking management of this critically il patient with COVID PNA Family/daughter will be informed of tranfer Date of admission: 04/13/20 16:03 Discharge date: 04/13/20 Primary care physician: Yohana Feliciano Consults: 04/11/20 12:38 Consult to Physician [CONS] Stat Comment: Consulting Provider: Wallace Smart Reason For Exam: Physician to Consult Discharge Meds Discharge Medications Home Medications omeprazole 20 mg capsule,delayed release 20 mg PO QDAY cap 03/09/15 [History Confirmed 04/11/20 Last Taken 04/10/20] estradiol 1 mg tablet 1 mg PO QDAY tab 05/21/19 [History Confirmed 04/11/20 Last Taken 04/10/20] febuxostat [Uloric] 80 mg PO QDAY 04/11/20 [History Confirmed 04/11/20 Last Taken 04/10/20] fluticasone propion-salmeterol [Advair Diskus] 1 inh INHALATION Q12H 04/11/20 [History Confirmed 04/11/20 Last Taken 04/10/20] furosemide [Lasix] 20 mg PO BID 04/11/20 [History Confirmed 04/11/20 Last Taken 04/10/20] prednisone 5 mg PO DAILY 04/11/20 [History Confirmed 04/11/20 Last Taken 04/10/20] sennosides [senna] 17.2 mg PO QHS 04/11/20 [History Confirmed 04/11/20 Last Taken 04/10/20] COURSE Hospital Course Hospital course: . Discharge diagnosis: . Time Spent with Patient Time attestation: Total time spent providing and/or coordinating discharge services: EXAM Constitutional Vitals: Temp Pulse Resp BP Pulse Ox 99.5 F H 56 L 19 188/94 98 04/13/20 16:00 04/13/20 17:38 04/13/20 17:38 04/13/20 16:00 04/13/20 17:38 Discharge Data Data Completed and Pending Labs on day of discharge: Labs from last 24 hours 04/13/20 04/13/20 05:03 05:03 WBC 3.4 L RBC 4.73 Hgb 12.4 Hct 40.8 MCV 86.3 MCH 26.2 MCHC 30.4 L RDW 16.3 H Plt Count 115 L MPV 9.8 Seg Neutrophils % 65 Band Neutrophils % 3 Lymphocytes % 21 Monocytes % (Manual) 7 Reactive Lymphocytes 4 H Platelet Estimate Decreased A RBC Morphology Abnormal A Anisocytosis 1+ A Sodium 137 Potassium 3.5 Chloride 96 Carbon Dioxide 24 Anion Gap 17.0 H BUN 23 Creatinine 0.9 GFR Calculation 58 Glucose 246 H Uric Acid 5.3 Calcium 8.8 Phosphorus 2.7 Magnesium 1.9 Total Bilirubin 0.4 Direct Bilirubin 0.2 GGT 356 H AST 64 H ALT 37 Alkaline Phosphatase 72 Lactate Dehydrogenase 418 H Total Protein 6.4 Albumin 3.1 L Globulin 3.3 Albumin/Globulin Ratio 0.9 L Triglycerides 105 Preliminary micro results at discharge 04/11/20 10:35 Blood Culture - Preliminary Blood 04/11/20 10:30 Blood Culture - Preliminary Blood Discharge Plan Patient/Caregiver Discharge Instructions Activity: other Prescriptions: No Action omeprazole 20 mg capsule,delayed release(DR/EC) 20 mg PO QDAY RF: 0 estradiol 1 mg tablet 1 mg PO QDAY RF: 0 fluticasone propion-salmeterol [Advair Diskus] 250-50 mcg/dose Blister With Device 1 inh INHALATION Q12H RF: 0 febuxostat [Uloric] 80 mg Tablet 80 mg PO QDAY RF: 0 prednisone 5 mg tablet 5 mg PO DAILY RF: 0 furosemide [Lasix] 20 mg Tablet 20 mg PO BID RF: 0 senna 8.6 mg Capsule 17.2 mg PO QHS RF: 0 Follow Up Plan Follow up with: Yohana Feliciano MD [Primary Care Provider] - Patient Disposition: [facility] Rehab Potential: Serious I certify that the patient requires SNF services: No Overall status at discharge: patient is not back to baseline Discharge Orders: Discharge Order (Routine); Ordered 04/13/20 Ordered By: Wallace Smart
== END 2020-04-13 20:55 | disposition short-term general hospital (02) | DRG 177 ==
LOC: ED 09:09 → ICU 14:37 → UNDODISIN 04-13 20:55
PROVIDERS: ADMIT Internal Medicine; ATTEND Internal Medicine